=== PATIENT | female | born 1940 | race American Indian/Alaskan Native ===

== ENCOUNTER 2016-11-08 09:30 | Outpatient (CLI) | payer MEDICARE ==
--- NOTE | 2016-11-10 14:31 | Vascular Lab Report ---
CAROTID DUPLEX STUDY: RIGHT PSVEDV CCA PROX:9312 CCA DIST:[id number] ICA PROX:[id number] ICA MID:[id number] ICA DIST:6714 ECA: [id number] VERT: 87 13 LEFT PSVEDV CCA PROX:7813 CCA DIST:9715 ICA PROX:13234 ICA MID:[id number] ICA DIST:[id number] ECA: [id number] VERT: 69 12 REASON FOR EXAM: Right eye visual disturbances. Possible transient monocular blindness. 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 Intimal thickening is noted in the right carotid bulb without significant plaque formation. The common carotid artery is patent. The external carotid artery is patent. The vertebral artery has antegrade flow. COMMENTS ON THE LEFT: Doppler frequency analysis is consistent with 50 to 79 percent diameter reduction by velocity criteria of the internal carotid artery. Minimal amount of calcified non-ulcerated plaque is noted. The common carotid artery is patent. The external carotid artery is patent. The vertebral artery has antegrade flow. 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 50 to 79 percent diameter reduction by velocity criteria only of the internal carotid artery noted on the left. Consider repeat carotid artery duplex in 12 months.
== END 2016-11-08 09:31 | disposition home or self-care (01) ==
LOC: VAS 09:30
PROVIDERS: ATTEND Psychiatry & Neurology Neurology
DX: H93.19 Tinnitus, unspecified ear (principal)
CPT/HCPCS: 93880

== ENCOUNTER 2016-11-11 10:01 | Emergency (ER) | payer MEDICARE ==
[2016-11-11] MEDS ORDERED: DUONEB 0.5 MG-3 MG/3 ML SOLN IH ONE ×3 (10:31→20:43)
[2016-11-11 19:20] LABS: Basophils % (Auto) 0.4 % (0.0-1.8); Eosinophils % (Auto) 0.2 % (0.0-4.3); Hematocrit 38.8 % (30.3-42.9); Hemoglobin 12.8 gm/dl (10.1-14.3); Mean Corpuscular HGB Conc 33 % (30-34); Mean Corpuscular Volume 79 fl (79-97); Platelet Count 151 K/mm3 (140-440); Red Blood Count 4.94 M/mm3 (3.65-5.03); Red Cell Distribution Width 16.8 % (13.2-15.2); White Blood Count 5.6 K/mm3 (4.5-11.0)
[2016-11-11 19:24] LABS: Mean Corpuscular Hemoglobin 26 pg (28-32)
[2016-11-11 19:46] LABS: Alanine Aminotransferase 14 units/L (7-56); Albumin/Globulin Ratio 1.3 %; Alkaline Phosphatase 53 units/L (35-129); Bilirubin,Total 0.4 mg/dL (0.1-1.2); Blood Urea Nitrogen 12 mg/dL (7-17); Calcium 10.2 mg/dL (8.4-10.2); Carbon Dioxide 28 mmol/L (22-30); Chloride 101.7 mmol/L (98-107); Creatine Kinase 57 units/L (30-135); Glucose 191 mg/dL (65-100); Potassium 4.6 mmol/L (3.6-5.0); Sodium 144 mmol/L (137-145)
[2016-11-11 19:54] LABS: Anion Gap 19 mmol/L
--- NOTE | 2016-11-11 20:04 | Emergency Department Report ---
ED Asthma HPI - General Chief Complaint: Adult Asthma Stated Complaint: ASTHMA/CRISTIANO/CHEST PAIN Time Seen by Provider: 11/11/16 18:35 Source: patient Mode of arrival: Wheelchair Limitations: No Limitations, Physical Limitation - History of Present Illness Initial Comments: Patient presents with cough and difficulty breathing x 3 weeks. She states she has been dx with asthma since 11yo. She has respiratory nebulizer and inhaler at home but states they were not helping with sob. She denies cold symptoms, CP , dizziness, n/v/d, fever, chills and has a hx of CHF, dvt, she denies to me hx of PE. She has a lengthy medical history. She is also c/o right shoulder pain 05/26, she denies injury, falling, swelling, brusing, redness. She denies hx of pain. She admits to worsening with movement and has not taken anything for the pain. MD Complaint: shortness of breath, wheezing -: Gradual, week(s) (3) Asthma History: childhood onset, history of prior ED visit Severity: moderate Context: none known Associated Symptoms: dry cough, chest pain Treatments Prior to Arrival: inhaled bronchodilator - Related Data Current Asthma Therapy: inhaled bronchodilator Home Medications Medication Instructions Recorded Confirmed Last Taken Prednisone [predniSONE] 2.5 mg PO QDAY 11/26/13 10/24/15 07/12/15 hydrALAZINE [Apresoline TAB] 25 mg PO Q8HR 01/30/15 10/24/15 07/12/15 Previous Rx's Medication Instructions Recorded Last Taken Type Insulin NPH Hum/Reg Insulin Hm 15 unit SQ BID #10 ml 01/26/15 07/19/15 Rx [HumuLIN 70-30 Vial] traZODone [Desyrel] 50 mg PO QHS tablet 01/26/15 07/19/15 Rx ALPRAZolam [Xanax TAB] 0.25 mg PO Q12HR #60 tablet 07/23/15 Unknown Rx Carvedilol [Coreg] 12.5 mg PO BID #30 tablet 07/23/15 Unknown Rx HYDROcodone/APAP 5-325 [Sedona 1 each PO Q8H PRN #30 tablet 07/23/15 Unknown Rx 5-325 mg TAB] Meclizine [Antivert] 25 mg PO Q12HR #30 tablet 07/23/15 Unknown Rx hydrALAZINE [Apresoline TAB] 100 mg PO Q8HR #90 tablet 07/23/15 Unknown Rx methylPREDNISolone [Medrol Dose 4 mg PO QAM #1 pack 07/23/15 Unknown Rx Edouard] Albuterol *Only Ed* [Proventil 2.5 mg IH Q6HRT PRN #1 nebu 02/22/16 1 Day Ago Rx 0.5% NEBS] 2.5 Alendronate Sodium [Fosamax] 70 mg PO QWEEK #4 tablet 02/22/16 1 Day Ago Rx 70 Aspirin EC [Aspirin Enteric Coated 81 mg PO QDAY #30 tablet 02/22/16 1 Day Ago Rx TAB] 81 Bisacodyl [Dulcolax suppos] 10 mg RI QDAY PRN #20 supp.rect 02/22/16 1 Day Ago Rx 10 Budesoni/Formotero 160-4.5(Nf) 10.2 gm IH PRN PRN #1 inha 02/22/16 1 Day Ago Rx [Symbicort 160-4.5 (Nf)] 10.2 Butalb/Acetamin/Caff 50-325-40 1 tab PO Q4H PRN #20 tablet 02/22/16 1 Day Ago Rx [Fioricet] 1 Clopidogrel [Plavix] 75 mg PO QDAY #30 tablet 02/22/16 1 Day Ago Rx 75 FLUoxetine [PROzac] 20 mg PO QDAY #30 capsule 02/22/16 1 Day Ago Rx 20 Famotidine [Pepcid] 20 mg PO BID #60 tablet 02/22/16 1 Day Ago Rx 20 Insulin NPH Hum/Reg Insulin Hm 15 unit SQ QAMDIAB #1 vial 02/22/16 1 Day Ago Rx [HumuLIN 70-30 Vial] 15 Losartan/Hydrochlorothiazide 1 each PO QDAY #30 tablet 02/22/16 1 Day Ago Rx [Hyzaar 100-25 TAB] 1 Lovastatin Tab [Mevacor] 20 mg PO QPM #60 tablet 02/22/16 1 Day Ago Rx 20 Magnesium Hydroxide [Milk of 30 ml PO Q4H PRN #20 oral.liqd 02/22/16 1 Day Ago Rx Magnesia] 30 Meclizine [Antivert] 25 mg PO Q12HR PRN #20 tablet 02/22/16 1 Day Ago Rx 25 Montelukast [Singulair] 10 mg PO QPM #30 tablet 02/22/16 1 Day Ago Rx 10 amLODIPine [Norvasc] 10 mg PO DAILY #30 tab 02/22/16 1 Day Ago Rx 10 cloNIDine [Catapres] 0.1 mg PO Q8HR #90 tablet 02/22/16 1 Day Ago Rx 0.1 hydrALAZINE [Apresoline TAB] 100 mg PO TID #90 tab 02/22/16 1 Day Ago Rx 100 Insulin NPH Hum/Reg Insulin Hm 15 unit SQ QDIPM #1 vial 04/07/16 1 Day Ago Rx [HumuLIN 70-30 Vial] 10 ALPRAZolam [Xanax TAB] 0.25 mg PO HS #14 tablet 06/26/16 Unknown Rx Benzonatate [Tessalon Perles] 100 mg PO Q8HR #21 capsule 06/26/16 Unknown Rx Fluticasone [Flonase] 200 mcg NS QDAY #1 bottle 06/26/16 Unknown Rx Levofloxacin [Levaquin TAB] 500 mg PO QDAY #5 tablet 06/26/16 Unknown Rx Lisinopril [Zestril TAB] 10 mg PO QDAY #30 tablet 06/26/16 Unknown Rx Loratadine [Claritin] 10 mg PO QDAY #30 tablet 06/26/16 Unknown Rx Magnesium Oxide [Mag-Ox] 400 mg PO QDAY #14 tablet 06/26/16 Unknown Rx predniSONE [Deltasone] 40 mg PO QDAY #5 tablet 06/26/16 Unknown Rx traMADol [Ultram 50 MG tab] 50 mg PO Q12H PRN #20 tablet 06/26/16 Unknown Rx Amoxicillin/K Clav Tab [Augmentin 1 tab PO Q12HR #10 tab 11/11/16 Unknown Rx 875 mg] HYDROcodone/APAP 5-325 [Sedona 1 each PO Q12HR PRN #6 tablet 11/11/16 Unknown Rx 5/325] Allergies Allergy/AdvReac Type Severity Reaction Status Date / Time No Known Allergies Allergy Verified 10/24/15 10:25 ED Review of Systems ROS: Stated complaint: ASTHMA/CRISTIANO/CHEST PAIN Other details as noted in HPI Constitutional: denies: chills, fever Eyes: denies: eye pain, eye discharge, vision change ENT: denies: ear pain, throat pain Respiratory: cough, shortness of breath. denies: wheezing Cardiovascular: chest pain (patient states due to cough). denies: palpitations Endocrine: no symptoms reported Gastrointestinal: denies: abdominal pain, nausea, diarrhea Genitourinary: denies: urgency, dysuria, discharge Musculoskeletal: as per HPI. denies: back pain, joint swelling, arthralgia Skin: denies: rash, lesions Neurological: denies: headache, weakness, paresthesias ED Past Medical Hx - Past Medical History Previous Medical History?: Yes Hx Hypertension: Yes Hx Heart Attack/AMI: No Hx Congestive Heart Failure: Yes Hx Diabetes: Yes Hx Deep Vein Thrombosis: Yes Hx Pulmonary Embolism: Yes Hx Arthritis: Yes Hx Kidney Stones: Yes Hx Asthma: Yes Hx COPD: No Hx Tuberculosis: No Hx HIV: No Additional medical history: Blood clots to bilateral legs, Legally blind - Surgical History Past Surgical History?: Yes Hx Coronary Stent: No Hx Pacemaker: No Hx Internal Defibrillator: No Additional Surgical History: fatty tumor from left shoulder removed. hysterectomy - Social History Smoking Status: Former Smoker Substance Use Type: Prescribed, Other - Medications Home Medications: Home Medications Medication Instructions Recorded Confirmed Last Taken Type Prednisone [predniSONE] 2.5 mg PO QDAY 11/26/13 10/24/15 07/12/15 History Insulin NPH Hum/Reg Insulin Hm 15 unit SQ BID #10 ml 01/26/15 10/24/15 07/19/15 Rx [HumuLIN 70-30 Vial] traZODone [Desyrel] 50 mg PO QHS tablet 01/26/15 10/24/15 07/19/15 Rx hydrALAZINE [Apresoline TAB] 25 mg PO Q8HR 01/30/15 10/24/15 07/12/15 History ALPRAZolam [Xanax TAB] 0.25 mg PO Q12HR #60 tablet 07/23/15 10/24/15 Unknown Rx Carvedilol [Coreg] 12.5 mg PO BID #30 tablet 07/23/15 10/24/15 Unknown Rx HYDROcodone/APAP 5-325 [Sedona 1 each PO Q8H PRN #30 tablet 07/23/15 10/24/15 Unknown Rx 5-325 mg TAB] Meclizine [Antivert] 25 mg PO Q12HR #30 tablet 07/23/15 10/24/15 Unknown Rx hydrALAZINE [Apresoline TAB] 100 mg PO Q8HR #90 tablet 07/23/15 10/24/15 Unknown Rx methylPREDNISolone [Medrol Dose 4 mg PO QAM #1 pack 07/23/15 10/24/15 Unknown Rx Edouard] Albuterol *Only Ed* [Proventil 2.5 mg IH Q6HRT PRN #1 nebu 02/22/16 06/23/16 1 Day Ago Rx 0.5% NEBS] 2.5 Alendronate Sodium [Fosamax] 70 mg PO QWEEK #4 tablet 02/22/16 06/23/16 1 Day Ago Rx 70 Aspirin EC [Aspirin Enteric Coated 81 mg PO QDAY #30 tablet 02/22/16 06/23/16 1 Day Ago Rx TAB] 81 Bisacodyl [Dulcolax suppos] 10 mg RI QDAY PRN #20 supp.rect 02/22/16 06/23/16 1 Day Ago Rx 10 Budesoni/Formotero 160-4.5(Nf) 10.2 gm IH PRN PRN #1 inha 02/22/16 06/23/16 1 Day Ago Rx [Symbicort 160-4.5 (Nf)] 10.2 Butalb/Acetamin/Caff 50-325-40 1 tab PO Q4H PRN #20 tablet 02/22/16 06/23/16 1 Day Ago Rx [Fioricet] 1 Clopidogrel [Plavix] 75 mg PO QDAY #30 tablet 02/22/16 06/23/16 1 Day Ago Rx 75 FLUoxetine [PROzac] 20 mg PO QDAY #30 capsule 02/22/16 06/23/16 1 Day Ago Rx 20 Famotidine [Pepcid] 20 mg PO BID #60 tablet 02/22/16 06/23/16 1 Day Ago Rx 20 Insulin NPH Hum/Reg Insulin Hm 15 unit SQ QAMDIAB #1 vial 02/22/16 06/23/16 1 Day Ago Rx [HumuLIN 70-30 Vial] 15 Losartan/Hydrochlorothiazide 1 each PO QDAY #30 tablet 02/22/16 06/23/16 1 Day Ago Rx [Hyzaar 100-25 TAB] 1 Lovastatin Tab [Mevacor] 20 mg PO QPM #60 tablet 02/22/16 06/23/16 1 Day Ago Rx 20 Magnesium Hydroxide [Milk of 30 ml PO Q4H PRN #20 oral.liqd 02/22/16 06/23/16 1 Day Ago Rx Magnesia] 30 Meclizine [Antivert] 25 mg PO Q12HR PRN #20 tablet 02/22/16 06/23/16 1 Day Ago Rx 25 Montelukast [Singulair] 10 mg PO QPM #30 tablet 02/22/16 06/23/16 1 Day Ago Rx 10 amLODIPine [Norvasc] 10 mg PO DAILY #30 tab 02/22/16 06/23/16 1 Day Ago Rx 10 cloNIDine [Catapres] 0.1 mg PO Q8HR #90 tablet 02/22/16 06/23/16 1 Day Ago Rx 0.1 hydrALAZINE [Apresoline TAB] 100 mg PO TID #90 tab 02/22/16 06/23/16 1 Day Ago Rx 100 Insulin NPH Hum/Reg Insulin Hm 15 unit SQ QDIPM #1 vial 04/07/16 06/23/16 1 Day Ago Rx [HumuLIN 70-30 Vial] 10 ALPRAZolam [Xanax TAB] 0.25 mg PO HS #14 tablet 06/26/16 Unknown Rx Benzonatate [Tessalon Perles] 100 mg PO Q8HR #21 capsule 06/26/16 Unknown Rx Fluticasone [Flonase] 200 mcg NS QDAY #1 bottle 06/26/16 Unknown Rx Levofloxacin [Levaquin TAB] 500 mg PO QDAY #5 tablet 06/26/16 Unknown Rx Lisinopril [Zestril TAB] 10 mg PO QDAY #30 tablet 06/26/16 Unknown Rx Loratadine [Claritin] 10 mg PO QDAY #30 tablet 06/26/16 Unknown Rx Magnesium Oxide [Mag-Ox] 400 mg PO QDAY #14 tablet 06/26/16 Unknown Rx predniSONE [Deltasone] 40 mg PO QDAY #5 tablet 06/26/16 Unknown Rx traMADol [Ultram 50 MG tab] 50 mg PO Q12H PRN #20 tablet 06/26/16 Unknown Rx Amoxicillin/K Clav Tab [Augmentin 1 tab PO Q12HR #10 tab 11/11/16 Unknown Rx 875 mg] HYDROcodone/APAP 5-325 [Sedona 1 each PO Q12HR PRN #6 tablet 11/11/16 Unknown Rx 5/325] ED Physical Exam - General Limitations: No Limitations General appearance: alert, in no apparent distress - Head Head exam: Present: atraumatic, normocephalic - Eye Eye exam: Present: other (patient is legally blind in both eyes) - ENT ENT exam: Present: mucous membranes moist - Neck Neck exam: Present: normal inspection, full ROM. Absent: tenderness - Respiratory Respiratory exam: Present: normal lung sounds bilaterally, wheezes (throughout) , rhonchi (throughout). Absent: respiratory distress - Cardiovascular Cardiovascular Exam: Present: regular rate, normal rhythm. Absent: systolic murmur, diastolic murmur, rubs, gallop - GI/Abdominal GI/Abdominal exam: Present: soft, normal bowel sounds. Absent: tenderness - Extremities Exam Extremities exam: Present: normal inspection, tenderness - Expanded Upper Extremity Exam Right Shoulder Exam: Present: normal inspection, full ROM (but with pain, unable to lift right arm above shoulder ), tenderness (anterior right shoulder and axilla) . Absent: swelling, abrasion, laceration Upper Arm exam: Present: normal inspection, tenderness (anteriorly). Absent: swelling, abrasion, laceration, ecchymosis, erythema Elbow exam: Present: normal inspection, full ROM. Absent: tenderness, swelling , abrasion, laceration, ecchymosis, deformity Forearm Wrist exam: Present: normal inspection, full ROM. Absent: tenderness, swelling, abrasion, laceration, ecchymosis Hand Wrist exam: Present: normal inspection, full ROM. Absent: tenderness, swelling, abrasion Neuro motor exam: Present: wrist extension intact, thumb opposition intact, thumb IP flexion intact, thumb adduction intact, fingers 2-5 abduction intact Neurosensory exam: Present: radial nerve intact, ulnar nerve intact Vascular: Present: normal capillary refill. Absent: vascular compromise - Back Exam Back exam: Present: normal inspection. Absent: tenderness - Neurological Exam Neurological exam: Present: alert, oriented X3 - Psychiatric Psychiatric exam: Present: normal affect, normal mood - Skin Skin exam: Present: warm, dry, intact, normal color. Absent: rash ED Course Vital Signs 11/11/16 11/11/16 11/11/16 10:24 19:40 21:54 Temperature 98.7 F 98.4 F Pulse Rate 65 59 L 59 L Respiratory 22 16 Rate Blood Pressure 143/94 185/65 Blood Pressure 205/74 [Left] O2 Sat by Pulse 100 99 Oximetry - Reevaluation(s) Reevaluation #1: 11/11/16 22:09 Patient has been given her home dose of insulin and sliding scale for administration of solumedrol. I have advised her to take her BG more frequently due to this. We have given her coreg and losartan (these are her daily medication she takes at night) for elevated bp. Patient admits to feeling much better, decreased sob, and decreased right shoulder pain. ED Medical Decision Making - Lab Data Result diagrams: 11/11/16 19:07 11/11/16 19:07 - Radiology Data PROCEDURE: XR CHEST ROUTINE 2V TECHNIQUE: Two view PA lateral chest HISTORY: sob, cough COMPARISON: No prior studies are available for comparison. FINDINGS: Mildly enlarged heart shadow. Mild central congestion. COPD. Bronchovascular sheath thickening evident. Moderate thoracic spine kyphosis. IMPRESSION: COPD. Central bronchitis. Mild cardiomegaly. PROCEDURE: XR SHOULDER 2 RT TECHNIQUE: Three views right shoulder HISTORY: shoulder pain COMPARISON: No prior studies are available for comparison. FINDINGS: Suspect mild swelling right shoulder. Moderate degenerative changes of the shoulder joint AC joint. No dislocation IMPRESSION: No acute fracture or dislocation seen - Medical Decision Making Patient presents with shortness of breath 3 weeks despite using nebulizer and inhalers at home. She also complains of right shoulder pain but denies injury. She already has tramadol at home but states this has only mildly helped the pain. I will give her Sedona 5 prescription for her shoulder pain. Her shoulder xray is unremarkable showing mild swelling. I have given her tramadol 50 mg, IV Medrol 80 mg here with mild improvement of pain and sob. After receiving respiratory nebulizer she states she is feeling better and breathing better. I will advise her to continue her daily prednisone and nebulizer/ inhalers at home. Lung sounds have improved after nebulizer treatment. Her CMP , CBC, BNP are all unremarkable. Her chest xray shows bronchitis, copd. I will treat her with Augmentin for the bronchitis. - Differential Diagnosis bronchitis, pneumonia, asthma, shoulder dislocation, shoulder fracture Critical Care Time: No Critical care attestation.: If time is entered above; I have spent that time in minutes in the direct care of this critically ill patient, excluding procedure time. ED Disposition Clinical Impression: Type 2 diabetes mellitus with insulin therapy, Steroid-dependent asthma, Bronchitis, Swelling of joint, shoulder, right, Hypertension, Acute asthma exacerbation Disposition: DISCHARGED TO HOME OR SELFCARE Is pt being admited?: No Does the pt Need Aspirin: No Condition: Stable Instructions: Diabetes Mellitus Type 2 in Adults (ED), Asthma (ED), Reactive Airways Disease (ED), Chronic Bronchitis (ED), Hypertension (ED) Additional Instructions: I will give you norco 5mg for your shoulder pain. Also advise to continue taking prednisone daily. Continue taking your nebulizer treatment and inhaler as prescribed. F/u with pulmonary doctor as discussed. Prescriptions: Amoxicillin/K Clav Tab [Augmentin 875 mg] 1 tab PO Q12HR #10 tab HYDROcodone/APAP 5-325 [Sedona 5/325] 1 each PO Q12HR PRN #6 tablet PRN Reason: Pain Referrals: GEMA BARROSO MD [Primary Care Provider] - 3-5 Days DINA ROACH MD [Staff Physician] - 3-5 Days Time of Disposition: 22:12
[2016-11-11] MEDS ORDERED: ULTRAM PO ONE (20:14)
--- NOTE | 2016-11-11 20:39 | XRay Report ---
FINAL REPORT PROCEDURE: XR SHOULDER 2 RT TECHNIQUE: Three views right shoulder HISTORY: shoulder pain COMPARISON: No prior studies are available for comparison. FINDINGS: Suspect mild swelling right shoulder. Moderate degenerative changes of the shoulder joint AC joint. No dislocation IMPRESSION: No acute fracture or dislocation seen
--- NOTE | 2016-11-11 20:40 | XRay Report ---
FINAL REPORT PROCEDURE: XR CHEST ROUTINE 2V TECHNIQUE: Two view PA lateral chest HISTORY: sob, cough COMPARISON: No prior studies are available for comparison. FINDINGS: Mildly enlarged heart shadow. Mild central congestion. COPD. Bronchovascular sheath thickening evident. Moderate thoracic spine kyphosis. IMPRESSION: COPD. Central bronchitis. Mild cardiomegaly.
[2016-11-11] MEDS ORDERED: COZAAR PO ONE (21:12)
[2016-11-11] MEDS ORDERED: COREG PO ONE (21:12)
[2016-11-11 22:48] VITALS: BP 176/67
== END 2016-11-11 22:51 | disposition home or self-care (01) ==
LOC: ED 10:01
DX: J45.901 Unspecified asthma with (acute) exacerbation (principal); E11.9 Type 2 diabetes mellitus without complications; M25.411 Effusion, right shoulder; I10 Essential (primary) hypertension; I82.409 Acute embolism and thrombosis of unspecified deep veins of unspecified lower extremity; M19.90 Unspecified osteoarthritis, unspecified site; Z79.4 Long term (current) use of insulin; Z98.890 Other specified postprocedural states; Z79.82 Long term (current) use of aspirin
CPT/HCPCS: 36415; 71020; 73030; 80053; 82550; 83880; 85025; 93005; 93010; 94640; 96372; 96374; 96375; 99284; J2920; J1815

== ENCOUNTER 2017-01-10 11:15 | Day surgery (SDC) | payer MEDICARE ==
[~2017-01-10 11:15] MED LIST: AK-Dilate OD ONE; IOPIDINE OD ONE; MYDRIACYL OD ONE
[2017-01-10] MEDS ORDERED: AK-Dilate OD ONE (11:45)
[2017-01-10] MEDS ORDERED: IOPIDINE OD ONE ×2 (11:45→12:37)
[2017-01-10] MEDS ORDERED: MYDRIACYL OD ONE (11:45)
[2017-01-10 12:50] VITALS: BP 142/60
== END 2017-01-10 12:38 | disposition home or self-care (01) ==
LOC: OR 11:15
PROVIDERS: ATTEND Ophthalmology
DX: E11.36 Type 2 diabetes mellitus with diabetic cataract (principal); H26.491 Other secondary cataract, right eye; I10 Essential (primary) hypertension; E78.00 Pure hypercholesterolemia, unspecified; J45.909 Unspecified asthma, uncomplicated; J44.9 Chronic obstructive pulmonary disease, unspecified; K21.9 Gastro-esophageal reflux disease without esophagitis; E66.9 Obesity, unspecified; Z68.41 Body mass index [BMI] 40.0-44.9, adult; Z87.891 Personal history of nicotine dependence; Z86.711 Personal history of pulmonary embolism; Z87.01 Personal history of pneumonia (recurrent)
CPT/HCPCS: 82962

== ENCOUNTER 2017-05-11 15:54 | Emergency (ER) | payer MEDICARE ==
[2017-05-11 16:11] VITALS: BP 141/96
[2017-05-11] MEDS: TYLENOL #3 PO ONE (18:03)
[2017-05-11] MEDS: ZOFRAN ODT PO ONE (18:03)
--- NOTE | 2017-05-11 19:40 | XRay Report ---
FINAL REPORT EXAM: XR HIPS BILAT 2V W/PELVIS HISTORY: fall/pain/rt hip TECHNIQUE: AP view of pelvis and frog-leg lateral view of right hip. PRIORS: None. FINDINGS: Mildly acute, cortical angulation along tensile side of right femoral head-neck junction may be positional. No other apparent fracture or dislocation. Degenerative changes in the bilateral hip joints and also lower lumbar spine. Diffuse soft tissue vascular calcifications in the bilateral proximal thighs. Remainder of soft tissues grossly unremarkable. IMPRESSION: 1. Mildly acute cortical angulation in the right femoral head-neck junction may be positional or artifactual, although subtle fracture not completely excluded. If symptoms persist or clinical suspicion remains high, correlation with CT may help in further evaluation, as clinically indicated. 2. Degenerative changes.
--- NOTE | 2017-05-11 21:32 | Cat Scan Report ---
FINAL REPORT EXAM: CT PELVIS WO CON HISTORY: r/opossible femur Head/neck fx TECHNIQUE: Spiral CT scanning of the pelvis. No oral or IV contrast administered. Multiplanar reformations. PRIORS: Bilateral hip radiographs of same date. FINDINGS: Diffuse osteopenia and degenerative change in the bilateral hip joints and lumbosacral spine. Small, geographic foci of decreased density in the bilateral superior femoral heads, right greater than left, with thin sclerotic margins may represent mild AVN. No significant femoral head flattening or other deformation. No acute fracture or dislocation. Soft tissues grossly unremarkable. Visualized bowel grossly unremarkable. No significant free peritoneal fluid. Diffuse aortoiliac calcification without aneurysmal dilatation. IMPRESSION: 1. No acute osseous abnormality. 2. Degenerative changes and possible small foci of AVN in the bilateral femoral heads, right greater than left.
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
== END 2017-05-11 22:35 | disposition home or self-care (01) ==
LOC: ED 15:54
DX: M25.551 Pain in right hip (principal); R11.0 Nausea; I11.0 Hypertensive heart disease with heart failure; I50.9 Heart failure, unspecified; E11.9 Type 2 diabetes mellitus without complications; M19.90 Unspecified osteoarthritis, unspecified site; K21.9 Gastro-esophageal reflux disease without esophagitis; J44.9 Chronic obstructive pulmonary disease, unspecified; Z91.018 Allergy to other foods; Z86.718 Personal history of other venous thrombosis and embolism; Z87.891 Personal history of nicotine dependence; Z79.4 Long term (current) use of insulin
CPT/HCPCS: 72192; 73521; 82962; 99284; Q0162

== ENCOUNTER 2017-07-22 12:02 | Outpatient (CLI) | payer MEDICARE ==
--- NOTE | 2017-07-23 10:14 | Vascular Lab Report ---
LOWER EXTREMITY VENOUS DUPLEX: REASON FOR EXAM: Swelling of the lower extremities. COMMENTS ON THE RIGHT: All veins visualized are freely compressible without evidence of internal echogenicity. Flow is spontaneous and phasic throughout. COMMENTS ON THE LEFT: All veins visualized are freely compressible without evidence of internal echogenicity. Flow is spontaneous and phasic throughout. IMPRESSION: No evidence of acute or chronic deep venous thrombosis in either lower extremity.
== END 2017-07-22 12:03 | disposition home or self-care (01) ==
LOC: VAS 12:02
PROVIDERS: ATTEND Podiatrist Foot & Ankle Surgery
DX: M79.89 Other specified soft tissue disorders (principal); M79.662 Pain in left lower leg
CPT/HCPCS: 93970

== ENCOUNTER 2017-10-20 16:37 | Inpatient (IN) | payer MEDICARE ==
[2017-10-20] MEDS ORDERED: PROVENTIL IH ONE (16:58)
[2017-10-20] MEDS ORDERED: ATROVENT IH ONE (16:58)
[2017-10-20 18:06] LABS: Basophils # (Auto) 0.1 K/mm3 (0.0-0.1); Basophils % (Auto) 1.2 % (0.0-1.8); Eosinophils # (Auto) 0.4 K/mm3 (0.0-0.4); Eosinophils % (Auto) 8.6 % (0.0-4.3); Hematocrit 34.9 % (30.3-42.9); Hemoglobin 11.6 gm/dl (10.1-14.3); Lymphocytes # (Auto) 1.4 K/mm3 (1.2-5.4); Lymphocytes % (Auto) 29.1 % (13.4-35.0); Mean Corpuscular HGB Conc 33 % (30-34); Mean Corpuscular Volume 78 fl (79-97); Monocytes # (Auto) 0.8 K/mm3 (0.0-0.8); Monocytes % (Auto) 15.7 % (0.0-7.3); Platelet Count 166 K/mm3 (140-440); Red Blood Count 4.45 M/mm3 (3.65-5.03); Red Cell Distribution Width 16.7 % (13.2-15.2)
[2017-10-20 18:08] LABS: Mean Corpuscular Hemoglobin 26 pg (28-32)
[2017-10-20 18:19] LABS: BUN/Creatinine Ratio 40; Blood Urea Nitrogen 24 mg/dL (7-17); Calcium 9.8 mg/dL (8.4-10.2); Hemolysis Index 6
--- NOTE | 2017-10-20 20:08 | XRay Report ---
FINAL REPORT EXAM: XR CHEST ROUTINE 2V HISTORY: Shortness of breath TECHNIQUE: Two views of the chest Comparison: 06/10/2017, 11/01/2016 FINDINGS: Heart size is mildly enlarged. There are ill-defined primarily basilar infiltrates. There has been previous vertebroplasty. There is underlying emphysema with peribronchial chronic thickening. The aorta is atherosclerotic. IMPRESSION: Cardiomegaly. Peribronchial thickening with mild ill-defined bilateral basal infiltrates without focal consolidation. These findings may be chronic. There are no pleural effusions. Previous kyphoplasty/vertebroplasty.
[2017-10-21] MEDS ORDERED: LOPRESSOR IV ONE ×2 (02:58→05:13)
[2017-10-21] MEDS ORDERED: DUONEB *Not for PRN Use IH ONE ×2 (03:00→11:40)
[2017-10-21 03:42] LABS: INR 1.06 (0.87-1.13)
--- NOTE | 2017-10-21 04:20 | Emergency Department Report ---
HPI - General Chief Complaint: Dyspnea/Respdistress Time Seen by Provider: 10/21/17 02:38 - HPI HPI: This is a 77-year-old after [place] female presents to the emergency department from home, brought in by a friend, with complaint of a one-week history of shortness breath, wheezing and "rattling in my chest." She also says that she has some chest tightness and/or discomfort. She has been using her albuterol inhaler and nebulizer treatments without much relief. She has a past medical history significant for asthma, CHF, COPD, diabetes, GERD, hypertension and previous PE and DVTs. No recent travel or sick contacts at home. Her PCP is Dr. Navarro but she has not seen them regarding her symptoms. ED Past Medical Hx - Past Medical History Hx Hypertension: Yes Hx Heart Attack/AMI: No Hx Congestive Heart Failure: Yes (IN THE PAST , RESOLVED) Hx Diabetes: Yes Hx Deep Vein Thrombosis: Yes Hx Pulmonary Embolism: Yes Hx GERD: Yes Hx Arthritis: Yes Hx Kidney Stones: Yes Hx Asthma: Yes Hx COPD: Yes Hx Tuberculosis: No Hx HIV: No Additional medical history: Blood clots to bilateral legs, Legally blind - Surgical History Hx Coronary Stent: No Hx Pacemaker: No Hx Internal Defibrillator: No Additional Surgical History: fatty tumor from left shoulder removed. hysterectomy - Social History Smoking Status: Never Smoker Substance Use Type: None - Medications Home Medications: Home Medications Medication Instructions Recorded Confirmed Last Taken Type Alendronate Sodium [Fosamax] 70 mg PO QWEEK #4 tablet 02/22/16 10/21/17 1 Day Ago Rx ~04/05/16 70 Clopidogrel [Plavix] 75 mg PO QDAY #30 tablet 02/22/16 10/21/17 10/20/17 Rx Montelukast [Singulair] 10 mg PO QPM #30 tablet 02/22/16 10/21/17 10/20/17 Rx Bumetanide [Bumex 1 mg tab] 0.5 mg PO QDAY 06/10/17 10/21/17 10/20/17 History Fluticasone/Vilanterol [Breo 1 puff PO QDAY 06/10/17 10/21/17 Unknown History Ellipta 100-25 Mcg INH] Insulin NPH/Regular [NovoLIN 70/30] 10 units SC QPM 06/10/17 10/21/17 10/20/17 History Insulin NPH/Regular [NovoLIN 70/30] 15 units SC QAM 06/10/17 10/21/17 10/20/17 History Lovastatin Tab [Mevacor] 20 mg PO QHS 06/10/17 10/21/17 10/20/17 History Ranitidine HCl [Zantac 150 MG TAB] 150 mg PO BID 06/10/17 10/21/17 10/20/17 History amLODIPine [Norvasc] 5 mg PO QDAY 06/10/17 10/21/17 10/20/17 History glipiZIDE [Glucotrol] 5 mg PO QDAY 06/10/17 10/21/17 10/20/17 History prednisoLONE 1% SOD PHOSP(NF) 1 drop OS BID 06/10/17 10/24/17 10/20/17 History [Prednisol (Nf)] traZODone [Desyrel] 50 mg PO QHS 06/10/17 10/21/17 10/19/17 History ALBUTEROL Inhaler [ProAir HFA 2 puff IH QID PRN 10/21/17 10/21/17 Unknown History Inhaler] Albuterol Sulfate [Albuterol 0.63% 0.083 mg IH Q4HR PRN 10/21/17 10/21/17 Unknown History NEBS] Docusate Sodium [Colace CAP] 100 mg PO BID PRN 10/21/17 10/21/17 Unknown History Ferrous Sulfate [Feosol 325 MG tab] 325 mg PO BID 10/21/17 10/21/17 10/20/17 History Fluticasone/Vilanterol [Breo 1 each IH Q4HR PRN 10/21/17 10/21/17 Unknown History Ellipta 200-25 Mcg INH] Losartan Potassium 100 mg PO DAILY 10/21/17 10/21/17 10/20/17 History Potassium Chloride [K-Dur] 10 meq PO QDAY 10/21/17 10/21/17 10/20/17 History cloNIDine [Catapres] 0.1 mg PO BID PRN 10/21/17 10/21/17 Unknown History hydrALAZINE [Apresoline TAB] 100 mg PO BID 10/21/17 10/21/17 10/20/17 History Azithromycin [Zithromax] 250 mg PO DAILY #5 tablet 10/24/17 Unknown Rx predniSONE [Deltasone] 50 mg PO QDAY #5 tab 10/24/17 Unknown Rx ED Review of Systems ROS: Stated complaint: SOB Other details as noted in HPI Comment: All other systems reviewed and negative Constitutional: denies: chills, fever Eyes: denies: eye pain, eye discharge, vision change ENT: denies: ear pain, throat pain Respiratory: cough, shortness of breath, wheezing Cardiovascular: chest pain. denies: palpitations Gastrointestinal: denies: abdominal pain, nausea, diarrhea Genitourinary: denies: urgency, dysuria, discharge Musculoskeletal: denies: back pain, joint swelling, arthralgia Skin: denies: rash, lesions Neurological: denies: headache, weakness, paresthesias Physical Exam - Physical Exam Vital Signs: Vital Signs 10/20/17 10/21/17 10/21/17 16:52 00:13 02:35 Temperature 98.3 F 98.1 F Pulse Rate 82 76 Pulse Rate [ Bilateral Throughout] Respiratory 26 H 16 Rate Respiratory Rate [Bilateral Throughout] Blood Pressure 182/66 186/66 Blood Pressure 182/66 [Left] O2 Sat by Pulse 99 98 96 Oximetry 10/21/17 10/21/17 10/21/17 02:45 03:01 03:24 Temperature Pulse Rate 75 73 Pulse Rate [ 82 Bilateral Throughout] Respiratory 18 17 Rate Respiratory 18 Rate [Bilateral Throughout] Blood Pressure 174/65 195/106 Blood Pressure [Left] O2 Sat by Pulse 97 97 Oximetry Physical Exam: GEN: patient well-nourished and well-developed. No acute distress HENT: Atraumatic. Normocephalic. Oropharynx clear. No nystagmus EYES: PERRLA. EOMI. NECK: No midline tenderness to palpation or deformity. No meningismus signs. Full ROM. CARDIO: regular rhythm. Mild tachycardia. Normal heart sounds S1 and S2. No murmurs rubs or gallops. LUNGS:Wheezing throughout the chest. A productive cough heard during examination. Tachypnea but no accessory muscle use. No respiratory distress. ABDOMEN: abdomen is soft, nontender. Normal bowel sounds heard. No guarding a rebound tenderness. MUSCULOSKELETAL: normal range of motion of all four extremities. Nontender to palpation and no deformity.Muscle strength is five out of five for upper and lower extremities bilaterally. Refill less than two seconds. Radial pulses +2 or four bilaterally. SKIN: warm, dry, and intact. NEURO: AAO x 3. Cranial nerves II - XI grossly intact. Patient is following all commands. No slurred speech or gait problems. ED Course Vital Signs 10/20/17 10/21/17 10/21/17 16:52 00:13 02:35 Temperature 98.3 F 98.1 F Pulse Rate 82 76 Pulse Rate [ Bilateral Throughout] Respiratory 26 H 16 Rate Respiratory Rate [Bilateral Throughout] Blood Pressure 182/66 186/66 Blood Pressure 182/66 [Left] O2 Sat by Pulse 99 98 96 Oximetry 10/21/17 10/21/17 10/21/17 02:45 03:01 03:24 Temperature Pulse Rate 75 73 Pulse Rate [ 82 Bilateral Throughout] Respiratory 18 17 Rate Respiratory 18 Rate [Bilateral Throughout] Blood Pressure 174/65 195/106 Blood Pressure [Left] O2 Sat by Pulse 97 97 Oximetry ED Medical Decision Making - Lab Data Result diagrams: 10/23/17 09:31 10/23/17 09:31 - EKG Data -: EKG Interpreted by Me EKG shows normal: sinus rhythm, axis, intervals, QRS complexes, ST-T waves Rate: normal - EKG Data When compared to previous EKG there are: no significant change Interpretation: normal EKG, unchanged when compared t (06/10/17) - Radiology Data Radiology results: report reviewed, image reviewed interpreted by me: Chest x-ray does not show any pleural effusions, obvious pneumonia and no pneumothorax. EXAM: CT ANGIO CHEST HISTORY: SOB, elevated dimer TECHNIQUE: A CT angiogram was performed following the intravenous injection of 100 cc of Omnipaque 350. Rotational, sagittal and coronal reconstructions were reviewed. Comparison is made to the study of 02/16/2016. FINDINGS: There is no evidence of pulmonary embolus. There is calcified plaque in the thoracic aorta. There is no evidence of aneurysm. The heart size is normal. Pericardial fluid is not seen. There is no evidence of adenopathy. The lungs do not show any acute infiltrates. There is mild interstitial prominence in both lungs. There is minimal dependent atelectasis in the bases. Pleural fluid is not seen. In the upper abdomen there is a small hiatal hernia. The adrenal glands appear normal. The skeletal structures reveal multilevel disc degeneration in the thoracic spine. There is a chronic compression fracture of L1 with kyphoplasty changes. At the thoracic inlet the thyroid gland appears normal. IMPRESSION: No evidence of pulmonary embolus or aortic dissection. Mild interstitial prominence in both lungs with minimal dependent atelectasis in the bases. No localized infiltrates or congestion. Small hiatal hernia. Transcribed By: RB Dictated By: ABRAM TURNER MD Electronically Authenticated By: ABRAM TURNER MD Signed Date/Time: 1770 - Medical Decision Making This patient presents with a few days of shortness of breath, wheezing and some chest tightness and/or discomfort. She has a history of asthma and COPD. She had an equivocal D dimer so CT angiography was done that did not show any signs of dissection or pulmonary embolism. She was given breathing treatments, steroids. She will be admitted to hospital for further evaluation and treatment has been accepted for admission with hospitalist. - Differential Diagnosis COPD, asthma, pneumonia, PE, AR Critical Care Time: No Critical care attestation.: If time is entered above; I have spent that time in minutes in the direct care of this critically ill patient, excluding procedure time. ED Disposition Clinical Impression: COPD exacerbation Acute asthma exacerbation Qualifiers: Asthma severity: unspecified severity Asthma persistence: unspecified Qualified Code(s): J45.901 - Unspecified asthma with (acute) exacerbation Chest pain Qualifiers: Chest pain type: unspecified Qualified Code(s): R07.9 - Chest pain, unspecified Disposition: DC-01 TO HOME OR SELFCARE Is pt being admited?: Yes Condition: Stable
--- NOTE | 2017-10-21 06:39 | Cat Scan Report ---
FINAL REPORT EXAM: CT ANGIO CHEST HISTORY: SOB, elevated dimer TECHNIQUE: A CT angiogram was performed following the intravenous injection of 100 cc of Omnipaque 350. Rotational, sagittal and coronal reconstructions were reviewed. Comparison is made to the study of 02/16/2016. FINDINGS: There is no evidence of pulmonary embolus. There is calcified plaque in the thoracic aorta. There is no evidence of aneurysm. The heart size is normal. Pericardial fluid is not seen. There is no evidence of adenopathy. The lungs do not show any acute infiltrates. There is mild interstitial prominence in both lungs. There is minimal dependent atelectasis in the bases. Pleural fluid is not seen. In the upper abdomen there is a small hiatal hernia. The adrenal glands appear normal. The skeletal structures reveal multilevel disc degeneration in the thoracic spine. There is a chronic compression fracture of L1 with kyphoplasty changes. At the thoracic inlet the thyroid gland appears normal. IMPRESSION: No evidence of pulmonary embolus or aortic dissection. Mild interstitial prominence in both lungs with minimal dependent atelectasis in the bases. No localized infiltrates or congestion. Small hiatal hernia.
--- NOTE | 2017-10-21 09:54 | History and Physical Report ---
History of Present Illness Date of examination: 10/21/17 Date of admission: 10/21/2017 Chief complaint: chief complaint: Increasing wheezing and shortness of breath. 1 week. History of present illness: - HPI HPI: This is a 77-year-old female presents to the emergency department from home, brought in by a friend, with complaint of a one-week history of shortness breath , and wheezing .She also says that she has some chest tightness and/or discomfort. She has been using her albuterol inhaler and nebulizer treatments without much relief. She has a past medical history significant for asthma, CHF , COPD, diabetes, GERD, hypertension and previous PE and DVTs. No recent travel or sick contacts at home. Her PCP is Dr. Navarro but she has not seen them regarding her symptoms. Past Medical History Hx Hypertension: Yes Hx Congestive Heart Failure: Yes (IN THE PAST , RESOLVED) Hx Diabetes: Yes Hx Deep Vein Thrombosis: Yes Hx Pulmonary Embolism: Yes Hx GERD: Yes Hx Arthritis: Yes Hx Kidney Stones: Yes Hx Asthma: Yes Hx COPD: Yes Additional medical history: Blood clots to bilateral legs, Legally blind Surgical History Fatty tumor from left shoulder removed. hysterectomy - Social History Smoking Status: Never Smoker Substance Use Type: None - Medications Home Medications: Home Medications Medication Instructions Recorded Confirmed Last Taken Type Alendronate Sodium [Fosamax] 70 mg PO QWEEK #4 tablet 02/22/16 06/10/17 1 Day Ago Rx ~04/05/16 70 Clopidogrel [Plavix] 75 mg PO QDAY #30 tablet 02/22/16 06/10/17 1 Day Ago Rx ~04/05/16 75 Montelukast [Singulair] 10 mg PO QPM #30 tablet 02/22/16 06/10/17 1 Day Ago Rx ~04/05/16 10 Bumetanide [Bumex 1 mg tab] 0.5 mg PO QDAY 06/10/17 06/10/17 Unknown History Cholecalciferol Vit D3 [Vitamin D3] 1 tab PO QDAY 06/10/17 06/10/17 Unknown History Fluticasone [Flonase] 200 mcg NS BID 06/10/17 06/10/17 Unknown History Fluticasone/Vilanterol [Breo 1 puff PO QDAY 06/10/17 06/10/17 Unknown History Ellipta 100-25 Mcg INH] Gabapentin [Neurontin] 300 mg PO QHS 06/10/17 06/10/17 Unknown History Insulin NPH/Regular [NovoLIN 70/30] 10 units SC QPM 06/10/17 06/10/17 Unknown History Insulin NPH/Regular [NovoLIN 70/30] 15 units SC QAM 06/10/17 06/10/17 Unknown History Lovastatin Tab [Mevacor] 20 mg PO QHS 06/10/17 06/10/17 Unknown History Meclizine [Antivert] 25 mg PO QDAY PRN 06/10/17 06/10/17 Unknown History Mv,Jhonathan,Min/Iron/Folic Acid/Lut 1 tab PO QDAY 06/10/17 06/10/17 Unknown History [Complete Multi Tablet] Ranitidine HCl [Zantac 150 MG TAB] 150 mg PO BID 06/10/17 06/10/17 Unknown History amLODIPine [Norvasc] 5 mg PO QDAY 06/10/17 06/10/17 Unknown History glipiZIDE [Glucotrol] 5 mg PO QDAY 06/10/17 06/10/17 Unknown History prednisoLONE 1% SOD PHOSP(NF) 1 drop OS QDAY 06/10/17 06/10/17 Unknown History [Prednisol (Nf)] traZODone [Desyrel] 50 mg PO QHS 06/10/17 06/10/17 Unknown History Levofloxacin [Levaquin TAB] 500 mg PO QDAY #7 tablet 06/12/17 Unknown Rx cloNIDine [Catapres] 0.2 mg PO BID #60 tablet 06/12/17 Unknown Rx Carvedilol [Coreg] 3.125 mg PO BID #60 tablet 06/13/17 Unknown Rx ROS: Stated complaint: SOB Other details as noted in HPI Comment: All other systems reviewed and negative Constitutional: denies: chills, fever Eyes: denies: eye pain, eye discharge, vision change ENT: denies: ear pain, throat pain Respiratory: cough, shortness of breath, wheezing Cardiovascular: chest pain. denies: palpitations Gastrointestinal: denies: abdominal pain, nausea, diarrhea Genitourinary: denies: urgency, dysuria, discharge Musculoskeletal: denies: back pain, joint swelling, arthralgia Skin: denies: rash, lesions Neurological: denies: headache, weakness, paresthesias Medications and Allergies Allergies Allergy/AdvReac Type Severity Reaction Status Date / Time avocado Allergy Unknown Verified 05/11/17 16:05 peanut Allergy Itching Verified 05/11/17 16:05 soybean Allergy Unknown Verified 05/11/17 16:05 KETCHUP Allergy Itching Uncoded 05/11/17 16:05 Home Medications Medication Instructions Recorded Confirmed Last Taken Type Alendronate Sodium [Fosamax] 70 mg PO QWEEK #4 tablet 02/22/16 10/21/17 1 Day Ago Rx ~04/05/16 70 Clopidogrel [Plavix] 75 mg PO QDAY #30 tablet 02/22/16 10/21/17 10/20/17 Rx Montelukast [Singulair] 10 mg PO QPM #30 tablet 02/22/16 10/21/17 10/20/17 Rx Bumetanide [Bumex 1 mg tab] 0.5 mg PO QDAY 06/10/17 10/21/17 10/20/17 History Fluticasone/Vilanterol [Breo 1 puff PO QDAY 06/10/17 10/21/17 Unknown History Ellipta 100-25 Mcg INH] Insulin NPH/Regular [NovoLIN 70/30] 10 units SC QPM 06/10/17 10/21/17 10/20/17 History Insulin NPH/Regular [NovoLIN 70/30] 15 units SC QAM 06/10/17 10/21/17 10/20/17 History Lovastatin Tab [Mevacor] 20 mg PO QHS 06/10/17 10/21/17 10/20/17 History Ranitidine HCl [Zantac 150 MG TAB] 150 mg PO BID 06/10/17 10/21/17 10/20/17 History amLODIPine [Norvasc] 5 mg PO QDAY 06/10/17 10/21/17 10/20/17 History glipiZIDE [Glucotrol] 5 mg PO QDAY 06/10/17 10/21/17 10/20/17 History prednisoLONE 1% SOD PHOSP(NF) 1 drop OS QDAY 06/10/17 10/21/17 10/20/17 History [Prednisol (Nf)] traZODone [Desyrel] 50 mg PO QHS 06/10/17 10/21/17 10/19/17 History ALBUTEROL Inhaler [Proair] 2 puff IH QID PRN 10/21/17 10/21/17 Unknown History Albuterol Sulfate [Albuterol 0.63% 0.083 mg IH Q4HR PRN 10/21/17 10/21/17 Unknown History NEBS] Docusate Sodium [Colace] 100 mg PO BID PRN 10/21/17 10/21/17 Unknown History Ferrous Sulfate [Feosol] 325 mg PO BID 10/21/17 10/21/17 10/20/17 History Fluticasone/Vilanterol [Breo 1 each IH Q4HR PRN 10/21/17 10/21/17 Unknown History Ellipta 200-25 Mcg INH] Losartan Potassium 100 mg PO DAILY 10/21/17 10/21/17 10/20/17 History Potassium Chloride [K-Dur] 10 meq PO QDAY 10/21/17 10/21/17 10/20/17 History cloNIDine [Catapres] 0.1 mg PO BID PRN 10/21/17 10/21/17 Unknown History hydrALAZINE [Apresoline TAB] 100 mg PO BID 10/21/17 10/21/17 10/20/17 History Exam - Constitutional Vitals: Temp Pulse Resp BP Pulse Ox 98.1 F 77 18 165/72 97 10/21/17 00:13 10/21/17 06:58 10/21/17 06:58 10/21/17 06:58 10/21/17 06:58 General appearance: Present: mild distress, well-nourished - EENT Eyes: Present: PERRL ENT: hearing intact, clear oral mucosa - Neck Neck: Present: supple, normal ROM - Respiratory Respiratory effort: normal Respiratory: bilateral: diminished, rhonchi - Cardiovascular Heart rate: 70 Rhythm: regular (70) Heart Sounds: Present: S1 & S2. Absent: rub, click - Extremities Extremities: no ischemia, pulses intact, pulses symmetrical, No edema Peripheral Pulses: within normal limits - Abdominal General gastrointestinal: Present: soft, non-tender, non-distended, normal bowel sounds Female genitourinary: Present: normal - Integumentary Integumentary: Present: clear, warm, dry - Musculoskeletal Musculoskeletal: gait normal, strength equal bilaterally - Psychiatric Psychiatric: appropriate mood/affect, intact judgment & insight - Neurologic Neurologic: CNII-XII intact, moves all extremities - Allied Health Allied health notes reviewed: nursing Results - Labs CBC & Chem 7: 10/20/17 17:54 10/20/17 17:54 Labs: Laboratory Last Values WBC 4.8 K/mm3 (4.5-11.0) 10/20/17 17:54 RBC 4.45 M/mm3 (3.65-5.03) 10/20/17 17:54 Hgb 11.6 gm/dl (10.1-14.3) 10/20/17 17:54 Hct 34.9 % (30.3-42.9) 10/20/17 17:54 MCV 78 fl (79-97) L 10/20/17 17:54 MCH 26 pg (28-32) L 10/20/17 17:54 MCHC 33 % (30-34) 10/20/17 17:54 RDW 16.7 % (13.2-15.2) H 10/20/17 17:54 Plt Count 166 K/mm3 (140-440) 10/20/17 17:54 Lymph % (Auto) 29.1 % (13.4-35.0) 10/20/17 17:54 [place] % (Auto) 15.7 % (0.0-7.3) H 10/20/17 17:54 Eos % (Auto) 8.6 % (0.0-4.3) H 10/20/17 17:54 Baso % (Auto) 1.2 % (0.0-1.8) 10/20/17 17:54 Lymph # 1.4 K/mm3 (1.2-5.4) 10/20/17 17:54 [place] # 0.8 K/mm3 (0.0-0.8) 10/20/17 17:54 Eos # 0.4 K/mm3 (0.0-0.4) 10/20/17 17:54 Baso # 0.1 K/mm3 (0.0-0.1) 10/20/17 17:54 Seg Neutrophils % 45.4 % (40.0-70.0) 10/20/17 17:54 Seg Neutrophils # 2.2 K/mm3 (1.8-7.7) 10/20/17 17:54 PT 14.4 Sec. (12.2-14.9) 10/21/17 03:14 INR 1.06 (0.87-1.13) 10/21/17 03:14 APTT 32.0 Sec. (24.2-36.6) 10/21/17 03:14 D-Dimer 326.44 ng/mlDDU (0-234) H 10/21/17 03:14 Sodium 140 mmol/L (137-145) 10/20/17 17:54 Potassium 4.4 mmol/L (3.6-5.0) 10/20/17 17:54 Chloride 100.1 mmol/L (98-107) 10/20/17 17:54 Carbon Dioxide 27 mmol/L (22-30) 10/20/17 17:54 Anion Gap 17 mmol/L 10/20/17 17:54 BUN 24 mg/dL (7-17) H 10/20/17 17:54 Creatinine 0.6 mg/dL (0.7-1.2) L 10/20/17 17:54 Estimated GFR > 60 ml/min 10/20/17 17:54 BUN/Creatinine Ratio 40 % 10/20/17 17:54 Glucose 83 mg/dL (65-100) 10/20/17 17:54 POC Glucose 130 (70-105) H 10/21/17 09:15 Calcium 9.8 mg/dL (8.4-10.2) 10/20/17 17:54 Troponin T < 0.010 ng/mL (0.00-0.029) 10/21/17 03:14 NT-Pro-B Natriuret Pep 207.5 pg/mL (0-900) 10/21/17 03:14 - Imaging and Cardiology EKG: report reviewed Chest x-ray: report reviewed (peribronchial thickening with mild i bilateral basal infiltrates without focal consolidation or pleural effusions previous kyphoplasty) CT scan - chest: report reviewed (CTA no evidence of pulmonary embolism or aortic dissection. Mild interstitial prominence.) Assessment and Plan Advance Directives: Yes (full code) VTE prophylaxis?: Chemical Plan of care discussed with patient/family: Yes - Patient Problems (1) COPD exacerbation Current Visit: No Status: Acute Plan to address problem: patient initiated on IV Solu-Medrol duonebs and IV antibiotics (2) Bilateral pneumonia Current Visit: Yes Status: Acute Qualifiers: Lung location: unspecified part of lung Plan to address problem: patient on antibiotics (3) Insulin dependent diabetes mellitus Current Visit: Yes Status: Chronic Plan to address problem: A1c under good control. Continue insulin.andcoverage (4) Hypertension Current Visit: Yes Status: Chronic Qualifiers: Hypertension type: essential hypertension Qualified Code(s): I10 - Essential (primary) hypertension Plan to address problem: continue antihypertensives (5) Coronary artery disease Current Visit: Yes Status: Chronic Qualifiers: Coronary Disease-Associated Artery/Lesion type: [place] artery [place] vs. transplanted heart: [place] heart Plan to address problem: continue Plavix (6) Hx of gastroesophageal reflux (GERD) Current Visit: Yes Status: Chronic Plan to address problem: continue ranitidine (7) DVT prophylaxis Current Visit: No Status: Acute Plan to address problem: on Lovenox
[2017-10-21] MEDS ORDERED: DULCOLAX PR PRN (09:55)
[2017-10-21] MEDS ORDERED: ZOFRAN IV PRN (09:55)
[2017-10-21] MEDS ORDERED: PERCOCET 5/325 PO PRN (09:55)
[2017-10-21] MEDS ORDERED: MORPHINE IV PRN (09:55)
[2017-10-21] MEDS ORDERED: MILK OF MAGNESIA PO PRN (09:55)
[2017-10-21] MEDS ORDERED: TYLENOL PO PRN (09:55)
[2017-10-21] MEDS ORDERED: DUONEB *Not for PRN Use IH (09:59)
[2017-10-21] MEDS ORDERED: NACL 0.45% 1000 ML 1,000 ML IV SCH (10:00)
[2017-10-21] MEDS ORDERED: LOVENOX SUB-Q ONE (11:37)
[2017-10-21] MEDS ORDERED: LEVAQUIN 750MG/150ML 750 MG/150 ML BAG IV ONE (11:38)
[2017-10-21] MEDS: DUONEB *Not for PRN Use IH SCH ×3 (11:42→21:20)
[2017-10-21] MEDS ORDERED: PROVENTIL IH PRN (11:46)
[2017-10-21] MEDS: LEVAQUIN 750MG/150ML 750 MG/150 ML BAG IV SCH (11:48)
[2017-10-21] MEDS: LOVENOX SUB-Q SCH (11:48)
--- NOTE | 2017-10-21 13:14 | Event Note ---
Date: 10/21/17 Patient was seen and examined. On history taking and evaluation, patient is known to Dr. Manuel"s pulmonary practice. Kaleb notified, will follow up on the patient
[2017-10-21] MEDS ORDERED: LASIX IV ONE (14:13)
--- NOTE | 2017-10-21 14:18 | Consultation ---
History of Present Illness Consult date: 10/21/17 Requesting physician: DOMINGA MIXON Reason for consult: dyspnea History of present illness: 77 y/o, obese female with known asthma, followed by Dr. Coyne admitted with worsening shortness of breath. This appears to be chronic in nature and Dr. Coyne is in the process of working this up. He had ordered a V/Q scan but a CTA was done here which was negative for PE. She does have some GGO's throughout. She does not have a cough. No fever. No recent long trips. To her knowledge, she has not been screened for sleep apnea as well. Past History Past Medical History: hypertension, other (obesity) Past Surgical History: No surgical history Social history: smoking (former smoker, quit in the ) Medications and Allergies Allergies Allergy/AdvReac Type Severity Reaction Status Date / Time avocado Allergy Unknown Verified 05/11/17 16:05 peanut Allergy Itching Verified 05/11/17 16:05 soybean Allergy Unknown Verified 05/11/17 16:05 KETCHUP Allergy Itching Uncoded 05/11/17 16:05 Home Medications Medication Instructions Recorded Confirmed Last Taken Type Alendronate Sodium [Fosamax] 70 mg PO QWEEK #4 tablet 02/22/16 10/21/17 1 Day Ago Rx ~04/05/16 70 Clopidogrel [Plavix] 75 mg PO QDAY #30 tablet 02/22/16 10/21/17 10/20/17 Rx Montelukast [Singulair] 10 mg PO QPM #30 tablet 02/22/16 10/21/17 10/20/17 Rx Bumetanide [Bumex 1 mg tab] 0.5 mg PO QDAY 06/10/17 10/21/17 10/20/17 History Fluticasone/Vilanterol [Breo 1 puff PO QDAY 06/10/17 10/21/17 Unknown History Ellipta 100-25 Mcg INH] Insulin NPH/Regular [NovoLIN 70/30] 10 units SC QPM 06/10/17 10/21/17 10/20/17 History Insulin NPH/Regular [NovoLIN 70/30] 15 units SC QAM 06/10/17 10/21/17 10/20/17 History Lovastatin Tab [Mevacor] 20 mg PO QHS 06/10/17 10/21/17 10/20/17 History Ranitidine HCl [Zantac 150 MG TAB] 150 mg PO BID 06/10/17 10/21/17 10/20/17 History amLODIPine [Norvasc] 5 mg PO QDAY 06/10/17 10/21/17 10/20/17 History glipiZIDE [Glucotrol] 5 mg PO QDAY 06/10/17 10/21/17 10/20/17 History prednisoLONE 1% SOD PHOSP(NF) 1 drop OS QDAY 06/10/17 10/21/17 10/20/17 History [Prednisol (Nf)] traZODone [Desyrel] 50 mg PO QHS 06/10/17 10/21/17 10/19/17 History ALBUTEROL Inhaler [Proair] 2 puff IH QID PRN 10/21/17 10/21/17 Unknown History Albuterol Sulfate [Albuterol 0.63% 0.083 mg IH Q4HR PRN 10/21/17 10/21/17 Unknown History NEBS] Docusate Sodium [Colace] 100 mg PO BID PRN 10/21/17 10/21/17 Unknown History Ferrous Sulfate [Feosol] 325 mg PO BID 10/21/17 10/21/17 10/20/17 History Fluticasone/Vilanterol [Breo 1 each IH Q4HR PRN 10/21/17 10/21/17 Unknown History Ellipta 200-25 Mcg INH] Losartan Potassium 100 mg PO DAILY 10/21/17 10/21/17 10/20/17 History Potassium Chloride [K-Dur] 10 meq PO QDAY 10/21/17 10/21/17 10/20/17 History cloNIDine [Catapres] 0.1 mg PO BID PRN 10/21/17 10/21/17 Unknown History hydrALAZINE [Apresoline TAB] 100 mg PO BID 10/21/17 10/21/17 10/20/17 History Active Meds: Active Medications Acetaminophen (Tylenol) 650 mg PO Q4H PRN PRN Reason: Pain MILD(1-3)/Fever >100.5/[place] Albuterol (Proventil) 2.5 mg IH Q4HRT PRN PRN Reason: Shortness Of Breath Albuterol/Ipratropium (Duoneb *Not For Prn Use*) 1 ampul IH Q6HRT [facility] Last Admin: 10/21/17 13:48 Dose: 1 ampul Bisacodyl (Dulcolax) 10 mg HI QDAY PRN PRN Reason: Constipation unrelieved by MOM Enoxaparin Sodium (Lovenox) 40 mg SUB-Q QDAY [facility] Last Admin: 10/21/17 11:48 Dose: 40 mg Furosemide (Lasix) 40 mg IV ONCE ONE Stop: 10/21/17 14:14 Levofloxacin/Dextrose (Levaquin 750mg/150ml) 750 mg in 150 mls @ 100 mls/hr IV Q24HR [facility] PRN Reason: Protocol Last Admin: 10/21/17 11:48 Dose: 100 mls/hr Magnesium Hydroxide (Milk Of Magnesia) 30 ml PO Q4H PRN PRN Reason: Constipation Methylprednisolone Sodium Succinate (Solu-Medrol) 60 mg IV Q8HR [facility] Last Admin: 10/21/17 11:48 Dose: 60 mg Morphine Sulfate (Morphine) 2 mg IV Q4H PRN PRN Reason: Pain, Moderate (4-6) Ondansetron HCl (Zofran) 4 mg IV Q8H PRN PRN Reason: N/V unrelieved by Reglan Oxycodone/Acetaminophen (Percocet 5/325) 1 tab PO Q6H PRN PRN Reason: Pain, Moderate (4-6) Review of Systems All systems: negative Physical Examination Vital signs: Vital Signs Temp Pulse Resp BP Pulse Ox 98.3 F 82 26 H 182/66 99 10/20/17 16:52 10/20/17 16:52 10/20/17 16:52 10/20/17 16:52 10/20/17 16:52 General appearance: no acute distress, alert Eyes: non-icteric ENT: oropharynx moist Neck: supple, no lymphadenopathy Effort: normal Ascultation: Bilateral: diminished breath sounds Percussion: Bilateral: not dull Tactile fremitus: Bilateral: normal Cardiovascular: regular rate and rhythm Gastrointestinal: normoactive bowel sounds, soft, other (obese) Extremities: edema (but nonpitting) Musculoskeletal: no deformities normal mental status, non-focal exam Results - Laboratory Findings CBC and BMP: 10/20/17 17:54 10/20/17 17:54 PT/INR, D-dimer PT 14.4 Sec. (12.2-14.9) 10/21/17 03:14 INR 1.06 (0.87-1.13) 10/21/17 03:14 D-Dimer 326.44 ng/mlDDU (0-234) H 10/21/17 03:14 Abnormal lab findings: Abnormal Labs 10/20/17 10/20/17 10/21/17 17:54 17:54 03:14 MCV 78 L MCH 26 L RDW 16.7 H [place] % (Auto) 15.7 H Eos % (Auto) 8.6 H D-Dimer 326.44 H BUN 24 H Creatinine 0.6 L POC Glucose 10/21/17 10/21/17 09:15 13:18 MCV MCH RDW [place] % (Auto) Eos % (Auto) D-Dimer BUN Creatinine POC Glucose 130 H 203 H - Diagnostic Findings CT scan - chest: image reviewed Assessment and Plan 77 y/o female with known asthma and worsening dyspnea on exertion. 1. Please check 2D echo to screen for pulmonary hypertension 2. Will give a one time dose of lasix today despite normal BNP 3. Needs better BP control, could have an element of diastolic dysfunction 4. Will add pulmicort and brovana 5. Stop IVF's
[2017-10-21] MEDS: NOVOLOG SUB-Q SCH ×2 (18:38→21:49)
[2017-10-22] MEDS: DUONEB *Not for PRN Use IH SCH ×4 (02:11→21:46)
[2017-10-22] MEDS ORDERED: APRESOLINE IV PRN (04:44)
[2017-10-22] MEDS ORDERED: CATAPRES PO PRN (05:39)
[2017-10-22] MEDS ORDERED: COLACE PO PRN (05:39)
[2017-10-22] MEDS ORDERED: PROAIR IH PRN (05:39)
[2017-10-22] MEDS ORDERED: NON-FORMULARY (Fluticasone/Vilanterol [Breo Ellipta 200-25 Mcg Inh] 1 EACH) IH PRN (05:39)
[2017-10-22] MEDS: PULMICORT IH SCH ×2 (07:39→21:45)
[2017-10-22] MEDS: BROVANA NEBU IH SCH ×2 (07:39→21:51)
[2017-10-22 08:03] LABS: Basophils % (Auto) 0.1 % (0.0-1.8); Hematocrit 35.3 % (30.3-42.9); Lymphocytes # (Auto) 0.5 K/mm3 (1.2-5.4); Lymphocytes % (Auto) 9.5 % (13.4-35.0); Mean Corpuscular HGB Conc 34 % (30-34); Mean Corpuscular Hemoglobin 27 pg (28-32); Mean Corpuscular Volume 78 fl (79-97); Monocytes # (Auto) 0.1 K/mm3 (0.0-0.8); Monocytes % (Auto) 1.9 % (0.0-7.3); Platelet Count 148 K/mm3 (140-440); Red Cell Distribution Width 17.1 % (13.2-15.2)
[2017-10-22 08:23] LABS: Alanine Aminotransferase 19 units/L (7-56); Albumin 3.7 g/dL (3.9-5); BUN/Creatinine Ratio 30; Blood Urea Nitrogen 15 mg/dL (7-17); Calcium 9.6 mg/dL (8.4-10.2); Hemolysis Index 5
[2017-10-22] MEDS: NOVOLOG SUB-Q SCH ×4 (08:47→23:42)
[2017-10-22] MEDS: GLUCOTROL PO SCH (08:51)
[2017-10-22] MEDS ORDERED: FLUTICASONE PO SCH (10:00)
[2017-10-22] MEDS ORDERED: VILANTEROL PO SCH (10:00)
[2017-10-22] MEDS ORDERED: [UNRECOGNIZED DRUG - OTHER] OS SCH (10:00)
[2017-10-22] MEDS ORDERED: NON-FORMULARY (Ranitidine Hcl [Zantac 150 Mg Tab] 150 MG) PO SCH (10:00)
[2017-10-22] MEDS ORDERED: APRESOLINE PO SCH (10:00)
[2017-10-22] MEDS ORDERED: NON-FORMULARY (Losartan Potassium [Losartan Potassium] 100 MG) PO SCH (10:00)
[2017-10-22] MEDS ORDERED: PREDNISOLONE 1% OS SCH (10:00)
--- NOTE | 2017-10-22 10:07 | Progress Note ---
Assessment and Plan 77 y/o female with known asthma and worsening dyspnea on exertion. 1. Please check 2D echo to screen for pulmonary hypertension 2. No lasix today. 3. Needs better BP control, could have an element of diastolic dysfunction 4. Continue pulmicort and brovana Subjective Date of service: 10/22/17 Interval history: Echo not done. Received lasix. No I/O documented Objective Vital Signs - 12hr 10/21/17 10/22/17 10/22/17 23:58 04:55 06:18 Temperature 98.9 F Pulse Rate 86 99 H Pulse Rate [ Bilateral Throughout] Respiratory 19 Rate Respiratory Rate [Bilateral Throughout] Blood Pressure 210/73 214/98 200/77 O2 Sat by Pulse 98 Oximetry 10/22/17 10/22/17 07:39 07:55 Temperature Pulse Rate Pulse Rate [ 75 78 Bilateral Throughout] Respiratory Rate Respiratory 16 16 Rate [Bilateral Throughout] Blood Pressure O2 Sat by Pulse Oximetry Constitutional: no acute distress, alert Eyes: non-icteric ENT: oropharynx moist Neck: supple, no lymphadenopathy Effort: normal Ascultation: Bilateral: diminished breath sounds Percussion: Bilateral: not dull Tactile fremitus: Bilateral: normal Cardiovascular: regular rate and rhythm Gastrointestinal: normoactive bowel sounds, soft, other (obese) Extremities: edema (but nonpitting) Neurologic: normal mental status, non-focal exam CBC and BMP: 10/22/17 07:12 10/22/17 07:12 ABG, PT/INR, D-dimer: PT/INR, D-dimer PT 14.4 Sec. (12.2-14.9) 10/21/17 03:14 INR 1.06 (0.87-1.13) 10/21/17 03:14 D-Dimer 326.44 ng/mlDDU (0-234) H 10/21/17 03:14 Abnormal lab findings: Abnormal Labs 10/20/17 10/20/17 10/21/17 17:54 17:54 03:14 MCV 78 L MCH 26 L RDW 16.7 H Lymph % (Auto) [place] % (Auto) 15.7 H Eos % (Auto) 8.6 H Lymph # Seg Neutrophils % D-Dimer 326.44 H BUN 24 H Creatinine 0.6 L Glucose POC Glucose Albumin 10/21/17 10/21/17 10/21/17 09:15 13:18 17:44 MCV MCH RDW Lymph % (Auto) [place] % (Auto) Eos % (Auto) Lymph # Seg Neutrophils % D-Dimer BUN Creatinine Glucose POC Glucose 130 H 203 H 379 H Albumin 10/21/17 10/22/17 10/22/17 21:27 07:12 07:12 MCV 78 L MCH 27 L RDW 17.1 H Lymph % (Auto) 9.5 L [place] % (Auto) Eos % (Auto) Lymph # 0.5 L Seg Neutrophils % 88.5 H D-Dimer BUN Creatinine 0.5 L Glucose 230 H POC Glucose 155 H Albumin 3.7 L 10/22/17 07:35 MCV MCH RDW Lymph % (Auto) [place] % (Auto) Eos % (Auto) Lymph # Seg Neutrophils % D-Dimer BUN Creatinine Glucose POC Glucose 249 H Albumin
[2017-10-22] MEDS: COZAAR PO SCH (10:50)
[2017-10-22] MEDS: PLAVIX PO SCH (10:50)
[2017-10-22] MEDS: NORVASC PO SCH (10:50)
[2017-10-22] MEDS: K-DUR PO SCH (10:50)
[2017-10-22] MEDS: BUMEX PO SCH (10:51)
[2017-10-22] MEDS: LOVENOX SUB-Q SCH (10:51)
[2017-10-22] MEDS: LEVAQUIN 750MG/150ML 750 MG/150 ML BAG IV SCH (10:51)
[2017-10-22] MEDS: PEPCID PO SCH ×2 (10:54→22:33)
--- NOTE | 2017-10-22 15:43 | Progress Note ---
Assessment and Plan Acute asthma exacerbation: Pulmonary consult note reviewed and appreciated Continue nebulizer treatments with DuoNeb, long-acting beta-adrenergic's and inhalation steroids Await echo result Hypertension: Moderately high, increase hydralazine to 3 times daily. Continue all other medications Type 2 diabetes: Continue sliding-scale coverage and glipizide Coronary artery disease: Continue Plavix Subjective Date of service: 10/22/17 Interval history: Patient is awake and alert Not in any acute distress Feels short of breath Denies chest pain Denies any fever or chills Has dry cough Objective - Constitutional Vitals: Vital Signs - 12hr 10/22/17 10/22/17 10/22/17 04:39 04:55 04:57 Temperature Pulse Rate 88 99 H Pulse Rate [ Bilateral Throughout] Respiratory Rate Respiratory Rate [Bilateral Throughout] Blood Pressure 214/98 214/98 201/94 O2 Sat by Pulse 92 Oximetry 10/22/17 10/22/17 10/22/17 05:29 06:14 06:18 Temperature Pulse Rate Pulse Rate [ Bilateral Throughout] Respiratory Rate Respiratory Rate [Bilateral Throughout] Blood Pressure 202/83 200/77 200/77 O2 Sat by Pulse Oximetry 10/22/17 10/22/17 10/22/17 07:39 07:55 09:09 Temperature 98.6 F Pulse Rate 87 Pulse Rate [ 75 78 Bilateral Throughout] Respiratory 20 Rate Respiratory 16 16 Rate [Bilateral Throughout] Blood Pressure 149/57 O2 Sat by Pulse 91 Oximetry 10/22/17 10:50 Temperature Pulse Rate Pulse Rate [ Bilateral Throughout] Respiratory Rate Respiratory Rate [Bilateral Throughout] Blood Pressure 163/65 O2 Sat by Pulse Oximetry General appearance: Present: no acute distress - EENT Eyes: PERRL, EOM intact ENT: hearing intact, clear oral mucosa - Neck Neck: supple, normal ROM, no masses or JVD - Respiratory Respiratory effort: normal Respiratory: bilateral: diminished, rhonchi (scattered bilateral rhonchi) - Cardiovascular Rhythm: regular Heart Sounds: Present: S1 & S2 Extremities: No edema - Gastrointestinal General gastrointestinal: Present: soft, non-tender. Absent: hepatomegaly, splenomegaly - Integumentary Integumentary: clear - Neurologic Neurologic: no focal deficits - Psychiatric Psychiatric: appropriate mood/affect - Labs CBC & Chem 7: 10/22/17 07:12 10/22/17 07:12 Labs: Abnormal lab results 10/21/17 10/21/17 10/22/17 Range/Units 17:44 21:27 07:12 MCV 78 L (79-97) fl MCH 27 L (28-32) pg RDW 17.1 H (13.2-15.2) % Lymph % (Auto) 9.5 L (13.4-35.0) % Lymph # 0.5 L (1.2-5.4) K/mm3 Seg Neutrophils % 88.5 H (40.0-70.0) % Creatinine (0.7-1.2) mg/dL Glucose (65-100) mg/dL POC Glucose 379 H 155 H (70-105) Albumin (3.9-5) g/dL 10/22/17 10/22/17 10/22/17 Range/Units 07:12 07:35 12:32 MCV (79-97) fl MCH (28-32) pg RDW (13.2-15.2) % Lymph % (Auto) (13.4-35.0) % Lymph # (1.2-5.4) K/mm3 Seg Neutrophils % (40.0-70.0) % Creatinine 0.5 L (0.7-1.2) mg/dL Glucose 230 H (65-100) mg/dL POC Glucose 249 H 214 H (70-105) Albumin 3.7 L (3.9-5) g/dL
[2017-10-22] MEDS: SINGULAIR PO SCH (17:21)
[2017-10-22] MEDS: DESYREL PO SCH (22:33)
[2017-10-22] MEDS: APRESOLINE PO SCH (22:34)
[2017-10-23] MEDS: DUONEB *Not for PRN Use IH SCH ×4 (02:42→21:02)
[2017-10-23] MEDS: NOVOLOG SUB-Q SCH ×4 (07:52→23:02)
[2017-10-23] MEDS: BROVANA NEBU IH SCH ×2 (08:16→20:39)
[2017-10-23] MEDS: PULMICORT IH SCH ×2 (08:16→20:39)
[2017-10-23] MEDS: APRESOLINE PO SCH ×3 (08:29→21:08)
[2017-10-23] MEDS: GLUCOTROL PO SCH (08:30)
[2017-10-23] MEDS: LEVAQUIN 750MG/150ML 750 MG/150 ML BAG IV SCH ×2 (09:56→13:32)
[2017-10-23] MEDS: K-DUR PO SCH (09:57)
[2017-10-23] MEDS: COZAAR PO SCH (09:57)
[2017-10-23] MEDS: BUMEX PO SCH (09:57)
[2017-10-23] MEDS: LOVENOX SUB-Q SCH (09:58)
[2017-10-23] MEDS: NORVASC PO SCH (09:58)
[2017-10-23] MEDS: PLAVIX PO SCH (09:58)
[2017-10-23] MEDS: PEPCID PO SCH ×2 (09:58→21:10)
[2017-10-23] MEDS ORDERED: PRED FORTE 1% OS SCH (10:00)
[2017-10-23 10:04] LABS: Hematocrit 38.6 % (30.3-42.9); Hemoglobin 12.7 gm/dl (10.1-14.3); Mean Corpuscular HGB Conc 33 % (30-34); Mean Corpuscular Hemoglobin 26 pg (28-32); Mean Corpuscular Volume 80 fl (79-97); Platelet Count 161 K/mm3 (140-440); Red Blood Count 4.82 M/mm3 (3.65-5.03); Red Cell Distribution Width 17.3 % (13.2-15.2)
[2017-10-23 10:26] LABS: BUN/Creatinine Ratio 42; Blood Urea Nitrogen 21 mg/dL (7-17); Calcium 9.8 mg/dL (8.4-10.2); Hemolysis Index 18
--- NOTE | 2017-10-23 12:17 | Progress Note ---
Assessment and Plan Acute asthma exacerbation: Pulmonary consult note reviewed and appreciated Continue nebulizer treatments with DuoNeb, long-acting beta-adrenergic's and inhalation steroids Await echo result Hypertension: Moderately high, add clonidine 0.1 every 12 hours Continue all other medications Type 2 diabetes: Continue sliding-scale coverage and glipizide Coronary artery disease: Continue Plavix Subjective Date of service: 10/23/17 Interval history: Patient is alert and oriented Not in any acute distress Pulmonary consult reviewed and appreciated Complains of shortness of breath at rest as well as with minimal exertion Denies cough or chest pain She is requesting to see case reviewer Objective - Constitutional Vitals: Vital Signs - 12hr 10/23/17 10/23/17 10/23/17 07:32 08:16 08:47 Temperature 97.6 F Pulse Rate 79 Pulse Rate [ 80 85 Bilateral Throughout] Respiratory 20 Rate Respiratory 19 18 Rate [Bilateral Throughout] Blood Pressure 188/78 O2 Sat by Pulse 99 Oximetry 10/23/17 10/23/17 09:57 09:58 Temperature Pulse Rate 85 85 Pulse Rate [ Bilateral Throughout] Respiratory Rate Respiratory Rate [Bilateral Throughout] Blood Pressure 188/78 188/78 O2 Sat by Pulse Oximetry General appearance: Present: no acute distress - EENT Eyes: PERRL, EOM intact ENT: hearing intact, clear oral mucosa - Neck Neck: supple, normal ROM - Respiratory Respiratory effort: normal Respiratory: bilateral: CTA, diminished - Cardiovascular Rhythm: regular Heart Sounds: Present: S1 & S2 Extremities: No edema - Gastrointestinal General gastrointestinal: Present: soft, non-tender - Integumentary Integumentary: clear - Musculoskeletal Musculoskeletal: strength equal bilaterally - Neurologic Neurologic: no focal deficits - Labs CBC & Chem 7: 10/23/17 09:31 10/23/17 09:31 Labs: Abnormal lab results 10/22/17 10/22/17 10/22/17 Range/Units 10:50 12:32 17:18 MCH (28-32) pg RDW (13.2-15.2) % BUN (7-17) mg/dL Creatinine (0.7-1.2) mg/dL Glucose (65-100) mg/dL POC Glucose 276 H 214 H 165 H (70-105) 10/22/17 10/23/17 10/23/17 Range/Units 22:58 05:31 09:31 MCH 26 L (28-32) pg RDW 17.3 H (13.2-15.2) % BUN (7-17) mg/dL Creatinine (0.7-1.2) mg/dL Glucose (65-100) mg/dL POC Glucose 192 H 133 H (70-105) 18 10/23/17 Range/Units 09:31 11:22 MCH (28-32) pg RDW (13.2-15.2) % BUN 21 H (7-17) mg/dL Creatinine 0.5 L (0.7-1.2) mg/dL Glucose 216 H (65-100) mg/dL POC Glucose 234 H (70-105)
[2017-10-23] MEDS: LEVAQUIN PO SCH (13:29)
[2017-10-23] MEDS: CATAPRES PO SCH ×2 (14:15→21:08)
--- NOTE | 2017-10-23 14:33 | Progress Note ---
Assessment and Plan 77 y/o female with known asthma and worsening dyspnea on exertion. 1. Echo shows mild pulmonary hypertension. Would continue low dose diuretic therapy 2. Per patient, none of the inhalers work, she has well care. Would ask CM to see what they cover and what she has not been on and try this. 3. Continue abx. Would treat for a total of 5 days 4. OOB to chair and ambulation 5. Hopeful discharge in the next 24-48 hours. Subjective Date of service: 10/23/17 Interval history: No acute events. Still says she feels short of breath but appears very comfortable on room air. Objective Vital Signs - 12hr 10/23/17 10/23/17 10/23/17 07:32 08:16 08:47 Temperature 97.6 F Pulse Rate 79 Pulse Rate [ 80 85 Bilateral Throughout] Respiratory 20 Rate Respiratory 19 18 Rate [Bilateral Throughout] Blood Pressure 188/78 O2 Sat by Pulse 99 Oximetry 10/23/17 10/23/17 10/23/17 09:57 09:58 10:00 Temperature Pulse Rate 85 85 Pulse Rate [ Bilateral Throughout] Respiratory Rate Respiratory Rate [Bilateral Throughout] Blood Pressure 188/78 188/78 O2 Sat by Pulse 97 Oximetry Constitutional: no acute distress, alert Eyes: non-icteric ENT: oropharynx moist Neck: supple, no lymphadenopathy Effort: normal Ascultation: Bilateral: diminished breath sounds Percussion: Bilateral: not dull Tactile fremitus: Bilateral: normal Cardiovascular: regular rate and rhythm Gastrointestinal: normoactive bowel sounds, soft, other (obese) Extremities: edema (but nonpitting) Neurologic: normal mental status, non-focal exam CBC and BMP: 10/23/17 09:31 10/23/17 09:31 ABG, PT/INR, D-dimer: PT/INR, D-dimer PT 14.4 Sec. (12.2-14.9) 10/21/17 03:14 INR 1.06 (0.87-1.13) 10/21/17 03:14 D-Dimer 326.44 ng/mlDDU (0-234) H 10/21/17 03:14 Abnormal lab findings: Abnormal Labs 10/20/17 10/20/17 10/21/17 17:54 17:54 03:14 MCV 78 L MCH 26 L RDW 16.7 H Lymph % (Auto) Sharp % (Auto) 15.7 H Eos % (Auto) 8.6 H Lymph # Seg Neutrophils % D-Dimer 326.44 H BUN 24 H Creatinine 0.6 L Glucose POC Glucose Albumin 10/21/17 10/21/17 10/21/17 09:15 13:18 17:44 MCV MCH RDW Lymph % (Auto) Sharp % (Auto) Eos % (Auto) Lymph # Seg Neutrophils % D-Dimer BUN Creatinine Glucose POC Glucose 130 H 203 H 379 H Albumin 10/21/17 10/22/17 10/22/17 21:27 07:12 07:12 MCV 78 L MCH 27 L RDW 17.1 H Lymph % (Auto) 9.5 L Sharp % (Auto) Eos % (Auto) Lymph # 0.5 L Seg Neutrophils % 88.5 H D-Dimer BUN Creatinine 0.5 L Glucose 230 H POC Glucose 155 H Albumin 3.7 L 10/22/17 10/22/17 10/22/17 07:35 10:50 12:32 MCV MCH RDW Lymph % (Auto) Sharp % (Auto) Eos % (Auto) Lymph # Seg Neutrophils % D-Dimer BUN Creatinine Glucose POC Glucose 249 H 276 H 214 H Albumin 10/22/17 10/22/17 10/23/17 17:18 22:58 05:31 MCV MCH RDW Lymph % (Auto) Sharp % (Auto) Eos % (Auto) Lymph # Seg Neutrophils % D-Dimer BUN Creatinine Glucose POC Glucose 165 H 192 H 133 H Albumin 10/23/17 10/23/17 10/23/17 09:31 09:31 11:22 MCV MCH 26 L RDW 17.3 H Lymph % (Auto) Sharp % (Auto) Eos % (Auto) Lymph # Seg Neutrophils % D-Dimer BUN 21 H Creatinine 0.5 L Glucose 216 H POC Glucose 234 H Albumin
[2017-10-23] MEDS: SINGULAIR PO SCH (18:10)
[2017-10-23] MEDS: DESYREL PO SCH (21:07)
[2017-10-23] MEDS: FLONASE NS SCH (23:01)
[2017-10-24] MEDS: DUONEB *Not for PRN Use IH SCH ×2 (01:56→08:34)
[2017-10-24] MEDS ORDERED: PRED FORTE 1% OS SCH (06:00)
[2017-10-24] MEDS: PULMICORT IH SCH (08:34)
[2017-10-24] MEDS: BROVANA NEBU IH SCH (08:34)
[2017-10-24] MEDS: APRESOLINE PO SCH ×2 (08:42→13:25)
[2017-10-24] MEDS: NOVOLOG SUB-Q SCH ×2 (08:43→13:24)
[2017-10-24] MEDS: GLUCOTROL PO SCH (08:43)
[2017-10-24] MEDS: CATAPRES PO SCH (09:56)
[2017-10-24] MEDS: K-DUR PO SCH (09:57)
[2017-10-24] MEDS: NORVASC PO SCH (09:57)
[2017-10-24] MEDS: BUMEX PO SCH (09:57)
[2017-10-24] MEDS: LEVAQUIN PO SCH (09:57)
[2017-10-24] MEDS: PEPCID PO SCH (09:57)
[2017-10-24] MEDS: LOVENOX SUB-Q SCH (09:58)
[2017-10-24] MEDS: PLAVIX PO SCH (09:58)
[2017-10-24] MEDS: COZAAR PO SCH (09:58)
[2017-10-24] MEDS: FLONASE NS SCH (10:04)
--- NOTE | 2017-10-24 12:47 | Discharge Summary ---
Providers - Providers Date of Admission: 10/21/17 09:55 Date of discharge: 10/24/17 Attending physician: KITTY BURK 10/21/17 13:12 Consult to Physician [CONS] Routine Consulting Provider: HOWARD MANUEL Reason For Exam: excerbation COPD Place consult to:: Dr. Manuel Notified:: yes Phone number called:: [phone] Was contact made?: Yes If yes, spoke with:: Dr. Keller spoke with dr. Manuel Time called:: 13:00 Comment:: Pt. is Known to Dr. Manuel 10/23/17 12:17 Consult to Case Management [CONS] Routine Services Needed at Discharge: [employer] Supervisor Notified:: LEFT COPY FOR CM 10/23/17 19:15 Consult to Case Management [CONS] Routine Services Needed at Discharge: Home Health Services [employer] Supervisor Notified:: copy Primary care physician: GEMA BARROSO Hospitalization Condition: Stable Hospital course: Discharge diagnosis and management: Acute asthma exacerbation: Pulmonary consult note reviewed and appreciated Continue nebulizer treatments with DuoNeb, long-acting beta-adrenergic's and inhalation steroids Await echo result Hypertension: Moderately high, add clonidine 0.1 every 12 hours Continue all other medications Type 2 diabetes: Continue sliding-scale coverage and glipizide Coronary artery disease: Continue Plavix Disposition: DC- TO HOME OR SELFCARE Time spent for discharge: 32 minutes Core Measure Documentation - Palliative Care Palliative Care/ Comfort Measures: Not Applicable - Core Measures Any of the following diagnoses?: none Exam - Physical Exam Narrative exam: General appearance: Present: no acute distress - EENT Eyes: PERRL, EOM intact ENT: hearing intact, clear oral mucosa - Neck Neck: supple, normal ROM - Respiratory Respiratory effort: normal Respiratory: bilateral: CTA, diminished - Cardiovascular Rhythm: regular Heart Sounds: Present: S1 & S2 Extremities: No edema - Gastrointestinal General gastrointestinal: Present: soft, non-tender - Integumentary Integumentary: clear - Musculoskeletal Musculoskeletal: strength equal bilaterally - Neurologic Neurologic: no focal deficits - Constitutional Vitals: Temp Pulse Resp BP Pulse Ox 98.0 F 85 18 173/65 97 10/24/17 07:48 10/24/17 08:56 10/24/17 08:56 10/24/17 07:48 10/24/17 07:48 Plan Activity: advance as tolerated Weight Bearing Status: Weight Bear as Tolerated Diet: low fat, low salt Follow up with: GEMA BARROSO MD [Primary Care Provider] - 3-5 Days Prescriptions: Azithromycin [Zithromax] 250 mg PO DAILY #5 tablet predniSONE [Deltasone] 50 mg PO QDAY #5 tab
[2017-10-24 13:28] VITALS: BP 126/55
== END 2017-10-24 14:12 | disposition home health service (06) | DRG 190 ==
LOC: ED 16:37 → 3A 10-21 09:55
PROVIDERS: ADMIT Internal Medicine; ATTEND Internal Medicine
DX: J44.0 Chronic obstructive pulmonary disease with (acute) lower respiratory infection (principal); J18.9 Pneumonia, unspecified organism; J45.901 Unspecified asthma with (acute) exacerbation; J44.1 Chronic obstructive pulmonary disease with (acute) exacerbation; E11.8 Type 2 diabetes mellitus with unspecified complications; I25.10 Atherosclerotic heart disease of native coronary artery without angina pectoris; M19.90 Unspecified osteoarthritis, unspecified site; I50.9 Heart failure, unspecified; I11.0 Hypertensive heart disease with heart failure; K21.9 Gastro-esophageal reflux disease without esophagitis; Z86.711 Personal history of pulmonary embolism; Z86.718 Personal history of other venous thrombosis and embolism; Z87.442 Personal history of urinary calculi; Z90.710 Acquired absence of both cervix and uterus; Z79.899 Other long term (current) drug therapy; Z79.4 Long term (current) use of insulin; Z91.010 Allergy to peanuts
CPT/HCPCS: 36415; 71046; 71275; 80048; 80053; 82962; 83036; 83880; 84484; 85025; 85027; 85379; 85610; 85730; 93005; 93010; 93306; 94640; 96374; J0360; J1650; J1815; J1940; J1956; J2930; Q9967

== ENCOUNTER 2017-11-07 16:53 | Emergency (ER) | payer MEDICARE ==
--- NOTE | 2017-11-08 07:46 | Emergency Department Report ---
ED General Adult HPI - General Chief complaint: Eye Problems Stated complaint: EYE AND LEG PAIN Source: patient Mode of arrival: Ambulatory Limitations: No Limitations - History of Present Illness Initial comments: Mrs. Garcia is a 77-year-old female who presents with several chronic concerns. She is concerned about right eye pain which she has been present for more than one year. 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 She has had multiple interventions on both eyes. She has no vision in left eye. She has minimal vision in the right eye. Her most recent intervention was laser surgery December 2016. She is followed by research and development director Dr. Guerrero. Previously she has also seen a retina specialist. 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 She states that she has had eye pain in 1 year. She states when the lipoma changes sizes, the vision improves. She has mild lower leg swelling which is unchanged from normal. She does take a diuretic. She states that she has "oil" in her right eye as a result of the surgery. - Related Data Home Medications Medication Instructions Recorded Confirmed Last Taken Bumetanide [Bumex 1 mg tab] 0.5 mg PO QDAY 06/10/17 10/21/17 10/20/17 Fluticasone/Vilanterol [Breo 1 puff PO QDAY 06/10/17 10/21/17 Unknown Ellipta 100-25 Mcg INH] Insulin NPH/Regular [NovoLIN 70/30] 10 units SC QPM 06/10/17 10/21/17 10/20/17 Insulin NPH/Regular [NovoLIN 70/30] 15 units SC QAM 06/10/17 10/21/17 10/20/17 Lovastatin Tab [Mevacor] 20 mg PO QHS 06/10/17 10/21/17 10/20/17 Ranitidine HCl [Zantac 150 MG TAB] 150 mg PO BID 06/10/17 10/21/17 10/20/17 amLODIPine [Norvasc] 5 mg PO QDAY 06/10/17 10/21/17 10/20/17 glipiZIDE [Glucotrol] 5 mg PO QDAY 06/10/17 10/21/17 10/20/17 prednisoLONE 1% SOD PHOSP(NF) 1 drop OS BID 06/10/17 10/24/17 10/20/17 [Prednisol (Nf)] traZODone [Desyrel] 50 mg PO QHS 06/10/17 10/21/17 10/19/17 ALBUTEROL Inhaler [ProAir HFA 2 puff IH QID PRN 10/21/17 10/21/17 Unknown Inhaler] Albuterol Sulfate [Albuterol 0.63% 0.083 mg IH Q4HR PRN 10/21/17 10/21/17 Unknown NEBS] Docusate Sodium [Colace CAP] 100 mg PO BID PRN 10/21/17 10/21/17 Unknown Ferrous Sulfate [Feosol 325 MG tab] 325 mg PO BID 10/21/17 10/21/17 10/20/17 Fluticasone/Vilanterol [Breo 1 each IH Q4HR PRN 10/21/17 10/21/17 Unknown Ellipta 200-25 Mcg INH] Losartan Potassium 100 mg PO DAILY 10/21/17 10/21/17 10/20/17 Potassium Chloride [K-Dur] 10 meq PO QDAY 10/21/17 10/21/17 10/20/17 cloNIDine [Catapres] 0.1 mg PO BID PRN 10/21/17 10/21/17 Unknown hydrALAZINE [Apresoline TAB] 100 mg PO BID 10/21/17 10/21/17 10/20/17 Previous Rx's Medication Instructions Recorded Last Taken Type Alendronate Sodium [Fosamax] 70 mg PO QWEEK #4 tablet 02/22/16 1 Day Ago Rx ~04/05/16 70 Clopidogrel [Plavix] 75 mg PO QDAY #30 tablet 02/22/16 10/20/17 Rx Montelukast [Singulair] 10 mg PO QPM #30 tablet 02/22/16 10/20/17 Rx Azithromycin [Zithromax] 250 mg PO DAILY #5 tablet 10/24/17 Unknown Rx predniSONE [Deltasone] 50 mg PO QDAY #5 tab 10/24/17 Unknown Rx Allergies Allergy/AdvReac Type Severity Reaction Status Date / Time avocado Allergy Unknown Verified 11/07/17 16:55 peanut Allergy Itching Verified 11/07/17 16:55 soybean Allergy Unknown Verified 11/07/17 16:55 KETCHUP Allergy Itching Uncoded 05/11/17 16:05 ED Review of Systems ROS: Stated complaint: EYE AND LEG PAIN Other details as noted in HPI Comment: All other systems reviewed and negative Constitutional: denies: chills, fever, malaise Eyes: eye pain, vision change Respiratory: no symptoms reported Cardiovascular: denies: chest pain Psychiatric: denies: depression ED Past Medical Hx - Past Medical History Hx Hypertension: Yes Hx Heart Attack/AMI: No Hx Congestive Heart Failure: Yes (IN THE PAST , RESOLVED) Hx Diabetes: Yes Hx Deep Vein Thrombosis: Yes Hx Pulmonary Embolism: Yes Hx GERD: Yes Hx Arthritis: Yes Hx Kidney Stones: Yes Hx Asthma: Yes Hx COPD: Yes Hx Tuberculosis: No Hx HIV: No Additional medical history: Blood clots to bilateral legs, Legally blind - Surgical History Hx Coronary Stent: No Hx Pacemaker: No Hx Internal Defibrillator: No Additional Surgical History: fatty tumor from left shoulder removed. hysterectomy - Social History Smoking Status: Never Smoker Substance Use Type: None - Medications Home Medications: Home Medications Medication Instructions Recorded Confirmed Last Taken Type Alendronate Sodium [Fosamax] 70 mg PO QWEEK #4 tablet 02/22/16 10/21/17 1 Day Ago Rx ~04/05/16 70 Clopidogrel [Plavix] 75 mg PO QDAY #30 tablet 02/22/16 10/21/17 10/20/17 Rx Montelukast [Singulair] 10 mg PO QPM #30 tablet 02/22/16 10/21/17 10/20/17 Rx Bumetanide [Bumex 1 mg tab] 0.5 mg PO QDAY 06/10/17 10/21/17 10/20/17 History Fluticasone/Vilanterol [Breo 1 puff PO QDAY 06/10/17 10/21/17 Unknown History Ellipta 100-25 Mcg INH] Insulin NPH/Regular [NovoLIN 70/30] 10 units SC QPM 06/10/17 10/21/17 10/20/17 History Insulin NPH/Regular [NovoLIN 70/30] 15 units SC QAM 06/10/17 10/21/17 10/20/17 History Lovastatin Tab [Mevacor] 20 mg PO QHS 0810/21/17 10/20/17 History Ranitidine HCl [Zantac 150 MG TAB] 150 mg PO BID 06/10/17 10/21/17 10/20/17 History amLODIPine [Norvasc] 5 mg PO QDAY 06/10/17 10/21/17 10/20/17 History glipiZIDE [Glucotrol] 5 mg PO QDAY 06/10/17 10/21/17 10/20/17 History prednisoLONE 1% SOD PHOSP(NF) 1 drop OS BID 06/10/17 10/24/17 10/20/17 History [Prednisol (Nf)] traZODone [Desyrel] 50 mg PO QHS 06/10/17 10/21/17 10/19/17 History ALBUTEROL Inhaler [ProAir HFA 2 puff IH QID PRN 10/21/17 10/21/17 Unknown History Inhaler] Albuterol Sulfate [Albuterol 0.63% 0.083 mg IH Q4HR PRN 10/21/17 10/21/17 Unknown History NEBS] Docusate Sodium [Colace CAP] 100 mg PO BID PRN 10/21/17 10/21/17 Unknown History Ferrous Sulfate [Feosol 325 MG tab] 325 mg PO BID 10/21/17 10/21/17 10/20/17 History Fluticasone/Vilanterol [Breo 1 each IH Q4HR PRN 10/21/17 10/21/17 Unknown History Ellipta 200-25 Mcg INH] Losartan Potassium 100 mg PO DAILY 10/21/17 10/21/17 10/20/17 History Potassium Chloride [K-Dur] 10 meq PO QDAY 10/21/17 10/21/17 10/20/17 History cloNIDine [Catapres] 0.1 mg PO BID PRN 10/21/17 10/21/17 Unknown History hydrALAZINE [Apresoline TAB] 100 mg PO BID 10/21/17 10/21/17 10/20/17 History Azithromycin [Zithromax] 250 mg PO DAILY #5 tablet 10/24/17 Unknown Rx predniSONE [Deltasone] 50 mg PO QDAY #5 tab 10/24/17 Unknown Rx ED Physical Exam - General Limitations: No Limitations General appearance: alert, in no apparent distress - Head Head exam: Present: atraumatic, normocephalic - Eye Eye exam: Present: normal appearance Pupils: Present: unequal - Expanded Eye Exam Expanded Eyelids: Normal Inspection: Right (n) Pupils: Regular, Round: Right (round sluggish) Sclera/Conjunctival: Injection: Bilateral (slight injection both eyes) - ENT ENT exam: Present: mucous membranes moist - Neck Neck exam: Present: normal inspection (left posterior neck just distal to hair line mobile soft 3 cm x 5 cm mass, soft without tenderness) - Respiratory Respiratory exam: Present: normal lung sounds bilaterally. Absent: respiratory distress - Cardiovascular Cardiovascular Exam: Present: regular rate, normal rhythm. Absent: systolic murmur, diastolic murmur, rubs, gallop - GI/Abdominal GI/Abdominal exam: Present: soft, normal bowel sounds - Extremities Exam Extremities exam: Present: normal capillary refill, pedal edema. Absent: normal inspection, tenderness, calf tenderness - Back Exam Back exam: Present: normal inspection - Neurological Exam Neurological exam: Present: alert, oriented X3 - Psychiatric Psychiatric exam: Present: normal affect, normal mood. Absent: depressed, agitated, anxious, flat affect - Skin Skin exam: Present: warm, dry, intact, normal color. Absent: rash ED Course Vital Signs 11/07/17 11/08/17 16:55 03:24 Temperature 97.8 F 98.7 F Pulse Rate 81 75 Respiratory 20 20 Rate Blood Pressure 188/60 213/77 O2 Sat by Pulse 98 98 Oximetry ED Medical Decision Making - Medical Decision Making Mrs. Garcia presents with several chronic concerns. According to her report , her vision has not changed from baseline. She just wants a definitive answer regarding the fluctuating symptoms over the past year. She exclaims, "Can you do a scan or something? No one believes me." She is convinced that the lipoma is associated with her right eye vision. I have given her reassurance. I suggested follow up with her PCP Dr. Navarro and research and development director Dr. Guerrero. No evidence of acute issues at this present time. I do not suspect neurological process or acute eye emergency presently. She denies depression. I do not detect signs of acute psychosis. Critical care attestation.: If time is entered above; I have spent that time in minutes in the direct care of this critically ill patient, excluding procedure time. ED Disposition Clinical Impression: Eye problems, Lipoma Disposition: DC-01 TO HOME OR SELFCARE Is pt being admited?: No Does the pt Need Aspirin: No Condition: Good Time of Disposition: 07:53
--- NOTE | 2017-11-08 08:06 | Emergency Department Report ---
ED Eye Problem HPI - General Chief complaint: Eye Problems Stated complaint: EYE AND LEG PAIN Source: patient Mode of arrival: Ambulatory Limitations: No Limitations - Related Data Home Medications Medication Instructions Recorded Confirmed Last Taken Bumetanide [Bumex 1 mg tab] 0.5 mg PO QDAY 06/10/17 10/21/17 10/20/17 Fluticasone/Vilanterol [Breo 1 puff PO QDAY 06/10/17 10/21/17 Unknown Ellipta 100-25 Mcg INH] Insulin NPH/Regular [NovoLIN 70/30] 10 units SC QPM 06/10/17 10/21/17 10/20/17 Insulin NPH/Regular [NovoLIN 70/30] 15 units SC QAM 06/10/17 10/21/17 10/20/17 Lovastatin Tab [Mevacor] 20 mg PO QHS 06/10/17 10/21/17 10/20/17 Ranitidine HCl [Zantac 150 MG TAB] 150 mg PO BID 06/10/17 10/21/17 10/20/17 amLODIPine [Norvasc] 5 mg PO QDAY 06/10/17 10/21/17 10/20/17 glipiZIDE [Glucotrol] 5 mg PO QDAY 06/10/17 10/21/17 10/20/17 prednisoLONE 1% SOD PHOSP(NF) 1 drop OS BID 06/10/17 10/24/17 10/20/17 [Prednisol (Nf)] traZODone [Desyrel] 50 mg PO QHS 06/10/17 10/21/17 10/19/17 ALBUTEROL Inhaler [ProAir HFA 2 puff IH QID PRN 10/21/17 10/21/17 Unknown Inhaler] Albuterol Sulfate [Albuterol 0.63% 0.083 mg IH Q4HR PRN 10/21/17 10/21/17 Unknown NEBS] Docusate Sodium [Colace CAP] 100 mg PO BID PRN 10/21/17 10/21/17 Unknown Ferrous Sulfate [Feosol 325 MG tab] 325 mg PO BID 10/21/17 10/21/17 10/20/17 Fluticasone/Vilanterol [Breo 1 each IH Q4HR PRN 10/21/17 10/21/17 Unknown Ellipta 200-25 Mcg INH] Losartan Potassium 100 mg PO DAILY 10/21/17 10/21/17 10/20/17 Potassium Chloride [K-Dur] 10 meq PO QDAY 10/21/17 10/21/17 10/20/17 cloNIDine [Catapres] 0.1 mg PO BID PRN 10/21/17 10/21/17 Unknown hydrALAZINE [Apresoline TAB] 100 mg PO BID 10/21/17 10/21/17 10/20/17 Previous Rx's Medication Instructions Recorded Last Taken Type Alendronate Sodium [Fosamax] 70 mg PO QWEEK #4 tablet 02/22/16 1 Day Ago Rx ~04/05/16 70 Clopidogrel [Plavix] 75 mg PO QDAY #30 tablet 02/22/16 10/20/17 Rx Montelukast [Singulair] 10 mg PO QPM #30 tablet 02/22/16 10/20/17 Rx Azithromycin [Zithromax] 250 mg PO DAILY #5 tablet 10/24/17 Unknown Rx predniSONE [Deltasone] 50 mg PO QDAY #5 tab 10/24/17 Unknown Rx Allergies Allergy/AdvReac Type Severity Reaction Status Date / Time avocado Allergy Unknown Verified 11/07/17 16:55 peanut Allergy Itching Verified 11/07/17 16:55 soybean Allergy Unknown Verified 11/07/17 16:55 KETCHUP Allergy Itching Uncoded 05/11/17 16:05 ED Review of Systems ROS: Stated complaint: EYE AND LEG PAIN Other details as noted in HPI Constitutional: denies: chills, fever, malaise Eyes: eye pain, vision change Respiratory: no symptoms reported Cardiovascular: denies: chest pain Psychiatric: denies: depression ED Past Medical Hx - Past Medical History Hx Hypertension: Yes Hx Heart Attack/AMI: No Hx Congestive Heart Failure: Yes (IN THE PAST , RESOLVED) Hx Diabetes: Yes Hx Deep Vein Thrombosis: Yes Hx Pulmonary Embolism: Yes Hx GERD: Yes Hx Arthritis: Yes Hx Kidney Stones: Yes Hx Asthma: Yes Hx COPD: Yes Hx Tuberculosis: No Hx HIV: No Additional medical history: Blood clots to bilateral legs, Legally blind - Surgical History Hx Coronary Stent: No Hx Pacemaker: No Hx Internal Defibrillator: No Additional Surgical History: fatty tumor from left shoulder removed. hysterectomy - Social History Smoking Status: Never Smoker Substance Use Type: None - Medications Home Medications: Home Medications Medication Instructions Recorded Confirmed Last Taken Type Alendronate Sodium [Fosamax] 70 mg PO QWEEK #4 tablet 02/22/16 10/21/17 1 Day Ago Rx ~04/05/16 70 Clopidogrel [Plavix] 75 mg PO QDAY #30 tablet 02/22/16 10/21/17 10/20/17 Rx Montelukast [Singulair] 10 mg PO QPM #30 tablet 02/22/16 10/21/17 10/20/17 Rx Bumetanide [Bumex 1 mg tab] 0.5 mg PO QDAY 06/10/17 10/21/17 10/20/17 History Fluticasone/Vilanterol [Breo 1 puff PO QDAY 06/10/17 10/21/17 Unknown History Ellipta 100-25 Mcg INH] Insulin NPH/Regular [NovoLIN 70/30] 10 units SC QPM 06/10/17 10/21/17 10/20/17 History Insulin NPH/Regular [NovoLIN 70/30] 15 units SC QAM 06/10/17 10/21/17 10/20/17 History Lovastatin Tab [Mevacor] 20 mg PO QHS 06/10/17 10/21/17 10/20/17 History Ranitidine HCl [Zantac 150 MG TAB] 150 mg PO BID 06/10/17 10/21/17 10/20/17 History amLODIPine [Norvasc] 5 mg PO QDAY 06/10/17 10/21/17 10/20/17 History glipiZIDE [Glucotrol] 5 mg PO QDAY 06/10/17 10/21/17 10/20/17 History prednisoLONE 1% SOD PHOSP(NF) 1 drop OS BID 06/10/17 10/24/17 10/20/17 History [Prednisol (Nf)] traZODone [Desyrel] 50 mg PO QHS 06/10/17 10/21/17 10/19/17 History ALBUTEROL Inhaler [ProAir HFA 2 puff IH QID PRN 10/21/17 10/21/17 Unknown History Inhaler] Albuterol Sulfate [Albuterol 0.63% 0.083 mg IH Q4HR PRN 10/21/17 10/21/17 Unknown History NEBS] Docusate Sodium [Colace CAP] 100 mg PO BID PRN 10/21/17 10/21/17 Unknown History Ferrous Sulfate [Feosol 325 MG tab] 325 mg PO BID 10/21/17 10/21/17 10/20/17 History Fluticasone/Vilanterol [Breo 1 each IH Q4HR PRN 10/21/17 10/21/17 Unknown History Ellipta 200-25 Mcg INH] Losartan Potassium 100 mg PO DAILY 10/21/17 10/21/17 10/20/17 History Potassium Chloride [K-Dur] 10 meq PO QDAY 10/21/17 10/21/17 10/20/17 History cloNIDine [Catapres] 0.1 mg PO BID PRN 10/21/17 10/21/17 Unknown History hydrALAZINE [Apresoline TAB] 100 mg PO BID 10/21/17 10/21/17 10/20/17 History Azithromycin [Zithromax] 250 mg PO DAILY #5 tablet 10/24/17 Unknown Rx predniSONE [Deltasone] 50 mg PO QDAY #5 tab 10/24/17 Unknown Rx ED Physical Exam - General Limitations: No Limitations General appearance: alert, in no apparent distress ED Course Vital Signs 11/07/17 11/08/17 16:55 03:24 Temperature 97.8 F 98.7 F Pulse Rate 81 75 Respiratory 20 20 Rate Blood Pressure 188/60 213/77 O2 Sat by Pulse 98 98 Oximetry Critical care attestation.: If time is entered above; I have spent that time in minutes in the direct care of this critically ill patient, excluding procedure time. ED Disposition Disposition: DC-01 TO HOME OR SELFCARE Condition: Good Instructions: Diabetic Retinopathy (ED), Lipoma (ED) Referrals: GEMA BARROSO MD [Primary Care Provider] - 3-5 Days
[2017-11-08 08:47] VITALS: BP 180/76
== END 2017-11-08 09:15 | disposition home or self-care (01) ==
LOC: ED 16:53
DX: H57.11 Ocular pain, right eye (principal); D17.9 Benign lipomatous neoplasm, unspecified; Z91.010 Allergy to peanuts; I11.0 Hypertensive heart disease with heart failure; E11.9 Type 2 diabetes mellitus without complications; Z86.718 Personal history of other venous thrombosis and embolism; Z86.711 Personal history of pulmonary embolism; K21.9 Gastro-esophageal reflux disease without esophagitis; J44.9 Chronic obstructive pulmonary disease, unspecified; M19.90 Unspecified osteoarthritis, unspecified site; Z79.4 Long term (current) use of insulin; Z90.710 Acquired absence of both cervix and uterus
CPT/HCPCS: 99283

== ENCOUNTER 2018-10-26 19:53 | Emergency (ER) | payer MEDICARE ==
[2018-10-26 21:36] LABS: Basophils % (Auto) 0.6 % (0.0-1.8); Eosinophils # (Auto) 0.4 K/mm3 (0.0-0.4); Lymphocytes # (Auto) 1.1 K/mm3 (1.2-5.4); Lymphocytes % (Auto) 24.7 % (13.4-35.0); Mean Corpuscular HGB Conc 34 % (30-34); Mean Corpuscular Volume 80 fl (79-97); Monocytes # (Auto) 0.7 K/mm3 (0.0-0.8); Platelet Count 154 K/mm3 (140-440); Red Blood Count 4.36 M/mm3 (3.65-5.03); Red Cell Distribution Width 16.2 % (13.2-15.2)
[2018-10-26 21:46] LABS: INR 0.94 (0.87-1.13)
[2018-10-26 21:47] LABS: Partial Thromboplastin Time 25.4 Sec. (24.2-36.6)
[2018-10-26 21:52] LABS: Alanine Aminotransferase 12 units/L (7-56); Albumin 3.9 g/dL (3.9-5); BUN/Creatinine Ratio 23; Blood Urea Nitrogen 16 mg/dL (7-17); Hemolysis Index 62
[2018-10-26 22:38] LABS: Bacteria,Urine 1+ /HPF (Negative); Bilirubin,Urine NEG (Negative); Blood,Urine NEG (Negative); Color,Urine Yellow (Yellow); Mucus,Urine FEW /HPF; Protein,Urine <15 mg/dL mg/dL (Negative); Urobilinogen,Urine < 2.0 mg/dL (<2.0)
[2018-10-26] MEDS ORDERED: MORPHINE IV ONE (22:43)
[2018-10-26] MEDS ORDERED: ZOFRAN ODT PO ONE (22:44)
[2018-10-26] MEDS ORDERED: FIORICET PO ONE (22:44)
--- NOTE | 2018-10-26 23:30 | Cat Scan Report ---
FINAL REPORT EXAM: CT ANGIO ABD/FEMORAL ABD AORTA HISTORY: abd pain, h/o aneurysm TECHNIQUE: CT angiogram with intravenous contrast abdomen through lower extremities bilaterally Study performed multiplanar and maximum intensity 3D reconstructions PRIORS: None. FINDINGS: The abdominal aorta is normal in caliber. There is atherosclerotic plaque present without significant stenosis. The common iliac arteries are patent. There is moderate plaque formation. Internal iliacs are patent bilaterally without significant stenosis There is a left common femoral/popliteal bypass graft which is occluded. Left common femoral through superficial femoral artery is occluded. There is some flow to the left posterior tibial artery as well as the anterior tibial and peroneal. The right common femoral artery is patent there is some plaque with significant stenosis likely great er than 60 percent at the bifurcation. The right superficial femoral artery appears occluded proximal ly with multiple areas of significant stenosis. There is some flow noted to popliteal and arteries of the calf There is plaque formation at the origin of the celiac axis and SMA there is flow distally. There also plaque at the origin of both renal arteries which appear patent the kidneys demonstrate symmetric co ntrast enhancement Otherwise no acute abnormality seen IMPRESSION: Extensive atherosclerotic disease as described above Left femoral/popliteal bypass graft appears occluded and there is lack of flow through left common th rough superficial femoral arteries Multiple areas of stenosis noted within the right common and superficial femoral arteries a portions of which appear occluded.
[2018-10-26] MEDS ORDERED: HEPARIN/ 0.45% NACL-25,000 UNIT/500 ML 25,000 UNIT/500 ML BAG IV SCH (23:45)
[2018-10-26] MEDS ORDERED: HEPARIN 10,000 UNITS/10 ML IV ONE (23:52)
--- NOTE | 2018-10-27 00:04 | Emergency Department Report ---
HPI - General Chief Complaint: Extremity Problem,Nontraumatic Time Seen by Provider: 10/26/18 21:37 - HPI HPI: The patient is a 78-year-old -[place] female who presents to the ED complaining of left lower leg pain that began 5 days ago while at rest. Symptoms have been constant since onset and she rates them as severe in severity. Patient reports the symptoms are located from ankle to mid left leg and describes the quality as dull ache. Per patient, she has had associated difficulty sleeping, Darkening of the left the extremity but denies any fever, chills or night sweats. Symptoms are improved with nothing and exacerbated by movement. Patient reports history of similar symptoms. ED Past Medical Hx - Past Medical History Previous Medical History?: Yes Hx Hypertension: Yes Hx Heart Attack/AMI: No Hx Congestive Heart Failure: Yes (IN THE PAST , RESOLVED) Hx Diabetes: Yes Hx Deep Vein Thrombosis: Yes Hx Pulmonary Embolism: Yes Hx GERD: Yes Hx Arthritis: Yes Hx Kidney Stones: Yes Hx Asthma: Yes Hx COPD: Yes Hx Tuberculosis: No Hx HIV: No Additional medical history: Blood clots to bilateral legs, Legally blind - Surgical History Past Surgical History?: Yes Hx Coronary Stent: No Hx Pacemaker: No Hx Internal Defibrillator: No Additional Surgical History: fatty tumor from left shoulder removed. hysterectomy - Social History Smoking Status: Never Smoker Substance Use Type: None - Medications Home Medications: Home Medications Medication Instructions Recorded Confirmed Last Taken Type Alendronate Sodium [Fosamax] 70 mg PO QWEEK #4 tablet 02/22/16 10/21/17 1 Day Ago Rx ~04/05/16 70 Clopidogrel [Plavix] 75 mg PO QDAY #30 tablet 02/22/16 10/21/17 10/20/17 Rx Montelukast [Singulair] 10 mg PO QPM #30 tablet 02/22/16 10/21/17 10/20/17 Rx Bumetanide [Bumex 1 mg tab] 0.5 mg PO QDAY 06/10/17 10/21/17 10/20/17 History Fluticasone/Vilanterol [Breo 1 puff PO QDAY 06/10/17 10/21/17 Unknown History Ellipta 100-25 Mcg INH] Insulin NPH/Regular [NovoLIN 70/30] 10 units SC QPM 06/10/17 10/21/1718 History Insulin NPH/Regular [NovoLIN 70/30] 15 units SC QAM 06/10/17 10/21/17 10/20/17 History Lovastatin Tab [Mevacor] 20 mg PO QHS 06/10/17 10/21/17 10/20/17 History Ranitidine HCl [Zantac 150 MG TAB] 150 mg PO BID 06/10/17 10/21/17 10/20/17 History amLODIPine [Norvasc] 5 mg PO QDAY 06/10/17 10/21/17 10/20/17 History glipiZIDE [Glucotrol] 5 mg PO QDAY 06/10/17 10/21/17 10/20/17 History prednisoLONE 1% SOD PHOSP(NF) 1 drop OS BID 06/10/17 10/24/17 10/20/17 History [Prednisol (Nf)] traZODone [Desyrel] 50 mg PO QHS 06/10/17 10/21/17 10/19/17 History ALBUTEROL Inhaler (OR & NICU) 2 puff IH QID PRN 10/21/17 10/21/17 Unknown History [ProAir HFA Inhaler] Albuterol Sulfate [Albuterol 0.63% 0.083 mg IH Q4HR PRN 10/21/17 10/21/17 Unknown History NEBS] Docusate Sodium [Colace CAP] 100 mg PO BID PRN 10/21/17 10/21/17 Unknown History Ferrous Sulfate [Feosol 325 MG tab] 325 mg PO BID 10/21/17 10/21/17 10/20/17 History Fluticasone/Vilanterol [Breo 1 each IH Q4HR PRN 10/21/17 10/21/17 Unknown History Ellipta 200-25 Mcg INH] Losartan Potassium 100 mg PO DAILY 10/21/17 10/21/17 10/20/17 History Potassium Chloride [K-Dur] 10 meq PO QDAY 10/21/17 10/21/17 10/20/17 History cloNIDine [Catapres] 0.1 mg PO BID PRN 10/21/17 10/21/17 Unknown History hydrALAZINE [Apresoline TAB] 100 mg PO BID 10/21/17 10/21/17 10/20/17 History Azithromycin [Zithromax] 250 mg PO DAILY #5 tablet 10/24/17 Unknown Rx predniSONE [Deltasone] 50 mg PO QDAY #5 tab 10/24/17 Unknown Rx ED Review of Systems ROS: Stated complaint: LEG PAIN Other details as noted in HPI Physical Exam - Physical Exam Vital Signs: Vital Signs 10/26/18 10/26/18 10/26/18 20:56 23:08 23:12 Temperature 98.4 F Pulse Rate 70 Respiratory 18 16 16 Rate Blood Pressure 149/65 O2 Sat by Pulse 98 98 Oximetry Physical Exam: - General Limitations: No Limitations General appearance: alert, in no apparent distress - Head Head exam: Present: atraumatic, normocephalic - Eye Eye exam: Present: normal appearance - ENT ENT exam: Present: mucous membranes moist - Neck Neck exam: Present: normal inspection - Respiratory Respiratory exam: Present: normal lung sounds bilaterally. Absent: respiratory distress - Cardiovascular Cardiovascular Exam: Present: regular rate, normal rhythm. Absent: systolic murmur, diastolic murmur, rubs, gallop - GI/Abdominal GI/Abdominal exam: Present: soft, normal bowel sounds - Extremities Exam Extremities exam: Present: Darkening of the left lower extremity with severely decreased dorsalis pedis pulse, no posterior tibial pulse on the left leg. - Back Exam Back exam: Present: normal inspection - Neurological Exam Neurological exam: Present: alert, oriented X3 - Psychiatric Psychiatric exam: Present: normal affect, normal mood - Skin Skin exam: Present: warm, dry, intact, normal color. Absent: rash ED Course Vital Signs 10/26/18 10/26/18 10/26/18 20:56 23:08 23:12 Temperature 98.4 F Pulse Rate 70 Respiratory 18 16 16 Rate Blood Pressure 149/65 O2 Sat by Pulse 98 98 Oximetry - Reevaluation(s) Reevaluation #1: 10/27/18 00:05 Call [place] to request transfer as patient requests that she would like to see Dr. Giancarlo Hernandez who did the surgery in July. ED Medical Decision Making - Lab Data Result diagrams: 10/27/18 00:18 10/26/18 21:11 Critical care attestation.: If time is entered above; I have spent that time in minutes in the direct care of this critically ill patient, excluding procedure time. ED Disposition Clinical Impression: PAD (peripheral artery disease) Femoral-popliteal bypass graft occlusion, left Qualifiers: Encounter type: initial encounter Qualified Code(s): T82.898A - Other specified complication of vascular prosthetic devices, implants and grafts, initial encounter Disposition: DC/TX-70 ANOTHER TYPE HLTHCARE Is pt being admited?: No Does the pt Need Aspirin: No Condition: Stable Referrals: PRIMARY CARE, [Referring] - 3-5 Days
[2018-10-27 00:33] LABS: Hemoglobin 10.8 gm/dl (10.1-14.3)
[2018-10-27 00:44] LABS: INR 1.05 (0.87-1.13)
[2018-10-27 00:45] LABS: Partial Thromboplastin Time 26.5 Sec. (24.2-36.6)
[2018-10-27 01:23] VITALS: BP 162/55
== END 2018-10-27 02:00 | disposition other institution (70) ==
LOC: ED 19:53
DX: T82.898A Other specified complication of vascular prosthetic devices, implants and grafts, initial encounter (principal); I73.9 Peripheral vascular disease, unspecified; I11.0 Hypertensive heart disease with heart failure; I50.9 Heart failure, unspecified; E11.9 Type 2 diabetes mellitus without complications; K21.9 Gastro-esophageal reflux disease without esophagitis; M19.90 Unspecified osteoarthritis, unspecified site; J44.9 Chronic obstructive pulmonary disease, unspecified; Z86.718 Personal history of other venous thrombosis and embolism; Z90.710 Acquired absence of both cervix and uterus; Z79.4 Long term (current) use of insulin; Z91.010 Allergy to peanuts; Z91.018 Allergy to other foods
CPT/HCPCS: 36415; 75635; 80053; 81001; 85014; 85018; 85025; 85049; 85610; 85730; 96365; 96375; 96376; 99285; J1644; J2270; Q9967; Q0162

== ENCOUNTER 2018-12-16 14:50 | Inpatient (IN) | payer MEDICARE ==
[2018-12-16] MEDS ORDERED: VERSED IV ONE ×2 (15:00→21:02)
--- NOTE | 2018-12-16 15:00 | Emergency Department Report ---
ED Neuro Deficit HPI - General Chief Complaint: Neuro Symptoms/Deficit Stated Complaint: STROKE Time Seen by Provider: 12/16/18 14:57 Source: patient, EMS (verbal report received from EMS.ems notes not available at time of chart dictation), RN notes reviewed Mode of arrival: Stretcher Limitations: Altered Mental Status, Physical Limitation - History of Present Illness Initial Comments: This is a 78-year-old female. Past medical history includes asthma, obesity, reportedly being blind, congestive heart failure, diabetes, GERD, hypertension, previous pulmonary embolus, previous DVT, reportedly not on systemic anticoagulation. Patient is brought to the hospital by emergency medical services as a possible code stroke. The patient's last known well time was reportedly 2:00 in the afternoon. She was reportedly last seen by family or friends at 2:00. Sometime thereafter, she may have fallen, we are not certain, and reportedly had slurred speech and left arm weakness. Upon arrival to the emergency room, the patient is noted to be having myoclonic jerking. This is constant. The patient is speaking slowly, but clearly. She denies pain. She can't really tell you when her last known well time is. Accu-Chek was reportedly within normal limits in the field. Accu-Chek was within normal limits here in the emergency room. 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 Patient received Versed 1 mg, then 2 mg additionally. These terminated her convulsions. She was also loaded with Keppra. She had an 18-gauge IV placed by myself in the right external jugular vein. A noncontrast CT scan of the brain was limited by motion artifact, and a small bleed could not be excluded by the interpreting radiologist. In addition, the patient reportedly had recent outpatient vascular surgery within the past 3 weeks on her lower extremities. Case discussed with consulting stroke neurologist, Dr. Maulik Smith, who agreed that given her convulsions, nondiagnostic head CT, exact last known well time, and recent surgical procedure, she is not a TPA candidate. The patient is somewhat confused and is not really able to provide additional information. Currently, no analysis available in the emergency room to provide a collateral information. -: unknown Location: speech, left arm Associated Symptoms: confusion - Related Data Home Medications: Home Medications Medication Instructions Recorded Confirmed Last Taken Bumetanide [Bumex 1 mg tab] 0.5 mg PO QDAY 06/10/17 10/21/17 10/20/17 Fluticasone/Vilanterol [Breo 1 puff PO QDAY 06/10/17 10/21/17 Unknown Ellipta 100-25 Mcg INH] Insulin NPH/Regular [NovoLIN 70/30] 10 units SC QPM 06/10/17 10/21/17 10/20/17 Insulin NPH/Regular [NovoLIN 70/30] 15 units SC QAM 06/10/17 10/21/17 10/20/17 Lovastatin Tab [Mevacor] 20 mg PO QHS 06/10/17 10/21/17 10/20/17 Ranitidine HCl [Zantac 150 MG TAB] 150 mg PO BID 06/10/17 10/21/17 10/20/17 amLODIPine [Norvasc] 5 mg PO QDAY 06/10/17 10/21/17 10/20/17 glipiZIDE [Glucotrol] 5 mg PO QDAY 06/10/17 10/21/17 10/20/17 prednisoLONE 1% SOD PHOSP(NF) 1 drop OS BID 06/10/17 10/24/17 10/20/17 [Prednisol (Nf)] traZODone [Desyrel] 50 mg PO QHS 06/10/17 10/21/17 10/19/17 ALBUTEROL Inhaler (OR & NICU) 2 puff IH QID PRN 10/21/17 10/21/17 Unknown [ProAir HFA Inhaler] Albuterol Sulfate [Albuterol 0.63% 0.083 mg IH Q4HR PRN 10/21/17 10/21/17 Unknown NEBS] Docusate Sodium [Colace CAP] 100 mg PO BID PRN 10/21/17 10/21/17 Unknown Ferrous Sulfate [Feosol 325 MG tab] 325 mg PO BID 10/21/17 10/21/17 10/20/17 Fluticasone/Vilanterol [Breo 1 each IH Q4HR PRN 10/21/17 10/21/17 Unknown Ellipta 200-25 Mcg INH] Losartan Potassium 100 mg PO DAILY 10/21/17 10/21/17 10/20/17 Potassium Chloride [K-Dur] 10 meq PO QDAY 10/21/17 10/21/17 10/20/17 cloNIDine [Catapres] 0.1 mg PO BID PRN 10/21/17 10/21/17 Unknown hydrALAZINE [Apresoline TAB] 100 mg PO BID 10/21/17 10/21/17 10/20/17 Previous Rx's Medication Instructions Recorded Last Taken Type Alendronate Sodium [Fosamax] 70 mg PO QWEEK #4 tablet 02/22/16 1 Day Ago Rx ~04/05/16 70 Clopidogrel [Plavix] 75 mg PO QDAY #30 tablet 02/22/16 10/20/17 Rx Montelukast [Singulair] 10 mg PO QPM #30 tablet 02/22/16 10/20/17 Rx Azithromycin [Zithromax] 250 mg PO DAILY #5 tablet 10/24/17 Unknown Rx predniSONE [Deltasone] 50 mg PO QDAY #5 tab 10/24/17 Unknown Rx Allergies/Adverse Reactions: Allergies Allergy/AdvReac Type Severity Reaction Status Date / Time avocado Allergy Unknown Verified 11/07/17 16:55 peanut Allergy Itching Verified 11/07/17 16:55 soybean Allergy Unknown Verified 11/07/17 16:55 KETCHUP Allergy Itching Uncoded 05/11/17 16:05 ED Review of Systems ROS: Stated complaint: STROKE Other details as noted in HPI Comment: Unobtainable due to pts medical conditions Constitutional: malaise Neurological: weakness, confusion ED Past Medical Hx - Past Medical History Hx Hypertension: Yes Hx Heart Attack/AMI: No Hx Congestive Heart Failure: Yes (IN THE PAST , RESOLVED) Hx Diabetes: Yes Hx Deep Vein Thrombosis: Yes Hx Pulmonary Embolism: Yes Hx GERD: Yes Hx Arthritis: Yes Hx Kidney Stones: Yes Hx Asthma: Yes Hx COPD: Yes Hx Tuberculosis: No Hx HIV: No Additional medical history: Blood clots to bilateral legs, Legally blind - Surgical History Hx Coronary Stent: No Hx Pacemaker: No Hx Internal Defibrillator: No Additional Surgical History: fatty tumor from left shoulder removed. hysterectomy - Social History Smoking Status: Never Smoker Substance Use Type: None - Medications Home Medications: Home Medications Medication Instructions Recorded Confirmed Last Taken Type Alendronate Sodium [Fosamax] 70 mg PO QWEEK #4 tablet 02/22/16 10/21/17 1 Day Ago Rx ~04/05/16 70 Clopidogrel [Plavix] 75 mg PO QDAY #30 tablet 02/22/16 10/21/17 10/20/17 Rx Montelukast [Singulair] 10 mg PO QPM #30 tablet 02/22/16 10/21/17 10/20/17 Rx Bumetanide [Bumex 1 mg tab] 0.5 mg PO QDAY 06/10/17 10/21/17 10/20/17 History Fluticasone/Vilanterol [Breo 1 puff PO QDAY 06/10/17 10/21/17 Unknown History Ellipta 100-25 Mcg INH] Insulin NPH/Regular [NovoLIN 70/30] 10 units SC QPM 06/10/17 10/21/17 10/20/17 History Insulin NPH/Regular [NovoLIN 70/30] 15 units SC QAM 06/10/17 10/21/17 10/20/17 History Lovastatin Tab [Mevacor] 20 mg PO QHS 06/10/17 10/21/17 10/20/17 History Ranitidine HCl [Zantac 150 MG TAB] 150 mg PO BID 06/10/17 10/21/17 10/20/17 History amLODIPine [Norvasc] 5 mg PO QDAY 06/10/17 10/21/17 10/20/17 History glipiZIDE [Glucotrol] 5 mg PO QDAY 06/10/17 10/21/17 10/20/17 History prednisoLONE 1% SOD PHOSP(NF) 1 drop OS BID 06/10/17 10/24/17 10/20/17 History [Prednisol (Nf)] traZODone [Desyrel] 50 mg PO QHS 06/10/17 10/21/17 10/19/17 History ALBUTEROL Inhaler (OR & NICU) 2 puff IH QID PRN 10/21/17 10/21/17 Unknown History [ProAir HFA Inhaler] Albuterol Sulfate [Albuterol 0.63% 0.083 mg IH Q4HR PRN 10/21/17 10/21/17 Unknown History NEBS] Docusate Sodium [Colace CAP] 100 mg PO BID PRN 10/21/17 10/21/17 Unknown History Ferrous Sulfate [Feosol 325 MG tab] 325 mg PO BID 10/21/17 10/21/17 10/20/17 History Fluticasone/Vilanterol [Breo 1 each IH Q4HR PRN 10/21/17 10/21/17 Unknown History Ellipta 200-25 Mcg INH] Losartan Potassium 100 mg PO DAILY 10/21/17 10/21/17 10/20/17 History Potassium Chloride [K-Dur] 10 meq PO QDAY 10/21/17 10/21/17 10/20/17 History cloNIDine [Catapres] 0.1 mg PO BID PRN 10/21/17 10/21/17 Unknown History hydrALAZINE [Apresoline TAB] 100 mg PO BID 10/21/17 10/21/17 10/20/17 History Azithromycin [Zithromax] 250 mg PO DAILY #5 tablet 10/24/17 Unknown Rx predniSONE [Deltasone] 50 mg PO QDAY #5 tab 10/24/17 Unknown Rx ED Neuro Physical Exam - General Limitations: Altered Mental Status, Physical Limitation General appearance: alert, anxious, in distress, obese Suspected Stroke: No - Head Head exam: Present: atraumatic, normocephalic - Eye Eye exam: Present: normal appearance, EOMI - ENT ENT exam: Present: mucous membranes dry, normal external ear exam - Neck Neck exam: Present: normal inspection, full ROM. Absent: tenderness, meningismus - Respiratory Respiratory exam: Present: decreased breath sounds. Absent: respiratory distress, rhonchi - Cardiovascular Cardiovascular Exam: Present: regular rate, normal rhythm, normal heart sounds. Absent: bradycardia, tachycardia, irregular rhythm, systolic murmur, diastolic murmur, rubs, gallop - GI/Abdominal GI/Abdominal exam: Present: soft. Absent: distended, tenderness, guarding, rebound, rigid, pulsatile mass - Rectal Rectal exam: Present: normal inspection - External exam: Present: normal external exam - Extremities Exam Extremities exam: Present: full ROM, pedal edema, other (patient moving 4 extremities spontaneously. Evidence of surgical grafts noted on lower extremities. There is no redness, pus or streaking. Chronic venous stasis, discoloration noted). Absent: normal inspection, calf tenderness - Back Exam Back exam: Present: normal inspection. Absent: tenderness, CVA tenderness (R), paraspinal tenderness, vertebral tenderness - Neurological Exam Neurological exam: Present: alert, other (patient moving 4 extremities spontaneously. There is no obvious facial droop. Sensation intact to light touch in 4 extremities. Patient somewhat confused, not able to complete a detailed neurologic examination) - NIHSS Assessment Interval: Baseline 1a. Level of Consciousness: alert/keenly responsive 1b. LOC Questions: answers 1 question correctly 1c. LOC Commands: performs 1 task correctly 2. Best Gaze: normal (unable to assess) 3. Visual: no visual loss (unable to assess) 4. Facial Palsy: normal symmetrical movement 5b. Motor Arm Right: drift 5a. Motor Arm Left: drift 6a. Motor Leg Left: drift 6b. Motor Leg Right: drift 7. Limb Ataxia: amputation (unable to assess) 8. Sensory: normal 9. Best Language: no aphasia 10. Dysarthria: normal 11. Extinction/Inattention: visual/tactile inattention Total Score: 7 Stroke Severity: Moderate Stroke - Psychiatric Psychiatric exam: Present: anxious - Skin Skin exam: Present: warm, dry, intact, normal color. Absent: rash ED Course Vital Signs 12/16/18 12/16/18 12/16/18 14:59 15:10 15:12 Temperature 99.8 F H Pulse Rate 97 H 82 Respiratory 23 22 Rate Blood Pressure Blood Pressure 177/76 [Right] O2 Sat by Pulse 92 Oximetry 12/16/18 12/16/18 12/16/18 15:15 15:30 15:35 Temperature 99.8 F H Pulse Rate 96 H 75 72 Respiratory 18 19 13 Rate Blood Pressure 177/76 Blood Pressure [Right] O2 Sat by Pulse 100 Oximetry 12/16/18 12/16/18 12/16/18 15:45 16:01 16:15 Temperature Pulse Rate 72 76 78 Respiratory 12 17 23 Rate Blood Pressure 177/76 209/84 Blood Pressure [Right] O2 Sat by Pulse 97 97 Oximetry 12/16/18 12/16/18 12/16/18 16:31 16:45 17:01 Temperature Pulse Rate 86 Respiratory 18 Rate Blood Pressure Blood Pressure [Right] O2 Sat by Pulse 95 99 95 Oximetry 12/16/18 12/16/18 12/16/18 17:15 17:31 17:33 Temperature Pulse Rate 73 Respiratory Rate Blood Pressure 200/123 Blood Pressure [Right] O2 Sat by Pulse 100 100 100 Oximetry 12/16/18 12/16/1819 17:45 18:01 18:34 Temperature Pulse Rate Respiratory Rate Blood Pressure Blood Pressure [Right] O2 Sat by Pulse 100 100 90 Oximetry 12/16/18 12/16/18 12/16/18 18:45 19:01 19:15 Temperature Pulse Rate Respiratory Rate Blood Pressure Blood Pressure [Right] O2 Sat by Pulse 100 100 99 Oximetry 12/16/18 19:31 Temperature Pulse Rate Respiratory Rate Blood Pressure 224/94 Blood Pressure [Right] O2 Sat by Pulse 100 Oximetry - Reevaluation(s) Reevaluation #1: 12/16/18 18:59 Differential diagnosis, including but not limited to: Transient ischemic attack, intracranial bleeding, large vessel occlusion, stroke, pneumonia, urinary tract infection, partial seizure Assessment and plan: 78-year-old female with resolved myoclonic jerking. Patient does not repeat TPA criteria for reasons that have been elucidated already. While in the emergency room, after her initial Versed wore off, patient became somewhat agitated and was pulling at her lines and pulling at her monitor. The patient did not respond to verbal de-escalation techniques. She appears to not currently have decision-making capacity. Patient was not given Haldol or Geodon out of concern for precipitating seizure. She was given additional Ativan, with out significant success. Patient was given 100 mg of ketamine in an attempt to sedate the patient to allow for acquisition of diagnostics to exclude life-threatening bleed, and disability or life-threatening large vessel occlusion. After receiving the ketamine, the patient transiently desaturated to 67%, and spontaneously improved her saturation to the high 90s. However, she became agitated, and her work of breathing appeared to increase. She was therefore intubated for airway protection. The patient was intubated by myself with 1 attempt with no obvious difficulty. Currently, a CT angiogram of the head and neck have been obtained, and interpretation is pending. We have discussed with Dr. Manuel of the critical care unit, to arrange for placement to the intensive care unit, assuming she does not require transfer for large vessel occlusion. Reevaluation #2: 12/16/18 20:09 CT angiogram of the head negative for acute disease. Elevated blood pressure reviewed and appreciated, likely secondary to ketamine induction. care transferred to Dr Jamal Dyer to follow up on cta neck and admit to medical service once back, assuming no findings that would require transfer, such as large vessel occlusion - EJ/Peripheral Line Neck L Time Out Performed: Yes Indications: nurses unable to establis Skin Cleansed in Sterile Fashion: Yes Size: 18 Dressing Placed: Tegaderm Patient Tolerated Procedure: well Neck R Time Out Performed: Yes Indications: nurses unable to establis Skin Cleansed in Sterile Fashion: Yes Size: 20 Dressing Placed: Tegaderm Patient Tolerated Procedure: well - Intubation Time Out Performed: Yes Sedative: Ketamine Mg Given: 100 Paralytic: Rocuronium Mg Given: 100 Laryngoscope: Cole Size: 3 ET Tube Size: 7.5 Tube Secured Depth (cm): 23 Tube Secured Location: teeth Tube Placement Confirmation: visualized tube passing t, equal breath sounds bilat, no breath sounds over epi, confirmation by capnometr Patient Tolerated Procedure: well Intubation Complications: none Additional Comments: Prior to intubation, patient placed on a nasal cannula at 15 L/m. Patient receives [id number] ventilation. Towel rolls place underneath the shoulder, and ears are aligned to the sternal notch. Direct laryngoscopy performed, chords are easily visualized with excellent quality view, and a 7.5 endotracheal tube was inserted under direct visualization, without any difficulty or complication. The patient tolerated this procedure without difficulty. - Lab Data Result diagrams: 12/16/18 15:19 12/16/18 15:19 Lab Results 12/16/18 12/16/18 12/16/18 Range/Units 15:19 15:19 15:19 WBC 6.3 (4.5-11.0) K/mm3 RBC 4.87 (3.65-5.03) M/mm3 Hgb 13.8 (10.1-14.3) gm/dl Hct 40.3 (30.3-42.9) % MCV 83 (79-97) fl MCH 28 (28-32) pg MCHC 34 (30-34) % RDW 16.7 H (13.2-15.2) % Plt Count 149 (140-440) K/mm3 Lymph % (Auto) 16.8 (13.4-35.0) % [place] % (Auto) 9.8 H (0.0-7.3) % Eos % (Auto) 1.7 (0.0-4.3) % Baso % (Auto) 0.5 (0.0-1.8) % Lymph # 1.1 L (1.2-5.4) K/mm3 [place] # 0.6 (0.0-0.8) K/mm3 Eos # 0.1 (0.0-0.4) K/mm3 Baso # 0.0 (0.0-0.1) K/mm3 Seg Neutrophils % 71.2 H (40.0-70.0) % Seg Neutrophils # 4.5 (1.8-7.7) K/mm3 PT 14.8 (12.2-14.9) Sec. INR 1.09 (0.87-1.13) APTT 24.3 (24.2-36.6) Sec. Thrombin Time 15.2 (15.1-19.6) Sec. POC ABG pH (7.35-7.45) POC ABG pCO2 (35-45) POC ABG pO2 (80-105) POC ABG HCO3 POC ABG Total CO2 POC ABG O2 Sat POC ABG Base Excess FiO2 % Sodium 136 L (137-145) mmol/L Potassium 4.4 (3.6-5.0) mmol/L Chloride 99.6 (98-107) mmol/L Carbon Dioxide 21 L (22-30) mmol/L Anion Gap 20 mmol/L BUN 8 (7-17) mg/dL Creatinine 0.5 L (0.7-1.2) mg/dL Estimated GFR > 60 ml/min BUN/Creatinine Ratio 16 % Glucose 109 H (65-100) mg/dL POC Glucose (70-105) Lactic Acid (0.7-2.0) mmol/L Calcium 10.1 (8.4-10.2) mg/dL Total Bilirubin (0.1-1.2) mg/dL Direct Bilirubin (0-0.2) mg/dL Indirect Bilirubin mg/dL AST (5-40) units/L ALT (7-56) units/L Alkaline Phosphatase (35-129) units/L Total Creatine Kinase 138 H (30-135) units/L CK-MB (CK-2) 2.4 (0.0-4.0) ng/mL CK-MB (CK-2) Rel Index 1.7 (0-4) Troponin T < 0.010 (0.00-0.029) ng/mL NT-Pro-B Natriuret Pep (0-900) pg/mL Total Protein (6.3-8.2) g/dL Albumin (3.9-5) g/dL Albumin/Globulin Ratio % Urine Color (Yellow) Urine Turbidity (Clear) Urine pH (5.0-7.0) Ur Specific [place] (1.003-1.030) Urine Protein (Negative) mg/dL Urine Glucose (UA) (Negative) mg/dL Urine Ketones (Negative) mg/dL Urine Blood (Negative) Urine Nitrite (Negative) Urine Bilirubin (Negative) Urine Urobilinogen (<2.0) mg/dL Ur Leukocyte Esterase (Negative) Urine WBC (Auto) (0.0-6.0) /HPF Urine RBC (Auto) (0.0-6.0) /HPF U Epithel Cells (Auto) (0-13.0) /HPF Urine Bacteria (Auto) (Negative) /HPF 12/16/18 12/16/18 12/16/18 Range/Units 15:19 15:26 16:42 WBC (4.5-11.0) K/mm3 RBC (3.65-5.03) M/mm3 Hgb (10.1-14.3) gm/dl Hct (30.3-42.9) % MCV (79-97) fl MCH (28-32) pg MCHC (30-34) % RDW (13.2-15.2) % Plt Count (140-440) K/mm3 Lymph % (Auto) (13.4-35.0) % [place] % (Auto) (0.0-7.3) % Eos % (Auto) (0.0-4.3) % Baso % (Auto) (0.0-1.8) % Lymph # (1.2-5.4) K/mm3 [place] # (0.0-0.8) K/mm3 Eos # (0.0-0.4) K/mm3 Baso # (0.0-0.1) K/mm3 Seg Neutrophils % (40.0-70.0) % Seg Neutrophils # (1.8-7.7) K/mm3 PT (12.2-14.9) Sec. INR (0.87-1.13) APTT (24.2-36.6) Sec. Thrombin Time (15.1-19.6) Sec. POC ABG pH (7.35-7.45) POC ABG pCO2 (35-45) POC ABG pO2 (80-105) POC ABG HCO3 POC ABG Total CO2 POC ABG O2 Sat POC ABG Base Excess FiO2 % Sodium (137-145) mmol/L Potassium (3.6-5.0) mmol/L Chloride (98-107) mmol/L Carbon Dioxide (22-30) mmol/L Anion Gap mmol/L BUN (7-17) mg/dL Creatinine (0.7-1.2) mg/dL Estimated GFR ml/min BUN/Creatinine Ratio % Glucose (65-100) mg/dL POC Glucose 95 (70-105) Lactic Acid 1.10 (0.7-2.0) mmol/L Calcium (8.4-10.2) mg/dL Total Bilirubin 0.70 (0.1-1.2) mg/dL Direct Bilirubin < 0.2 (0-0.2) mg/dL Indirect Bilirubin 0.5 mg/dL AST 28 (5-40) units/L ALT 14 (7-56) units/L Alkaline Phosphatase 85 (35-129) units/L Total Creatine Kinase (30-135) units/L CK-MB (CK-2) (0.0-4.0) ng/mL CK-MB (CK-2) Rel Index (0-4) Troponin T (0.00-0.029) ng/mL NT-Pro-B Natriuret Pep 1574 H (0-900) pg/mL Total Protein 7.8 (6.3-8.2) g/dL Albumin 4.4 (3.9-5) g/dL Albumin/Globulin Ratio 1.3 % Urine Color (Yellow) Urine Turbidity (Clear) Urine pH (5.0-7.0) Ur Specific [place] (1.003-1.030) Urine Protein (Negative) mg/dL Urine Glucose (UA) (Negative) mg/dL Urine Ketones (Negative) mg/dL Urine Blood (Negative) Urine Nitrite (Negative) Urine Bilirubin (Negative) Urine Urobilinogen (<2.0) mg/dL Ur Leukocyte Esterase (Negative) Urine WBC (Auto) (0.0-6.0) /HPF Urine RBC (Auto) (0.0-6.0) /HPF U Epithel Cells (Auto) (0-13.0) /HPF Urine Bacteria (Auto) (Negative) /HPF 12/16/18 12/16/18 Range/Units 17:53 Unknown WBC (4.5-11.0) K/mm3 RBC (3.65-5.03) M/mm3 Hgb (10.1-14.3) gm/dl Hct (30.3-42.9) % MCV (79-97) fl MCH (28-32) pg MCHC (30-34) % RDW (13.2-15.2) % Plt Count (140-440) K/mm3 Lymph % (Auto) (13.4-35.0) % [place] % (Auto) (0.0-7.3) % Eos % (Auto) (0.0-4.3) % Baso % (Auto) (0.0-1.8) % Lymph # (1.2-5.4) K/mm3 [place] # (0.0-0.8) K/mm3 Eos # (0.0-0.4) K/mm3 Baso # (0.0-0.1) K/mm3 Seg Neutrophils % (40.0-70.0) % Seg Neutrophils # (1.8-7.7) K/mm3 PT (12.2-14.9) Sec. INR (0.87-1.13) APTT (24.2-36.6) Sec. Thrombin Time (15.1-19.6) Sec. POC ABG pH 7.409 (7.35-7.45) POC ABG pCO2 40.3 (35-45) POC ABG pO2 402 H (80-105) POC ABG HCO3 25.5 POC ABG Total CO2 27 POC ABG O2 Sat 100 POC ABG Base Excess 1 FiO2 80 % Sodium (137-145) mmol/L Potassium (3.6-5.0) mmol/L Chloride (98-107) mmol/L Carbon Dioxide (22-30) mmol/L Anion Gap mmol/L BUN (7-17) mg/dL Creatinine (0.7-1.2) mg/dL Estimated GFR ml/min BUN/Creatinine Ratio % Glucose (65-100) mg/dL POC Glucose (70-105) Lactic Acid (0.7-2.0) mmol/L Calcium (8.4-10.2) mg/dL Total Bilirubin (0.1-1.2) mg/dL Direct Bilirubin (0-0.2) mg/dL Indirect Bilirubin mg/dL AST (5-40) units/L ALT (7-56) units/L Alkaline Phosphatase (35-129) units/L Total Creatine Kinase (30-135) units/L CK-MB (CK-2) (0.0-4.0) ng/mL CK-MB (CK-2) Rel Index (0-4) Troponin T (0.00-0.029) ng/mL NT-Pro-B Natriuret Pep (0-900) pg/mL Total Protein (6.3-8.2) g/dL Albumin (3.9-5) g/dL Albumin/Globulin Ratio % Urine Color Straw (Yellow) Urine Turbidity Clear (Clear) Urine pH 7.0 (5.0-7.0) Ur Specific [place] 1.010 (1.003-1.030) Urine Protein >500 (Negative) mg/dL Urine Glucose (UA) Neg (Negative) mg/dL Urine Ketones Neg (Negative) mg/dL Urine Blood Neg (Negative) Urine Nitrite Neg (Negative) Urine Bilirubin Neg (Negative) Urine Urobilinogen < 2.0 (<2.0) mg/dL Ur Leukocyte Esterase Neg (Negative) Urine WBC (Auto) 1.0 (0.0-6.0) /HPF Urine RBC (Auto) 2.0 (0.0-6.0) /HPF U Epithel Cells (Auto) < 1.0 (0-13.0) /HPF Urine Bacteria (Auto) 1+ (Negative) /HPF - Radiology Data Radiology results: report reviewed, image reviewed Noncontrast CT scan of the brain negative for gross bleed, however limited by motion artifact, small or subtle bleed is not excluded. X-ray of the chest #1 shows pulmonary vascular congestion and interstitial edema. X-ray the chest #2 and demonstrates appropriate placement of endotracheal tube. - Core Measures Measure Exclusions: not indicated - Thrombolytic Inclusion/Exclusion Thrombolytic Exclusion Criteria: Onset of Symptoms Unknown Thrombolytic Contraindications: Seizure at Onset, GI or Other Bleeding (recent surgery) Critical Care Time: Yes Critical care time in (mins) excluding proc time.: 60 Critical care attestation.: If time is entered above; I have spent that time in minutes in the direct care of this critically ill patient, excluding procedure time. ED Disposition Clinical Impression: Partial seizure, Abnormal CT of brain Disposition: [id number] OP ADMIT IP TO THIS HOSP Is pt being admited?: Yes Condition: Critical Referrals: PRIMARY CARE, [Primary Care Provider] - 3-5 Days
[2018-12-16] MEDS ORDERED: KEPPRA 1,000 MG/NS 0.75% 100ML 1,000 MG/100 ML BAG IV ONE (15:22)
[2018-12-16 15:33] LABS: Basophils % (Auto) 0.5 % (0.0-1.8); Eosinophils # (Auto) 0.1 K/mm3 (0.0-0.4); Eosinophils % (Auto) 1.7 % (0.0-4.3); Hematocrit 40.3 % (30.3-42.9); Hemoglobin 13.8 gm/dl (10.1-14.3); Lymphocytes # (Auto) 1.1 K/mm3 (1.2-5.4); Lymphocytes % (Auto) 16.8 % (13.4-35.0); Mean Corpuscular HGB Conc 34 % (30-34); Mean Corpuscular Volume 83 fl (79-97); Monocytes # (Auto) 0.6 K/mm3 (0.0-0.8); Monocytes % (Auto) 9.8 % (0.0-7.3); Platelet Count 149 K/mm3 (140-440); Red Blood Count 4.87 M/mm3 (3.65-5.03); Red Cell Distribution Width 16.7 % (13.2-15.2)
[2018-12-16 15:49] LABS: Alanine Aminotransferase 14 units/L (7-56); Albumin 4.4 g/dL (3.9-5)
[2018-12-16 15:52] LABS: INR 1.09 (0.87-1.13)
[2018-12-16 15:53] LABS: Bilirubin,Direct < 0.2 mg/dL (0-0.2); Partial Thromboplastin Time 24.3 Sec. (24.2-36.6); Thrombin Time 15.2 Sec. (15.1-19.6)
[2018-12-16] MEDS ORDERED: VERSED IV NR (16:00)
[2018-12-16] MEDS ORDERED: ZOSYN/NS 4.5GM/100ML 4.5 GM/100 ML VIAL IV ONE (16:06)
[2018-12-16 16:08] LABS: Creatine Kinase MB 2.4 ng/mL (0.0-4.0)
[2018-12-16 16:10] LABS: BUN/Creatinine Ratio 16; Blood Urea Nitrogen 8 mg/dL (7-17); Calcium 10.1 mg/dL (8.4-10.2); Hemolysis Index 99
[2018-12-16 16:12] LABS: Bacteria,Urine 1+ /HPF (Negative); Bilirubin,Urine NEG (Negative); Blood,Urine NEG (Negative); Color,Urine Straw (Yellow); Urobilinogen,Urine < 2.0 mg/dL (<2.0)
[2018-12-16 16:14] LABS: Protein,Urine >500 mg/dL (Negative)
[2018-12-16] MEDS ORDERED: DOXYCYCLINE HYCLATE 100 MG in NACL 0.9% 250ML 250 ML IV ONE (16:30)
[2018-12-16] MEDS ORDERED: ATIVAN ONE (16:35)
[2018-12-16] MEDS: KETAMINE HCL IV ONE ×2 (17:00→17:08)
[2018-12-16] MEDS ORDERED: KETALAR IV ONE ×2 (17:02→17:55)
[2018-12-16] MEDS ORDERED: ATIVAN IV PRN (17:13)
[2018-12-16] MEDS ORDERED: ARTIFICIAL TEARS OPHTH OINT OU PRN (17:13)
[2018-12-16] MEDS ORDERED: SUBLIMAZE IV PRN (17:13)
[2018-12-16] MEDS ORDERED: VASELINE LIP THERAPY TP PRN (17:13)
[2018-12-16] MEDS ORDERED: ZEMURON IV ONE ×2 (17:59→21:02)
[2018-12-16] MEDS ORDERED: KETAMINE HCL IV ONE (18:00)
[2018-12-16] MEDS ORDERED: fentaNYL DRIP Premix 2,000 MCG/100 ML BAG IV SCH (18:00)
[2018-12-16] MEDS ORDERED: ATIVAN 100 MG in NACL 0.9% 50 ML, VIAFLEX EMPTY CONTAINER 0 ML IV SCH (18:00)
--- NOTE | 2018-12-16 19:52 | Cat Scan Report ---
PROCEDURE: CT HEAD/BRAIN WO CON TECHNIQUE: Computerized tomography of the head was performed without contrast material. HISTORY: Stroke symptoms COMPARISONS: 04/06/2016 . FINDINGS: There is significant motion artifact. No gross hemorrhage is seen. Study is not diagnostic to evaluat e for early infarction. No hydrocephalus. No displaced fractures are seen. The visualized paranasal s inuses and mastoids are grossly aerated. IMPRESSION: There is significant motion artifact. The study is nondiagnostic to evaluate for early infarction. No gross intracranial hemorrhage is seen, however small area of hemorrhage could be missed on this exam . Findings were discussed by telephone with Dr. Shirley at 2:22 PM central standard time on 12/16/2018 . This document is electronically signed by Sara Manuel MD., December 16 2018 03:24:30 PM ET
[2018-12-16] MEDS ORDERED: APRESOLINE IV ONE (20:09)
[2018-12-16] MEDS ORDERED: ASPIRIN PR ONE (20:41)
[2018-12-16] MEDS ORDERED: KETALAR ONE (21:02)
[2018-12-16] MEDS ORDERED: ROMAZICON IV ONE (21:08)
--- NOTE | 2018-12-16 21:36 | XRay Report ---
PROCEDURE: XR CHEST 1V AP TECHNIQUE: Chest radiograph single view. HISTORY: htn COMPARISONS: 10/20/2017 . FINDINGS: Heart: Stable cardiomegaly. Mediastinum/Vessels: Mild pulmonary vascular congestion. Lungs/Pleural space: Mild interstitial prominence. No focal consolidation. No pleural effusion or pn eumothorax. Bony thorax: No acute osseous abnormality. Life support devices: None. IMPRESSION: Mild pulmonary vascular congestion and interstitial edema. This document is electronically signed by Clare Raman MD., December 16 2018 04:38:29 PM ET
[2018-12-16] MEDS ORDERED: SODIUM CHLORIDE FLUSH SYRINGE 10 ML IV PRN (21:54)
[2018-12-16] MEDS ORDERED: TYLENOL PO PRN (21:54)
[2018-12-16] MEDS ORDERED: ZOFRAN IV PRN (21:54)
[2018-12-16] MEDS ORDERED: D50W (25GM) Syringe IV PRN (22:08)
--- NOTE | 2018-12-16 22:57 | History and Physical Report ---
History of Present Illness Date of examination: 12/16/18 Date of admission: 12/16/18 21:54 History of present illness: 78-year-old white male with a history of hypertension, asthma, diabetes, pe ripheral vascular disease, legally blind, GERD was brought to the emergency room [facility] because is of slurred speech and left arm weakness. She is noted to have a seizure in the emergency room, she was intubated, now sedated. Unable to reach family, review of systems unobtainable. Old chart reviewed PAST MEDICAL HISTORY: hypertension, asthma, diabetes, peripheral vascular disease, legally blind, GERD PAST SURGICAL HISTORY: Hysterectomy, back, cataract SOCIAL HISTORY: Denies alcohol, drugs, tobacco FAMILY HISTORY: Hypertension Medications and Allergies Allergies Allergy/AdvReac Type Severity Reaction Status Date / Time avocado Allergy Unknown Verified 11/07/17 16:55 peanut Allergy Itching Verified 11/07/17 16:55 soybean Allergy Unknown Verified 11/07/17 16:55 KETCHUP Allergy Itching Uncoded 05/11/17 16:05 Home Medications Medication Instructions Recorded Confirmed Last Taken Type Clopidogrel [Plavix] 75 mg PO QDAY #30 tablet 02/22/16 12/16/18 10/20/17 Rx Fluticasone/Vilanterol [Breo 1 puff PO QDAY 06/10/17 10/21/17 Unknown History Ellipta 100-25 Mcg INH] Insulin NPH/Regular [NovoLIN 70/30] 10 units SC QPM 06/10/17 10/21/17 10/20/17 History Insulin NPH/Regular [NovoLIN 70/30] 15 units SC QAM 06/10/17 10/21/17 10/20/17 History prednisoLONE 1% SOD PHOSP(NF) 1 drop OS BID 06/10/17 12/16/18 10/20/17 History [Prednisol (Nf)] traZODone [Desyrel] 50 mg PO QHS 06/10/17 12/16/18 10/19/17 History ALBUTEROL Inhaler (OR & NICU) 2 puff IH QID PRN 10/21/17 12/16/18 Unknown Histo ry [ProAir HFA Inhaler] Fluticasone/Vilanterol [Breo 1 each IH Q4HR PRN 10/21/17 10/21/17 Unknown History Ellipta 200-25 Mcg INH] Atorvastatin [Lipitor] 40 mg 12/17/18 Unknown History Brimonidine Tartrate 0.2% 1 drop TID 12/17/18 12/17/18 Unknown History Carvedilol [Coreg] 3.125 mg 12/17/18 Unknown History Clopidogrel [Plavix] 75 mg 12/17/18 Unknown History Dorzolamide 2% Eye Drop 1 drop TID 12/17/18 12/17/18 Unknown History Famotidine [Acid Controller] 20 mg 12/17/18 Unknown History Fosamax 70 mg 12/17/18 Unknown History Gabapentin [Neurontin] 300 mg 12/17/18 Unknown History Montelukast 10 mg 12/17/18 Unknown History Ondansetron HCl 4 mg 12/17/18 Unknown History Oxybutynin Chloride [Oxybutynin 5 mg 12/17/18 Unknown History Chloride ER] Tramadol HCl 50 mg PO Q12HR 12/17/18 12/17/18 Unknown History Valsartan [Diovan] 160 mg 12/17/18 Unknown History Active Meds: Active Medications Acetaminophen (Tylenol) 650 mg PO Q4H PRN PRN Reason: Pain, Mild (1-3) Aspirin (Aspirin) 325 mg PO QDAY RYANN Dextrose (D50w (25gm) Syringe) 50 ml IV PRN PRN PRN Reason: Hypoglycemia Enoxaparin Sodium (Lovenox) 40 mg SUB-Q QDAY@1000 RYANN Fentanyl (Sublimaze) 50 mcg IV Q10MIN PRN PRN Reason: ANALGESIA Last Admin: 12/16/18 17:58 Dose: 50 mcg Documented by: Hydrophilic Ointment (Vaseline Lip Therapy) 1 applic TP Q2HR PRN PRN Reason: Dry Lips Fentanyl Citrate (Fentanyl Drip Premix) 2,000 mcg in 100 mls @ 4.785 mls/hr IV TITR RYANN; Protocol Last Titration: 12/16/18 18:55 Dose: 3 mcg/kg/hr, 14.356 mls/hr Documented by: Lorazepam 100 mg/ Sodium Chloride/ Miscellaneous Information 100 mls @ 1 mls/hr IV TITR RYANN; Protocol Last Admin: 12/16/18 19:37 Dose: 1 mg/hr, 1 mls/hr Documented by: Sodium Chloride (Nacl 0.45% 1000 Ml) 1,000 mls @ 50 mls/hr IV DIRECT RYANN Insulin Human Lispro (Humalog) 0 unit SUB-Q Q6HR RYANN; Protocol Lorazepam (Ativan) 2 mg IV Q10MIN PRN PRN Reason: Agitation Last Admin: 12/16/18 17:00 Dose: 2 mg Documented by: Multi-Ingred Cream/Lotion/Oil/Oint (Artificial Tears Ophth Oint) 1 applic OU Q4HR PRN PRN Reason: Dry Eye(s) Ondansetron HCl (Zofran) 4 mg IV Q4H PRN PRN Reason: Nausea And Vomiting Sodium Chloride (Sodium Chloride Flush Syringe 10 Ml) 10 ml IV PRN PRN PRN Reason: LINE FLUSH Exam - Physical Exam Narrative exam: General Apperance: The patient lying in bed, breathing comfortable, intubated HEENT: Normocephalic, atraumatic. Pupils equally round and reactive to light, unable to do EOM, no sclericterus or JVD or thyromegaly or nodule. , no carotid bruit, mucous membranes moist, unable to examine oral cavity, ET tube in place Heart: S1-S2, regular is rhythm Lungs: Clear to auscultation bilaterally, breathing comfortable Abdomen: Positive bowel sounds, soft, nondistended, no organomegaly Extremities: No edema cyanosis clubbing Skin: no rash, nodule, warm and dry Neuro: Sedated - Constitutional Vitals: Temp Pulse Resp BP Pulse Ox 99.8 F H 66 15 134/58 100 12/16/18 15:35 12/16/18 22:30 12/16/18 22:30 12/16/18 22:30 12/16/18 22:30 Results - Labs CBC & Chem 7: 12/16/18 15:19 12/16/18 15:19 Labs: Abnormal lab results 12/16/18 12/16/18 12/16/18 Range/Units 15:19 15: 15: RDW 16.7 H (13.2-15.2) % Cedar % (Auto) 9.8 H (0.0-7.3) % Lymph # 1.1 L (1.2-5.4) K/mm3 Seg Neutrophils % 71.2 H (40.0-70.0) % POC ABG pO2 (80-105) Sodium 136 L (137-145) mmol/L Carbon Dioxide 21 L (22-30) mmol/L Creatinine 0.5 L (0.7-1.2) mg/dL Glucose 109 H (65-100) mg/dL Total Creatine Kinase 138 H (30-135) units/L NT-Pro-B Natriuret Pep 1574 H (0-900) pg/mL 12/16/18 Range/Units 17:53 RDW (13.2-15.2) % Cedar % (Auto) (0.0-7.3) % Lymph # (1.2-5.4) K/mm3 Seg Neutrophils % (40.0-70.0) % POC ABG pO2 402 H (80-105) Sodium (137-145) mmol/L Carbon Dioxide (22-30) mmol/L Creatinine (0.7-1.2) mg/dL Glucose (65-100) mg/dL Total Creatine Kinase (30-135) units/L NT-Pro-B Natriuret Pep (0-900) pg/mL - Imaging and Cardiology CT Scan - head: report reviewed Assessment and Plan Assessment Acute respiratory failure Acute CVA Seizure, new onset Hypertension Diabetes Peripheral vascular disease Legally blind Plan Continue sedation Obtain MRI of the head, echo Do neurochecks, consult critical care, neurology Check fingersticks DVT prophylaxis
[2018-12-16] MEDS ORDERED: NACL 0.45% 1000 ML 1,000 ML IV SCH (23:00)
--- NOTE | 2018-12-16 23:15 | XRay Report ---
PROCEDURE: XR CHEST 1V AP TECHNIQUE: Chest radiograph single view. HISTORY: ETT placement COMPARISONS: CXR 12/16/2018 at 3:20 PM, CT chest 10/21/2017. FINDINGS: Heart: Normal. Mediastinum/Vessels: Calcification of aorta is again noted. Prominence of the perihilar vasculature i s noted, unchanged from previous. Lungs/Pleural space: Normal. Bony thorax: No acute osseous abnormality. Life support devices: Endotracheal tube has been placed terminating 2.2 cm above the jessica.. IMPRESSION: ET tube has been placed terminating 2.2 cm above the jessica. There is prominence of perih ilar vasculature which is stable. This document is electronically signed by Tanna Upton MD., December 16 2018 05:50:29 PM ET
--- NOTE | 2018-12-16 23:20 | Cat Scan Report ---
PROCEDURE: CT ANGIO HEAD TECHNIQUE: Computerized tomographic angiography of the head was performed after the IV injection of iodinated nonionic contrast including image processing. The image data was postprocessed using 2-dim ensional multiplanar reformatted (MPR) and 3-dimensional (MIP and/or volume rendered) techniques. HISTORY: cva COMPARISONS: Noncontrast head CT also performed today . FINDINGS: There is no definite CT evidence of an acute intracranial process and no evidence of significant mass effect. There are retained secretions in the oral pharynx secondary to indwelling life support tube. There is atherosclerotic vascular calcification of the internal carotid arteries bilaterally at the s kull base. There is no evidence of occlusion, hemodynamically significant stenosis or aneurysm of the major intr acranial arteries. The predominant supply to the anterior cerebral arteries bilaterally is from the left internal caroti d artery. The right A1 is hypoplastic. (normal variant). There is normal enhancement of the major intracranial venous structures. IMPRESSION: 1. No evidence of occlusion, hemodynamically significant stenosis or aneurysm of the major intracrani al arteries. This document is electronically signed by Sophy Medina MD., December 16 2018 08:01:49 PM ET
--- NOTE | 2018-12-16 23:20 | Cat Scan Report ---
PROCEDURE: CT ANGIO NECK TECHNIQUE: Computerized tomographic angiography of the neck was performed after the IV injection of iodinated nonionic contrast including image processing. The image data was postprocessed using 2-dime nsional multiplanar reformatted (MPR) and 3-dimensional (MIP and/or volume rendered) techniques. HISTORY: cva Note: Assessment of carotid artery stenosis is based on measurement of the distal internal carotid a rtery diameter as the denominator for stenosis calculations and the [place] Symptomatic Caroti d Endarterectomy Trial (NASCET) stenosis criteria. FINDINGS: Contrast-enhanced CT angiography of the neck and head was performed following the intraveno us administration of iodinated contrast. Data was reformatted into the sagittal and coronal planes. CTA NECK: There is some right-sided dependent consolidation likely atelectasis. The pulmonary apices otherwise appear clear. There are small bilateral low-density thyroid nodules the largest of which is in the ri ght, 0.9 cm. On the right, there is mild plaque in the right common carotid artery without significant stenosis. T here is plaque in the right carotid bulb resulting in a short segment, estimated 20% stenosis. There is plaque in the proximal internal carotid artery resulting in a short segment estimated 30% stenosis . The external carotid artery is patent. The vertebral artery is patent throughout its course. On the left, there is calcific plaque in the superior aspect of the common carotid artery resulting i n a short segment estimated 30% stenosis. There is plaque in the left proximal internal carotid arter y resulting in a short segment estimated 30% stenosis. The internal carotid artery is tortuous but pa tent. The vertebral artery is patent throughout its course. There is fluid in the nasopharynx at time of imaging, without loculated collection identified. CTA HEAD: Both vertebral arteries are patent. The basilar artery is patent. The posterior cerebral arteries chiquita ear patent bilaterally. In the anterior circulation, both internal carotid arteries are mildly atherosclerotic but patent. Th e anterior cerebral and middle cerebral arteries appear patent bilaterally. No aneurysm is seen No suspect focal brain mass is identified. There is no acute infarct identified. The mastoid air cells and middle ears appear clear. There is no evidence of acute sinusitis. There are calcifications in the left globe. There is hyperdensity in the left globe which could repre sent consequence of prior retinal detachment or prior vitreous hemorrhage. This was also present on p rior CT of April 06, 2016. IMPRESSION: CTA neck: No stenosis of greater than 50% is seen in the cervical arterial vasculature CTA HEAD: The intracranial arterial vasculature appears patent. This document is electronically signed by Tyrone Clay MD., December 16 2018 07:49:56 PM ET
[2018-12-17] MEDS: HumaLOG SUB-Q SCH ×4 (00:34→20:00)
--- NOTE | 2018-12-17 02:56 | XRay Report ---
PROCEDURE: XR CHEST 1V AP TECHNIQUE: Chest radiograph single view. HISTORY: follow up respiratory failure COMPARISONS: 12/16/2018 . FINDINGS: Heart: The heart is mildly enlarged.. Mediastinum/Vessels: The lungs appear less congested.. Lungs/Pleural space: There is still interstitial prominence in both lungs.. Bony thorax: No acute osseous abnormality. Life support devices: The ET tube and NG tube appear in good position.. IMPRESSION: Resolving congestive heart failure pattern with residual interstitial prominence noted.. This document is electronically signed by Yonas Gates MD., December 17 2018 02:54:15 AM ET
[2018-12-17 05:48] LABS: Creatine Kinase MB 6.5 ng/mL (0.0-4.0)
[2018-12-17 05:57] LABS: Chol/HDL Ratio 2.52 %
[2018-12-17] MEDS ORDERED: LOVENOX SUB-Q SCH ×2 (10:00)
--- NOTE | 2018-12-17 11:17 | Progress Note ---
Subjective Date of service: 12/17/18 Interval history: see the dictation on the patient spoke to family suspect CP arrest likely P.E. based on prior hx of surgeries etc. and being in rehab center Objective - Vital Sign Vital Signs - 12hr 12/16/18 12/16/18 12/16/18 23:28 23:30 23:58 Temperature Pulse Rate 66 62 67 Respiratory 11 L Rate Blood Pressure O2 Sat by Pulse 100 100 100 Oximetry 12/17/18 12/17/18 12/17/18 00:01 00:31 01:01 Temperature Pulse Rate 59 L 53 L 56 L Respiratory 15 15 15 Rate Blood Pressure 160/70 133/59 O2 Sat by Pulse 100 100 100 Oximetry 12/17/18 12/17/18 12/17/18 01:31 02:01 02:31 Temperature Pulse Rate 54 L 53 L 58 L Respiratory 15 15 15 Rate Blood Pressure 137/62 139/63 118/58 O2 Sat by Pulse 100 100 100 Oximetry 12/17/18 12/17/18 12/17/18 03:01 03:16 03:31 Temperature 98.7 F Pulse Rate 53 L 54 L Respiratory 13 15 Rate Blood Pressure 153/66 159/71 O2 Sat by Pulse 100 100 Oximetry 12/17/18 12/17/18 12/17/18 04:01 04:11 04:24 Temperature Pulse Rate 53 L 53 L 54 L Respiratory 15 Rate Blood Pressure 162/70 O2 Sat by Pulse 100 100 Oximetry 12/17/18 12/17/18 12/17/18 04:31 05:01 05:31 Temperature Pulse Rate 52 L 52 L 56 L Respiratory 15 15 15 Rate Blood Pressure 160/66 161/71 O2 Sat by Pulse 100 100 100 Oximetry 12/17/18 12/17/18 12/17/18 06:01 06:02 06:31 Temperature Pulse Rate 54 L 52 L Respiratory 15 15 Rate Blood Pressure 156/69 156/69 O2 Sat by Pulse 100 100 100 Oximetry 12/17/18 12/17/18 12/17/18 07:01 07:31 08:00 Temperature Pulse Rate 54 L 53 L 48 L Respiratory 15 15 Rate Blood Pressure 145/64 141/63 128/60 O2 Sat by Pulse 100 100 98 Oximetry 12/17/18 08:01 Temperature Pulse Rate 51 L Respiratory 15 Rate Blood Pressure 141/66 O2 Sat by Pulse 98 Oximetry - Laboratory Findings CBC and BMP: 12/16/18 15:19 12/16/18 15:19 Abnormal Lab Findings: Abnormal Labs 12/16/18 12/16/18 12/16/18 00:00 15:19 15:19 RDW 16.7 H Young % (Auto) 9.8 H Lymph # 1.1 L Seg Neutrophils % 71.2 H POC ABG pO2 Sodium 136 L Carbon Dioxide 21 L Creatinine 0.5 L Glucose 109 H POC Glucose Total Creatine Kinase 138 H CK-MB (CK-2) 5.4 H CK-MB (CK-2) Rel Index 4.3 H Troponin T 0.075 H NT-Pro-B Natriuret Pep HDL Cholesterol 12/16/18 12/16/18 12/17/18 15:19 17:53 00:02 RDW Young % (Auto) Lymph # Seg Neutrophils % POC ABG pO2 402 H Sodium Carbon Dioxide Creatinine Glucose POC Glucose 238 H Total Creatine Kinase CK-MB (CK-2) CK-MB (CK-2) Rel Index Troponin T NT-Pro-B Natriuret Pep 1574 H HDL Cholesterol 12/17/18 12/17/18 12/17/18 03:56 03:56 05:38 RDW Young % (Auto) Lymph # Seg Neutrophils % POC ABG pO2 Sodium Carbon Dioxide Creatinine Glucose POC Glucose 218 H Total Creatine Kinase CK-MB (CK-2) 6.5 H CK-MB (CK-2) Rel Index 5.3 H Troponin T 0.062 H D NT-Pro-B Natriuret Pep HDL Cholesterol 63 H 12/17/18 05:53 RDW Young % (Auto) Lymph # Seg Neutrophils % POC ABG pO2 134 H Sodium Carbon Dioxide Creatinine Glucose POC Glucose Total Creatine Kinase CK-MB (CK-2) CK-MB (CK-2) Rel Index Troponin T NT-Pro-B Natriuret Pep HDL Cholesterol
[2018-12-17] MEDS ORDERED: NACL 0.9% 1000 ML 1,000 ML IV ONE (11:20)
--- NOTE | 2018-12-17 11:38 | Event Note ---
Date: 12/17/18 Patient was brought in for slurred speech, left sided weakness, had seizures. I have seen and examined her. MRI Brain ordered, EEG ordered. Discussed with Dr. Carrero.
[2018-12-17] MEDS ORDERED: APRESOLINE IV PRN (11:39)
[2018-12-17] MEDS: ASPIRIN PO SCH (12:03)
[2018-12-17] MEDS ORDERED: KEPPRA 1,000 MG/NS 0.75% 100ML 1,000 MG/100 ML BAG IV SCH (13:00)
--- NOTE | 2018-12-17 13:20 | Consultation ---
History of Present Illness Consult date: 12/17/18 Requesting physician: JOCELYN PAVON Reason for consult: other (Acute respiratory failure) History of present illness: 78 y/o female, originally found down at home, brought in by EMS, awake and alert per family and charting, who had witnessed jerking/convulsions. There was concern that this was seizure activity and she was treated as such with Versed and Ativan. Per documentation, jerking improved and then patient became agitated so ketamine was given for sedation. She became more agitated and then ketamine was given again for induction of intubation. The patient was intubate for airway protection as they felt she would be a danger to herself. She was then placed on Fentanyl and Ativan drips, both of which were turned off overnight. Currently the patient is not breathing over the vent. She is not re sponsive to painful stimuli. Niece at bedside. Spoke with sister in law over the phone. She was not able to provide much history outside of the fact that she does have some form of retinal implant. Past History Past Medical History: diabetes, hypertension, other (Cataracts, peripheral vascular disease, asthma) Past Surgical History: Other (vascular surgery at [facility]) Social history: other (no children, one brother) Family history: other (unable to obtain) Medications and Allergies Allergies Allergy/AdvReac Type Severity Reaction Status Date / Time avocado Allergy Unknown Verified 11/07/17 16:55 peanut Allergy Itching Verified 11/07/17 16:55 soybean Allergy Unknown Verified 11/07/17 16:55 KETCHUP Allergy Itching Uncoded 05/11/17 16:05 Home Medications Medication Instructions Recorded Confirmed Last Taken Type Clopidogrel [Plavix] 75 mg PO QDAY #30 tablet 02/22/16 12/16/18 10/20/17 Rx Fluticasone/Vilanterol [Breo 1 puff PO QDAY 06/10/17 10/21/17 Unknown History Ellipta 100-25 Mcg INH] Insulin NPH/Regular [NovoLIN 70/30] 10 units SC QPM 06/10/17 10/21/17 10/20/17 History Insulin NPH/Regular [NovoLIN 70/30] 15 units SC QAM 06/10/17 10/21/17 10/20/17 History prednisoLONE 1% SOD PHOSP(NF) 1 drop OS BID 06/10/17 12/16/18 10/20/17 History [Prednisol (Nf)] traZODone [Desyrel] 50 mg PO QHS 06/10/17 12/16/18 10/19/17 History ALBUTEROL Inhaler (OR & NICU) 2 puff IH QID PRN 10/21/17 12/16/18 Unknown History [ProAir HFA Inhaler] Fluticasone/Vilanterol [Breo 1 each IH Q4HR PRN 10/21/17 10/21/17 Unknown History Ellipta 200-25 Mcg INH] Atorvastatin [Lipitor] 40 mg 12/17/18 Unknown History Brimonidine Tartrate 0.2% 1 drop TID 12/17/18 12/17/18 Unknown History Carvedilol [Coreg] 3.125 mg 12/17/18 Unknown History Clopidogrel [Plavix] 75 mg 12/17/18 Unknown History Dorzolamide 2% Eye Drop 1 drop TID 12/17/18 12/17/18 Unknown History Famotidine [Acid Controller] 20 mg 12/17/18 Unknown History Fosamax 70 mg 12/17/18 Unknown History Gabapentin [Neurontin] 300 mg 12/17/18 Unknown History Montelukast 10 mg 12/17/18 Unknown History Ondansetron HCl 4 mg 12/17/18 Unknown History Oxybutynin Chloride [Oxybutynin 5 mg 12/17/18 Unknown History Chloride ER] Tramadol HCl 50 mg PO Q12HR 12/17/18 12/17/18 Unknown History Valsartan [Diovan] 160 mg 12/17/18 Unknown History Active Meds: Active Medications Acetaminophen (Tylenol) 650 mg PO Q4H PRN PRN Reason: Pain, Mild (1-3) Aspirin (Aspirin) 325 mg PO QDAY [facility] Last Admin: 12/17/18 12:03 Dose: Not Given Documented by: Dextrose (D50w (25gm) Syringe) 50 ml IV PRN PRN PRN Reason: Hypoglycemia Enoxaparin Sodium (Lovenox) 40 mg SUB-Q QDAY@1000 [facility] Last Admin: 12/17/18 12:02 Dose: 40 mg Documented by: Hydralazine HCl (Apresoline) 10 mg IV Q4H PRN PRN Reason: SBP>170 or DBP>110 Hydrophilic Ointment (Vaseline Lip Therapy) 1 applic TP Q2HR PRN PRN Reason: Dry Lips Levetiracetam (Keppra 1,000 Mg/Ns 0.75% 100ml) 1,000 mg in 100 mls @ 400 mls/hr IV Q12HR RYANN Insulin Human Lispro (Humalog) 0 unit SUB-Q Q6HR RYANN; Protocol Last Admin: 12/17/18 12:16 Dose: 2 unit Documented by: Multi-Ingred Cream/Lotion/Oil/Oint (Artificial Tears Ophth Oint) 1 applic OU Q4HR PRN PRN Reason: Dry Eye(s) Ondansetron HCl (Zofran) 4 mg IV Q4H PRN PRN Reason: Nausea And Vomiting Sodium Chloride (Sodium Chloride Flush Syringe 10 Ml) 10 ml IV PRN PRN PRN Reason: LINE FLUSH Review of Systems ROS unobtainable: due to endotracheal tube, due to mental status Physical Examination Vital signs: Vital Signs BP 177/76 12/16/18 14:59 General appearance: comatose Eyes: injected ENT: other (orally intubated not on sedation) Neck: supple Ascultation: Bilateral: clear Percussion: Bilateral: not dull Cardiovascular: regular rate and rhythm Gastrointestinal: soft unable to assess Results - Laboratory Findings CBC and BMP: 12/16/18 15:19 12/16/18 15:19 ABG POC ABG pH 7.426 (7.35-7.45) 12/17/18 05:53 POC ABG pCO2 35.4 (35-45) 12/17/18 05:53 POC ABG pO2 134 (80-105) H 12/17/18 05:53 POC ABG HCO3 23.3 12/17/18 05:53 POC ABG Total CO2 24 12/17/18 05:53 POC ABG O2 Sat 99 12/17/18 05:53 PT/INR, D-dimer PT 14.8 Sec. (12.2-14.9) 12/16/18 15:19 INR 1.09 (0.87-1.13) 12/16/18 15:19 Abnormal lab findings: Abnormal Labs 12/16/18 12/16/18 12/16/18 00:00 15:19 15:19 RDW 16.7 H Owen % (Auto) 9.8 H Lymph # 1.1 L Seg Neutrophils % 71.2 H POC ABG pO2 Sodium 136 L Carbon Dioxide 21 L Creatinine 0.5 L Glucose 109 H POC Glucose Total Creatine Kinase 138 H CK-MB (CK-2) 5.4 H CK-MB (CK-2) Rel Index 4.3 H Troponin T 0.075 H NT-Pro-B Natriuret Pep HDL Cholesterol 12/16/18 12/16/18 12/17/18 15:19 17:53 00:02 RDW Owen % (Auto) Lymph # Seg Neutrophils % POC ABG pO2 402 H Sodium Carbon Dioxide Creatinine Glucose POC Glucose 238 H Total Creatine Kinase CK-MB (CK-2) CK-MB (CK-2) Rel Index Troponin T NT-Pro-B Natriuret Pep 1574 H HDL Cholesterol 12/17/18 12/17/18 12/17/18 03:56 03:56 05:38 RDW Owen % (Auto) Lymph # Seg Neutrophils % POC ABG pO2 Sodium Carbon Dioxide Creatinine Glucose POC Glucose 218 H Total Creatine Kinase CK-MB (CK-2) 6.5 H CK-MB (CK-2) Rel Index 5.3 H Troponin T 0.062 H D NT-Pro-B Natriuret Pep HDL Cholesterol 63 H 12/17/18 12/17/18 05:53 12:07 RDW Owen % (Auto) Lymph # Seg Neutrophils % POC ABG pO2 134 H Sodium Carbon Dioxide Creatinine Glucose POC Glucose 203 H Total Creatine Kinase CK-MB (CK-2) CK-MB (CK-2) Rel Index Troponin T NT-Pro-B Natriuret Pep HDL Cholesterol - Diagnostic Findings Chest x-ray: image reviewed (mild congestive changes) Assessment and Plan 78 y/o female with seizure like activity, now intubated for airway protection, but has had a change in mental state and is comatose 1. Repeat Head CT 2. Discontinue all sedative medications 3. May need to consider holding keppra as well 4. Unable to obtain MRI 5. Check UDS tomorrow to see if opiates and benzo's still in system if not awake 6. Overall prognosis is guarded CCT 31 minutes.
[2018-12-17] MEDS ORDERED: NACL 0.9% 1000 ML 1,000 ML ONE (14:06)
[2018-12-17] MEDS ORDERED: LEVOPHED DRIP 4 MG/NS 250 ML 4 MG/250 ML BAG IV ONE (14:41)
--- NOTE | 2018-12-17 15:13 | Event Note ---
Date: 12/17/18 Called by nursing that BP was dropping and patient hypothermic. Attempted to place central line. Looked in both IJ's and right femoral. Patient has multiple scars on her legs from prior vascular surgeries and procedures. Unable to place central line secondary to significant scarring in skin and vein. Explained this to family and they request that she remain full code. Will run pressor through peripheral IV but as I told them, this will not work and is not ideal care. They accept the understanding of the consequences of this.
--- NOTE | 2018-12-17 15:18 | Event Note ---
Date: 12/17/18 Called by Nurse, that patient hypotensive, given bolus with no improvement. Lapeler attempted central line placement, unable to. Levophed will be run on peripheral line for now. I had discussion with family. I discussed her poor prognosis. She has been comatose, unresponsive, hypothermic. Brother states patient called that she fell and could not get up after she fell , it took about 90mins to get m[place]racken and go in to her place. She was having seizures when they met her, then paramedics brought her to hospital. family wants full code for now.
--- NOTE | 2018-12-17 22:58 | Consultation ---
HISTORY OF PRESENT ILLNESS: This is a 78-year-old black female, who presents to [facility] after apparently being found in her home alone, unresponsive, for which she was brought into the hospital. She was brought in an unresponsive state. Apparently was found face down by family members and not responding at all. She has been previously discharged in care center at [facility] after being there for 21 days following vein surgery and peripheral vascular surgery. It is unknown as to whether she was placed on any anticoagulants. This is being currently looked into. PAST MEDICAL HISTORY: Entirely unclear other than she was in the rehab center at [facility]. She has not previously had any episodes of unresponsiveness, seizure or stroke. ALLERGIES: None. SOCIAL HISTORY: Denies drinking, denies smoking. PHYSICAL EXAMINATION: VITAL SIGNS: On my examination, the patient is in an unresponsive state. She is on a ventilator. NEUROLOGIC: Cranial nerves are intact, but she does not respond to pain or withdrawal of the extremities. She will, however, have a positive gag reflex. Pupils are 4 mm. No spontaneous movements are present. No seizure activity is noted. She is not currently on Diprivan drip. IMPRESSION: Coma following cardiopulmonary arrest. Etiology is unclear, although presumably she likely had a pulmonary embolus given the overall situation of being in a rehab center after extensive vascular surgery, do not rule out acute stroke at present time, plan to further assess the patient. Orders are written. We will speak to the attending physician, Dr. Isaacs. I spoke at the bedside with the family members, advised them about the seriousness of the condition. At present, the only reflex I am getting is a brainstem reflex with cough but prognosis is otherwise poor given the clinical situation. JOB# [id number] JUAN/NTS
[2018-12-17] MEDS: LEVOPHED DRIP 4 MG/NS 250 ML 4 MG/250 ML BAG IV SCH (23:07)
[2018-12-18] MEDS: HumaLOG SUB-Q SCH ×4 (00:49→19:19)
--- NOTE | 2018-12-18 03:10 | XRay Report ---
PROCEDURE: XR CHEST 1V AP TECHNIQUE: A portable upright view of the chest was obtained. HISTORY: follow up respiratory failure COMPARISONS: Comparison is made to the study of 12/17/2018 FINDINGS: The heart is mildly enlarged. The lungs are not overly congested. There is mild atelectasis in the ri ght lung base. The tip of the ET tube is at the jessica and needs be pulled back 2 cm for optimal posi tioning. The NG tube is in good position the stomach. The skeletal structures are well-maintained. IMPRESSION: Mild atelectasis in the right lung base. The ET tube is at the jessica. It should be pulled back 2 cm for optimal positioning.. This document is electronically signed by Yonas Gates MD., December 18 2018 03:07:32 AM ET
[2018-12-18 04:17] LABS: Hematocrit 34.2 % (30.3-42.9); Hemoglobin 11.8 gm/dl (10.1-14.3); Mean Corpuscular HGB Conc 35 % (30-34); Mean Corpuscular Volume 82 fl (79-97); Platelet Count 104 K/mm3 (140-440); Red Blood Count 4.15 M/mm3 (3.65-5.03); Red Cell Distribution Width 16.5 % (13.2-15.2)
[2018-12-18 04:24] LABS: Calcium 9.1 mg/dL (8.4-10.2)
[2018-12-18] MEDS: KEPPRA 1,000 MG in NACL 0.9% 100 ML IV SCH ×2 (04:25→17:00)
--- NOTE | 2018-12-18 08:24 | Progress Note ---
Subjective Date of service: 12/18/18 Interval history: to my need the CT is very difficult to review secondary to movement artefact will get EEG and another ct ON TUESDAY WILL FOLLOW AND DISCUSS WITH THE FAMILY SPOKE TO DR. Mauricio Objective - Vital Sign Vital Signs - 12hr 12/17/18 12/17/18 12/17/18 20:30 21:00 21:30 Temperature Pulse Rate 78 77 80 Respiratory 15 15 15 Rate Blood Pressure 113/58 111/61 90/52 O2 Sat by Pulse 96 96 97 Oximetry 12/17/18 12/17/18 12/17/18 22:00 22:30 23:00 Temperature Pulse Rate 77 80 81 Respiratory 15 15 15 Rate Blood Pressure 93/49 89/48 95/53 O2 Sat by Pulse 96 96 96 Oximetry 12/17/18 12/17/18 12/17/18 23:11 23:12 23:25 Temperature 98.7 F Pulse Rate 81 80 Respiratory 15 Rate Blood Pressure 95/53 91/49 O2 Sat by Pulse 100 99 Oximetry 12/17/18 12/18/18 12/18/18 23:30 00:01 00:30 Temperature Pulse Rate 81 83 83 Respiratory 15 15 15 Rate Blood Pressure 93/52 73/44 78/44 O2 Sat by Pulse 100 98 96 Oximetry 12/18/18 12/18/18 12/18/18 01:00 01:30 02:00 Temperature Pulse Rate 82 81 85 Respiratory 15 15 15 Rate Blood Pressure 95/53 165/86 92/57 O2 Sat by Pulse 98 96 95 Oximetry 12/18/18 12/18/18 12/18/18 02:30 02:43 03:00 Temperature Pulse Rate 83 86 86 Respiratory 15 15 Rate Blood Pressure 86/56 96/60 97/57 O2 Sat by Pulse 96 100 Oximetry 12/18/18 12/18/18 12/18/18 03:29 03:31 04:00 Temperature 98.3 F Pulse Rate 84 82 Respiratory 15 15 Rate Blood Pressure 101/56 83/56 O2 Sat by Pulse 100 98 Oximetry 12/18/18 12/18/18 12/18/18 04:31 05:00 05:30 Temperature Pulse Rate 82 83 82 Respiratory 15 15 15 Rate Blood Pressure 164/71 103/61 89/53 O2 Sat by Pulse 98 97 97 Oximetry 12/18/18 12/18/18 12/18/18 06:00 06:30 07:00 Temperature Pulse Rate 82 81 82 Respiratory 15 15 15 Rate Blood Pressure 90/51 83/36 79/46 O2 Sat by Pulse 96 98 96 Oximetry 12/18/18 07:36 Temperature Pulse Rate 82 Respiratory Rate Blood Pressure 77/44 O2 Sat by Pulse 100 Oximetry - Laboratory Findings CBC and BMP: 12/18/18 03:48 12/18/18 03:48 Abnormal Lab Findings: Abnormal Labs 12/16/18 12/16/18 12/16/18 00:00 15:19 15:19 MCHC RDW 16.7 H Plt Count [place] % (Auto) 9.8 H Lymph # 1.1 L Seg Neutrophils % 71.2 H D-Dimer POC ABG pH POC ABG pCO2 POC ABG pO2 Sodium 136 L Carbon Dioxide 21 L Creatinine 0.5 L Glucose 109 H POC Glucose Total Creatine Kinase 138 H CK-MB (CK-2) 5.4 H CK-MB (CK-2) Rel Index 4.3 H Troponin T 0.075 H NT-Pro-B Natriuret Pep HDL Cholesterol 12/16/18 12/16/18 12/17/18 15:19 17:53 00:02 MCHC RDW Plt Count [place] % (Auto) Lymph # Seg Neutrophils % D-Dimer POC ABG pH POC ABG pCO2 POC ABG pO2 402 H Sodium Carbon Dioxide Creatinine Glucose POC Glucose 238 H Total Creatine Kinase CK-MB (CK-2) CK-MB (CK-2) Rel Index Troponin T NT-Pro-B Natriuret Pep 1574 H HDL Cholesterol 12/17/18 12/17/18 12/17/18 03:56 03:56 05:38 MCHC RDW Plt Count [place] % (Auto) Lymph # Seg Neutrophils % D-Dimer POC ABG pH POC ABG pCO2 POC ABG pO2 Sodium Carbon Dioxide Creatinine Glucose POC Glucose 218 H Total Creatine Kinase CK-MB (CK-2) 6.5 H CK-MB (CK-2) Rel Index 5.3 H Troponin T 0.062 H D NT-Pro-B Natriuret Pep HDL Cholesterol 63 H 12/17/18 12/17/18 12/17/18 05:53 12:07 12:44 MCHC RDW Plt Count [place] % (Auto) Lymph # Seg Neutrophils % D-Dimer > 82084 H POC ABG pH POC ABG pCO2 POC ABG pO2 134 H Sodium Carbon Dioxide Creatinine Glucose POC Glucose 203 H Total Creatine Kinase CK-MB (CK-2) CK-MB (CK-2) Rel Index Troponin T NT-Pro-B Natriuret Pep HDL Cholesterol 12/17/18 12/17/18 12/17/18 13:38 18:05 23:34 MCHC RDW Plt Count [place] % (Auto) Lymph # Seg Neutrophils % D-Dimer POC ABG pH POC ABG pCO2 POC ABG pO2 Sodium Carbon Dioxide Creatinine Glucose POC Glucose 171 H 179 H Total Creatine Kinase CK-MB (CK-2) CK-MB (CK-2) Rel Index Troponin T 0.051 H NT-Pro-B Natriuret Pep HDL Cholesterol 12/18/18 12/18/18 12/18/18 03:48 03:48 04:25 MCHC 35 H RDW 16.5 H Plt Count 104 L [place] % (Auto) Lymph # Seg Neutrophils % D-Dimer POC ABG pH 7.472 H POC ABG pCO2 30.7 L POC ABG pO2 75 L Sodium Carbon Dioxide 21 L Creatinine 1.7 H D Glucose 172 H POC Glucose Total Creatine Kinase CK-MB (CK-2) CK-MB (CK-2) Rel Index Troponin T NT-Pro-B Natriuret Pep HDL Cholesterol 12/18/18 05:05 MCHC RDW Plt Count [place] % (Auto) Lymph # Seg Neutrophils % D-Dimer POC ABG pH POC ABG pCO2 POC ABG pO2 Sodium Carbon Dioxide Creatinine Glucose POC Glucose 194 H Total Creatine Kinase CK-MB (CK-2) CK-MB (CK-2) Rel Index Troponin T NT-Pro-B Natriuret Pep HDL Cholesterol
[2018-12-18] MEDS: LEVOPHED DRIP 4 MG/NS 250 ML 4 MG/250 ML BAG IV SCH ×3 (08:38→23:01)
[2018-12-18] MEDS: LOVENOX SUB-Q SCH (09:12)
[2018-12-18] MEDS: ASPIRIN PO SCH (09:12)
[2018-12-18] MEDS ORDERED: PEPCID IV SCH (10:00)
--- NOTE | 2018-12-18 11:15 | Progress Note ---
Assessment and Plan 78 y/o female with seizure like activity, now intubated for airway protection, but has had a change in mental state and is comatose 1. Repeat Head CT when stable if possible. Patient cannot have MRI as she has metal in her body. 2. Discontinue all sedative medications 3. May need to consider holding keppra as well. Neurology evaluated today and did not make mention of this. They have ordered an EEG 4. Patient is now oliguric so unable to send UDS. Will give a fluid bolus and see if she makes any urine. Renal function is worsening. 5. Overall prognosis is guarded to poor 6. Nursing ordered picc line, hopeful they will have success. CCT 31 minutes. Subjective Date of service: 12/18/18 Interval history: Patient remains pressor dependent. Infusing through peripheral line as I could not place a central yesterday secondary to significant PVD and scarring from multiple prior procedures. No family currently at bedside. Objective Vital Signs - 12hr 12/17/18 12/17/18 12/18/18 23:25 23:30 00:01 Temperature Pulse Rate 80 81 83 Pulse Rate [ From Monitor] Respiratory 15 15 15 Rate Blood Pressure 91/49 93/52 73/44 O2 Sat by Pulse 99 100 98 Oximetry 12/18/18 12/18/18 12/18/18 00:30 01:00 01:30 Temperature Pulse Rate 83 82 81 Pulse Rate [ From Monitor] Respiratory 15 15 15 Rate Blood Pressure 78/44 95/53 165/86 O2 Sat by Pulse 96 98 96 Oximetry 12/18/18 12/18/18 12/18/18 02:00 02:30 02:43 Temperature Pulse Rate 85 83 86 Pulse Rate [ From Monitor] Respiratory 15 15 Rate Blood Pressure 92/57 86/56 96/60 O2 Sat by Pulse 95 96 100 Oximetry 12/18/18 12/18/18 12/18/18 03:00 03:29 03:31 Temperature 98.3 F Pulse Rate 86 84 Pulse Rate [ From Monitor] Respiratory 15 15 Rate Blood Pressure 97/57 101/56 O2 Sat by Pulse 100 Oximetry 12/18/18 12/18/18 12/18/18 04:00 04:31 05:00 Temperature Pulse Rate 82 82 83 Pulse Rate [ From Monitor] Respiratory 15 15 15 Rate Blood Pressure 83/56 164/71 103/61 O2 Sat by Pulse 98 98 97 Oximetry 12/18/18 12/18/18 12/18/18 05:30 06:00 06:30 Temperature Pulse Rate 82 82 81 Pulse Rate [ From Monitor] Respiratory 15 15 15 Rate Blood Pressure 89/53 90/51 83/36 O2 Sat by Pulse 97 96 98 Oximetry 12/18/18 12/18/18 12/18/18 07:00 07:30 07:36 Temperature Pulse Rate 82 81 82 Pulse Rate [ From Monitor] Respiratory 15 15 Rate Blood Pressure 79/46 77/44 77/44 O2 Sat by Pulse 96 97 100 Oximetry 12/18/18 12/18/18 12/18/18 08:00 08:31 09:00 Temperature 98.7 F Pulse Rate 82 82 83 Pulse Rate [ 82 From Monitor] Respiratory 15 15 15 Rate Blood Pressure 81/47 77/50 91/64 O2 Sat by Pulse 97 98 97 Oximetry 12/18/18 12/18/18 12/18/18 09:30 10:00 10:30 Temperature Pulse Rate 85 85 85 Pulse Rate [ From Monitor] Respiratory 15 15 15 Rate Blood Pressure 88/44 90/52 110/56 O2 Sat by Pulse 97 96 Oximetry Constitutional: comatose Eyes: injected ENT: other (orally intubated not on sedation) Neck: supple Ascultation: Bilateral: clear Percussion: Bilateral: not dull Cardiovascular: regular rate and rhythm Gastrointestinal: soft Neurologic: unable to assess CBC and BMP: 12/18/18 03:48 12/18/18 03:48 ABG, PT/INR, D-dimer: ABG POC ABG pH 7.472 (7.35-7.45) H 12/18/18 04:25 POC ABG pCO2 30.7 (35-45) L 12/18/18 04:25 POC ABG pO2 75 (80-105) L 12/18/18 04:25 POC ABG HCO3 22.4 12/18/18 04:25 POC ABG Total CO2 23 12/18/18 04:25 POC ABG O2 Sat 96 12/18/18 04:25 PT/INR, D-dimer PT 14.8 Sec. (12.2-14.9) 12/16/18 15:19 INR 1.09 (0.87-1.13) 12/16/18 15:19 D-Dimer > 10112 ng/mlDDU (0-234) H 12/17/18 12:44 Abnormal lab findings: Abnormal Labs 12/16/18 12/16/18 12/16/18 00:00 15:19 15:19 MCHC RDW 16.7 H Plt Count [place] % (Auto) 9.8 H Lymph # 1.1 L Seg Neutrophils % 71.2 H D-Dimer POC ABG pH POC ABG pCO2 POC ABG pO2 Sodium 136 L Carbon Dioxide 21 L Creatinine 0.5 L Glucose 109 H POC Glucose Total Creatine Kinase 138 H CK-MB (CK-2) 5.4 H CK-MB (CK-2) Rel Index 4.3 H Troponin T 0.075 H NT-Pro-B Natriuret Pep HDL Cholesterol 12/16/18 12/16/18 12/17/18 15:19 17:53 00:02 MCHC RDW Plt Count [place] % (Auto) Lymph # Seg Neutrophils % D-Dimer POC ABG pH POC ABG pCO2 POC ABG pO2 402 H Sodium Carbon Dioxide Creatinine Glucose POC Glucose 238 H Total Creatine Kinase CK-MB (CK-2) CK-MB (CK-2) Rel Index Troponin T NT-Pro-B Natriuret Pep 1574 H HDL Cholesterol 12/17/18 12/17/18 12/17/18 03:56 03:56 05:38 MCHC RDW Plt Count [place] % (Auto) Lymph # Seg Neutrophils % D-Dimer POC ABG pH POC ABG pCO2 POC ABG pO2 Sodium Carbon Dioxide Creatinine Glucose POC Glucose 218 H Total Creatine Kinase CK-MB (CK-2) 6.5 H CK-MB (CK-2) Rel Index 5.3 H Troponin T 0.062 H D NT-Pro-B Natriuret Pep HDL Cholesterol 63 H 12/17/18 12/17/18 12/17/18 05:53 12:07 12:44 MCHC RDW Plt Count [place] % (Auto) Lymph # Seg Neutrophils % D-Dimer > 14832 H POC ABG pH POC ABG pCO2 POC ABG pO2 134 H Sodium Carbon Dioxide Creatinine Glucose POC Glucose 203 H Total Creatine Kinase CK-MB (CK-2) CK-MB (CK-2) Rel Index Troponin T NT-Pro-B Natriuret Pep HDL Cholesterol 12/17/18 12/17/18 12/17/18 13:38 18:05 23:34 MCHC RDW Plt Count [place] % (Auto) Lymph # Seg Neutrophils % D-Dimer POC ABG pH POC ABG pCO2 POC ABG pO2 Sodium Carbon Dioxide Creatinine Glucose POC Glucose 171 H 179 H Total Creatine Kinase CK-MB (CK-2) CK-MB (CK-2) Rel Index Troponin T 0.051 H NT-Pro-B Natriuret Pep HDL Cholesterol 12/18/18 12/18/18 12/18/18 03:48 03:48 04:25 MCHC 35 H RDW 16.5 H Plt Count 104 L [place] % (Auto) Lymph # Seg Neutrophils % D-Dimer POC ABG pH 7.472 H POC ABG pCO2 30.7 L POC ABG pO2 75 L Sodium Carbon Dioxide 21 L Creatinine 1.7 H D Glucose 172 H POC Glucose Total Creatine Kinase CK-MB (CK-2) CK-MB (CK-2) Rel Index Troponin T NT-Pro-B Natriuret Pep HDL Cholesterol 12/18/18 05:05 MCHC RDW Plt Count [place] % (Auto) Lymph # Seg Neutrophils % D-Dimer POC ABG pH POC ABG pCO2 POC ABG pO2 Sodium Carbon Dioxide Creatinine Glucose POC Glucose 194 H Total Creatine Kinase CK-MB (CK-2) CK-MB (CK-2) Rel Index Troponin T NT-Pro-B Natriuret Pep HDL Cholesterol
--- NOTE | 2018-12-18 11:25 | Event Note ---
Date: 12/18/18 Cardiology Full note dictated. Dr. Steiner.
[2018-12-18] MEDS ORDERED: NACL 0.9% 1000 ML 1,000 ML IV SCH ×2 (12:00→16:00)
[2018-12-18 13:09] LABS: Creatine Kinase MB 5.2 ng/mL (0.0-4.0)
--- NOTE | 2018-12-18 14:18 | Consultation ---
The patient is in CCU 259. REASON FOR CONSULTATION: Consult requested for elevated troponin level. HISTORY OF PRESENT ILLNESS: History is mainly obtained by going through all the medical records and Emergency Room notes. The patient is intubated and comatose. This 78-year-old female brought in by EMS, found on the floor at home. When she arrived in the Emergency Room, she was awake, alert and she had jerking convulsions. The patient was given Versed and Ativan for possible seizure activity. The patient was agitated and given sedation. Subsequently, she was intubated. Because of her moribund condition IV was started by putting 18-gauge IV into right external jugular vein by ER doctor. Noncontrast CT was done in the Emergency Room of the brain, which revealed motion artifact and a small bleed could not be excluded. Her troponin level was noted to be 0.051 ng/mL. Normal being of 2.029. Her creatinine is 1.7. HOME MEDICATIONS: Include the following: Clopidogrel taken still 10/20/2017. Ellipta 100/25 mcg, INH 1 puff per day, insulin as needed, Desyrel 50 mg p.o. at bedtime, Lipitor 40 mg once a day, Carvedilol 3.125 b.i.d., Fosamax 70 mg once a week, Gabapentin 300 mg once a day, tramadol 50 mg twice a day p.r.n., Valsartan 160 mg once a day. Active medications as per ICU records as follows: Aspirin 325 mg once a day, Lovenox 40 mg subcu once a day, hydralazine 10 mg IV p.r.n. for blood pressure more than 170, Keppra 500 mg IV q.12 hours, Humalog as needed, Zofran 4 mg p.r.n. PHYSICAL EXAMINATION: GENERAL: The patient is intubated and not responding. VITAL SIGNS: Blood pressure 102/63, mean blood pressure is 76, respirations 15 per minute, pulse rate 86 per minute. HEENT: The patient's pupils are dilated, not reactive. NECK: No JVD elevation, no bruits noted. HEART: PMI is not palpable. Heart sounds heard well. No significant murmur OR rubs heard. LUNGS: Reveal diminished breath sounds at the right base. ABDOMEN: Soft, nontender. Liver is not palpable. EXTREMITIES: No edema. Pedal pulses +1. LABORATORY DATA: EKG sinus rhythm within normal limits. Chest x-ray revealed possible right lower lobe atelectasis. Endotracheal tube above jessica. Blood gases pH is 7.472, pCO2 of 30, pO2 of 75 on FiO2 of 40% while on the respirator. Electrolytes are normal. BUN is 17, creatinine 1.7. Glucose 172. Random sample. Troponin is 0.051 mg per mL. D-dimer above 10,000. ASSESSMENT AND PLAN: 1. Acute respiratory failure. 2. She is a new onset. 3. History of hypertension. 4. Diabetes mellitus, on insulin. 5. Peripheral vascular disease. 6. Mild elevation of troponin. DISCUSSION: Troponin elevation is probably reflecting her acute illness. NSTEMI, type 2. The patient will have echocardiogram to see her left ventricular function and any valve disease. Rest of the plan as per ICU protocol. JOB# [id number] ELIAS/JHONNY VALLADARES
--- NOTE | 2018-12-18 14:40 | Progress Note ---
Assessment and Plan Assessment and plan: Patient is 78-year-old with a history of hypertension, asthma, diabetes, peripheral vascular disease, legally blind, GERD was brought to the emergency room for evaluation. Brother told me she fell at home and it took them about 90 mins to get mccracken ang open her door and she was having seizures when they found her on floor and she was brought to ED. She was intubated, placed on vent and admitted to ICU. She is comatose, completely unresponsive, hypotensive, started on Lopressor. She was also hypothermic, placed on warming blanket. Myself and Dr. Manuel, spoke to family yesterday, discussing poor prognosis and code status and family wants full code. Acute respiratory failure. Intubated Followed by pulmonology Encephalopathy, Unresponsive likely anoxic encephalopathy Neurochecks Dr. Carrero following For EEG Hypotension Started on levophed Difficult to get central line yesterday, PICC line placed Diabetes Mellitus Type II. Accu-Chek Peripheral vascular disease status post multiple vascular procedures lower extremities History of hypertension. BP low currently Full code status. Discussed with family yesterday. They want everything done to keep her alive. Very poor prognosis History Interval history: Still unresponsive Hospitalist Physical - Physical exam Narrative exam: GEN: Not in acute distress, intubated, obese HEENT: Normocephalic, atraumatic, Neck: supple, No JVD Lungs: Clear to auscultation, no wheeze Heart:S1 and S2 regular, no murmurs, rubs or gallop, Abd:soft, non tender, non distended,normal bowel sounds, Ext: No edema, no clubbing or cyanosis Neuro: [place], unresponsive, does not follow commands - Constitutional Vitals: Temp Pulse Resp BP Pulse Ox 99.3 F 86 15 102/63 96 12/18/18 12:00 12/18/18 11:59 12/18/18 11:00 12/18/18 11:59 12/18/18 11:59 Results - Labs CBC & Chem 7: 12/18/18 03:48 12/18/18 03:48 Labs: Laboratory Last Values WBC 8.9 K/mm3 (4.5-11.0) 12/18/18 03:48 RBC 4.15 M/mm3 (3.65-5.03) 12/18/18 03:48 Hgb 11.8 gm/dl (10.1-14.3) 12/18/18 03:48 Hct 34.2 % (30.3-42.9) D 12/18/18 03:48 MCV 82 fl (79-97) 12/18/18 03:48 MCH 29 pg (28-32) 12/18/18 03:48 MCHC 35 % (30-34) H 12/18/18 03:48 RDW 16.5 % (13.2-15.2) H 12/18/18 03:48 Plt Count 104 K/mm3 (140-440) L 12/18/18 03:48 Lymph % (Auto) 16.8 % (13.4-35.0) 12/16/18 15:19 [place] % (Auto) 9.8 % (0.0-7.3) H 12/16/18 15:19 Eos % (Auto) 1.7 % (0.0-4.3) 12/16/18 15:19 Baso % (Auto) 0.5 % (0.0-1.8) 12/16/18 15:19 Lymph # 1.1 K/mm3 (1.2-5.4) L 12/16/18 15:19 [place] # 0.6 K/mm3 (0.0-0.8) 12/16/18 15:19 Eos # 0.1 K/mm3 (0.0-0.4) 12/16/18 15:19 Baso # 0.0 K/mm3 (0.0-0.1) 12/16/18 15:19 Seg Neutrophils % 71.2 % (40.0-70.0) H 12/16/18 15:19 Seg Neutrophils # 4.5 K/mm3 (1.8-7.7) 12/16/18 15:19 PT 14.8 Sec. (12.2-14.9) 12/16/18 15:19 INR 1.09 (0.87-1.13) 12/16/18 15:19 APTT 24.3 Sec. (24.2-36.6) 12/16/18 15:19 Thrombin Time 15.2 Sec. (15.1-19.6) 12/16/18 15:19 D-Dimer > 72446 ng/mlDDU (0-234) H 12/17/18 12:44 POC ABG pH 7.472 (7.35-7.45) H 12/18/18 04:25 POC ABG pCO2 30.7 (35-45) L 12/18/18 04:25 POC ABG pO2 75 (80-105) L 12/18/18 04:25 POC ABG HCO3 22.4 12/18/18 04:25 POC ABG Total CO2 23 12/18/18 04:25 POC ABG O2 Sat 96 12/18/18 04:25 POC ABG Base Excess -1 12/18/18 04:25 FiO2 30 % 12/18/18 04:25 Sodium 142 mmol/L (137-145) 12/18/18 03:48 Potassium 3.8 mmol/L (3.6-5.0) 12/18/18 03:48 Chloride 105.4 mmol/L (98-107) 12/18/18 03:48 Carbon Dioxide 21 mmol/L (22-30) L 12/18/18 03:48 Anion Gap 19 mmol/L 12/18/18 03:48 BUN 17 mg/dL (7-17) 12/18/18 03:48 Creatinine 1.7 mg/dL (0.7-1.2) H D 12/18/18 03:48 Estimated GFR 35 ml/min 12/18/18 03:48 BUN/Creatinine Ratio 10 % 12/18/18 03:48 Glucose 172 mg/dL (65-100) H 12/18/18 03:48 POC Glucose 174 (70-105) H 12/18/18 12:22 Lactic Acid 1.10 mmol/L (0.7-2.0) 12/16/18 16:42 Calcium 9.1 mg/dL (8.4-10.2) 12/18/18 03:48 Total Bilirubin 0.70 mg/dL (0.1-1.2) 12/16/18 15:19 Direct Bilirubin < 0.2 mg/dL (0-0.2) 12/16/18 15:19 Indirect Bilirubin 0.5 mg/dL 12/16/18 15:19 AST 28 units/L (5-40) 12/16/18 15:19 ALT 14 units/L (7-56) 12/16/18 15:19 Alkaline Phosphatase 85 units/L (35-129) 12/16/18 15:19 Total Creatine Kinase 388 units/L (30-135) H 12/18/18 12:44 CK-MB (CK-2) 5.2 ng/mL (0.0-4.0) H 12/18/18 12:44 CK-MB (CK-2) Rel Index 1.3 (0-4) 12/18/18 12:44 Troponin T 0.205 ng/mL (0.00-0.029) H* D 12/18/18 12:44 NT-Pro-B Natriuret Pep 1574 pg/mL (0-900) H 12/16/18 15:19 Total Protein 7.8 g/dL (6.3-8.2) 12/16/18 15:19 Albumin 4.4 g/dL (3.9-5) 12/16/18 15:19 Albumin/Globulin Ratio 1.3 % 12/16/18 15:19 Triglycerides 64 mg/dL (2-149) 12/17/18 03:56 Cholesterol 159 mg/dL (50-199) 12/17/18 03:56 LDL Cholesterol Direct 89 mg/dL (50-130) 12/17/18 03:56 HDL Cholesterol 63 mg/dL (40-59) H 12/17/18 03:56 Cholesterol/HDL Ratio 2.52 % 12/17/18 03:56 Urine Color Straw (Yellow) 12/16/18 Unknown Urine Turbidity Clear (Clear) 12/16/18 Unknown Urine pH 7.0 (5.0-7.0) 12/16/18 Unknown Ur Specific [place] 1.010 (1.003-1.030) 12/16/18 Unknown Urine Protein >500 mg/dL (Negative) 12/16/18 Unknown Urine Glucose (UA) Neg mg/dL (Negative) 12/16/18 Unknown Urine Ketones Neg mg/dL (Negative) 12/16/18 Unknown Urine Blood Neg (Negative) 12/16/18 Unknown Urine Nitrite Neg (Negative) 12/16/18 Unknown Urine Bilirubin Neg (Negative) 12/16/18 Unknown Urine Urobilinogen < 2.0 mg/dL (<2.0) 12/16/18 Unknown Ur Leukocyte Esterase Neg (Negative) 12/16/18 Unknown Urine WBC (Auto) 1.0 /HPF (0.0-6.0) 12/16/18 Unknown Urine RBC (Auto) 2.0 /HPF (0.0-6.0) 12/16/18 Unknown U Epithel Cells (Auto) < 1.0 /HPF (0-13.0) 12/16/18 Unknown Urine Bacteria (Auto) 1+ /HPF (Negative) 12/16/18 Unknown Nutrition/Malnutrition Assess - Dietary Evaluation Nutrition/Malnutrition Findings: Nutrition Notes Start: 12/18/18 12:06 Freq: Status: Active Protocol: Document 12/18/18 12:06 LP (Rec: 12/18/18 12:11 LP [id number]) Nutrition Notes Need for Assessment generated from: MD Order Initial or Follow up Assessment Current Diagnosis COPD Diabetes Hypertension Heart Failure Respiratory Failure Stroke Current Diet NPO Labs/Tests BG 172 Cr 1.7 Pertinent Medications Reviewed Height 5 ft 6 in Weight 95 kg Enderlin Body Weight (kg) 59.09 BMI 33.7 Subjective/Other Information Consult for evaluate nutrition intake. Pt on vent. Waiting for TF consult. Burn Absent Trauma Absent #1 Nutrition Diagnosis Inadequate oral intake Etiology vent As Evidenced by Signs and Symptoms Pt NPO and unable to consume PO Is patient on ventilator? Yes Is Patient Ambulatory and/or Out of Bed No REE-([facility]-confined to bed) 9616.448 Calculation Used for Recommendations [facility] Additional Notes Protein needs are 118g (2g/kg) Fluid needs are 1ml/kcal Nutrition Intervention Change Diet Order: TF once consulted Nutrition Support: Vital 1.2 at 60ml/hr Flush with 100ml q4h Kcal 1,728 Protein (gm) 108 Fluid (mL) 1,168 Goal #1 Consult for TF Anticipated Discharge Needs: Unable to determine at this time Follow-Up By: 12/20/18 Additional Comments Follow for TF consult for extubation
--- NOTE | 2018-12-18 15:32 | XRay Report ---
AP CHEST: HISTORY: Right arm PICC placement A right arm PICC has been inserted which terminates in the lower SVC. The remainder of the examination is unchanged since earlier today at 0230 hours. IMPRESSION: Right arm PICC placement as described.
[2018-12-18] MEDS ORDERED: VANCOMYCIN PHARMACY TO DOSE IV SCH (17:00)
[2018-12-18] MEDS ORDERED: VANCOMYCIN 1,500 MG in NACL 0.9% 500 ML 500 ML IV SCH (18:00)
[2018-12-18] MEDS: MAXIPIME/NS 1 GM/100 ML 1 GM/100 ML BAG IV SCH (19:18)
[2018-12-18] MEDS ORDERED: MAXIPIME/NS 2 GM/100 ML 2 GM/100 ML BAG IV SCH (22:00)
[2018-12-19] MEDS: HumaLOG SUB-Q SCH ×2 (00:11→05:17)
--- NOTE | 2018-12-19 03:12 | XRay Report ---
PROCEDURE: XR CHEST 1V AP TECHNIQUE: A portable upright view of the chest was obtained. HISTORY: follow up respiratory failure COMPARISONS: 12/18/2018 FINDINGS: The heart size is normal. There is bibasilar atelectasis. There are no acute infiltrates, effusions o r pneumothoraces. Tip of the endotracheal tube is 2.8 cm above the jessica. NG tube is in the stomach. There is a right- sided PICC line. The tip is in the superior vena cava. IMPRESSION: There is bibasilar atelectasis. There are no acute infiltrates, effusions or pneumothoraces. Tip of the endotracheal tube is 2.8 cm above the jessica. NG tube is in the stomach. There is a right- sided PICC line. The tip is in the superior vena cava. This document is electronically signed by Luis Ybarra MD., December 19 2018 03:10:07 AM ET
[2018-12-19] MEDS: LEVOPHED DRIP 4 MG/NS 250 ML 4 MG/250 ML BAG IV SCH ×2 (04:51→12:53)
[2018-12-19] MEDS: KEPPRA 1,000 MG in NACL 0.9% 100 ML IV SCH (05:09)
[2018-12-19] MEDS: MAXIPIME/NS 1 GM/100 ML 1 GM/100 ML BAG IV SCH (06:21)
--- NOTE | 2018-12-19 08:56 | Progress Note ---
Assessment and Plan Acute respiratory failure on ventilatory support Shock. Poorly responsive does far to volume expansion, on pressors Seizure like activity, intubated for airway protection AMS, comatose. Unable to perform MRI Recommendations I am repeating another 500 mL normal saline If not response will add vasopressin f/u hospital ventilator bundle, Mechanical ventilation support, currently adequate oximetry at the bedside Set tidal Volume set initially at 6-8 cm PBW for SCAR protection Keep PIP < 30 Neurology follow-up and monitor neurologic changes. Suspect metabolic encephalopathy at this point, head CT scan ankles inclusive for additional changes DVT prophylaxis PPI prophylaxis Follow neurologically recommendations Monitor seizures, EEG, Keppra Critical care time was 31 minutes of [id number] evaluation and coordination of care Subjective Date of service: 12/19/18 Principal diagnosis: AMS, seizure, acute respiratory failure Interval history: Intubated and nonresponsive Objective Vital Signs - 12hr 12/18/18 12/18/18 12/18/18 21:00 21:30 22:00 Temperature Pulse Rate 84 84 85 Pulse Rate [ From Monitor] Respiratory 15 15 15 Rate Blood Pressure 103/55 93/58 108/54 O2 Sat by Pulse 97 97 97 Oximetry 12/18/18 12/18/18 12/18/18 22:30 23:00 23:30 Temperature Pulse Rate 82 80 83 Pulse Rate [ From Monitor] Respiratory 15 15 15 Rate Blood Pressure 102/52 76/50 92/59 O2 Sat by Pulse 98 96 Oximetry 12/18/18 12/18/18 12/18/18 23:32 23:36 23:47 Temperature 98.9 F Pulse Rate 82 82 Pulse Rate [ From Monitor] Respiratory 15 Rate Blood Pressure 92/59 101/54 O2 Sat by Pulse 99 99 Oximetry 12/19/18 12/19/18 12/19/18 00:00 00:30 01:00 Temperature Pulse Rate 83 84 86 Pulse Rate [ 83 From Monitor] Respiratory 15 15 15 Rate Blood Pressure 93/58 98/57 87/49 O2 Sat by Pulse 99 99 97 Oximetry 12/19/18 12/19/18 12/19/18 01:30 02:00 02:30 Temperature Pulse Rate 84 86 85 Pulse Rate [ From Monitor] Respiratory 15 15 15 Rate Blood Pressure 83/56 101/63 94/52 O2 Sat by Pulse 97 98 98 Oximetry 12/19/18 12/19/18 12/19/18 03:00 03:25 03:30 Temperature Pulse Rate 83 82 82 Pulse Rate [ From Monitor] Respiratory 15 15 Rate Blood Pressure 89/46 87/51 91/52 O2 Sat by Pulse 97 99 Oximetry 12/19/18 12/19/18 12/19/18 03:33 04:00 04:30 Temperature 99.1 F Pulse Rate 82 78 Pulse Rate [ 81 From Monitor] Respiratory 15 15 Rate Blood Pressure 82/52 75/37 O2 Sat by Pulse 98 93 Oximetry 12/19/18 12/19/18 12/19/18 05:00 05:30 06:00 Temperature Pulse Rate 84 83 84 Pulse Rate [ From Monitor] Respiratory 15 15 15 Rate Blood Pressure 90/51 78/48 90/46 O2 Sat by Pulse 96 96 Oximetry 12/19/18 12/19/18 07:31 08:08 Temperature 98.3 F Pulse Rate 94 H Pulse Rate [ From Monitor] Respiratory Rate Blood Pressure 73/46 O2 Sat by Pulse 94 Oximetry Constitutional: no acute distress, comatose Eyes: injected ENT: other (orally intubated not on sedation) Neck: supple, no JVD Ascultation: Bilateral: clear Percussion: Bilateral: not dull Cardiovascular: regular rate and rhythm Gastrointestinal: soft Extremities: no cyanosis, no edema Neurologic: unable to assess, other (GCS~3-4) CBC and BMP: 12/18/18 03:48 12/18/18 03:48 ABG, PT/INR, D-dimer: ABG POC ABG pH 7.360 (7.35-7.45) 12/19/18 06:11 POC ABG pCO2 33.2 (35-45) L 12/19/18 06:11 POC ABG pO2 76 (80-105) L 12/19/18 06:11 POC ABG HCO3 18.8 12/19/18 06:11 POC ABG Total CO2 20 12/19/18 06:11 POC ABG O2 Sat 95 12/19/18 06:11 PT/INR, D-dimer PT 14.8 Sec. (12.2-14.9) 12/16/18 15:19 INR 1.09 (0.87-1.13) 12/16/18 15:19 D-Dimer > 05487 ng/mlDDU (0-234) H 12/17/18 12:44 Abnormal lab findings: Abnormal Labs 12/16/18 12/16/18 12/16/18 00:00 15:19 15:19 MCHC RDW 16.7 H Plt Count [place] % (Auto) 9.8 H Lymph # 1.1 L Seg Neutrophils % 71.2 H D-Dimer POC ABG pH POC ABG pCO2 POC ABG pO2 Sodium 136 L Carbon Dioxide 21 L Creatinine 0.5 L Glucose 109 H POC Glucose Total Creatine Kinase 138 H CK-MB (CK-2) 5.4 H CK-MB (CK-2) Rel Index 4.3 H Troponin T 0.075 H NT-Pro-B Natriuret Pep HDL Cholesterol 12/16/18 12/16/18 12/17/18 15:19 17:53 00:02 MCHC RDW Plt Count [place] % (Auto) Lymph # Seg Neutrophils % D-Dimer POC ABG pH POC ABG pCO2 POC ABG pO2 402 H Sodium Carbon Dioxide Creatinine Glucose POC Glucose 238 H Total Creatine Kinase CK-MB (CK-2) CK-MB (CK-2) Rel Index Troponin T NT-Pro-B Natriuret Pep 1574 H HDL Cholesterol 12/17/18 12/17/18 12/17/18 03:56 03:56 05:38 MCHC RDW Plt Count [place] % (Auto) Lymph # Seg Neutrophils % D-Dimer POC ABG pH POC ABG pCO2 POC ABG pO2 Sodium Carbon Dioxide Creatinine Glucose POC Glucose 218 H Total Creatine Kinase CK-MB (CK-2) 6.5 H CK-MB (CK-2) Rel Index 5.3 H Troponin T 0.062 H D NT-Pro-B Natriuret Pep HDL Cholesterol 63 H 12/17/18 12/17/18 12/17/18 05:53 12:07 12:44 MCHC RDW Plt Count [place] % (Auto) Lymph # Seg Neutrophils % D-Dimer > 58913 H POC ABG pH POC ABG pCO2 POC ABG pO2 134 H Sodium Carbon Dioxide Creatinine Glucose POC Glucose 203 H Total Creatine Kinase CK-MB (CK-2) CK-MB (CK-2) Rel Index Troponin T NT-Pro-B Natriuret Pep HDL Cholesterol 12/17/18 12/17/18 12/17/18 13:38 18:05 23:34 MCHC RDW Plt Count [place] % (Auto) Lymph # Seg Neutrophils % D-Dimer POC ABG pH POC ABG pCO2 POC ABG pO2 Sodium Carbon Dioxide Creatinine Glucose POC Glucose 171 H 179 H Total Creatine Kinase CK-MB (CK-2) CK-MB (CK-2) Rel Index Troponin T 0.051 H NT-Pro-B Natriuret Pep HDL Cholesterol 12/18/18 12/18/18 12/18/18 03:48 03:48 04:25 MCHC 35 H RDW 16.5 H Plt Count 104 L [place] % (Auto) Lymph # Seg Neutrophils % D-Dimer POC ABG pH 7.472 H POC ABG pCO2 30.7 L POC ABG pO2 75 L Sodium Carbon Dioxide 21 L Creatinine 1.7 H D Glucose 172 H POC Glucose Total Creatine Kinase CK-MB (CK-2) CK-MB (CK-2) Rel Index Troponin T NT-Pro-B Natriuret Pep HDL Cholesterol 12/18/18 12/18/18 12/18/18 05:05 12:22 12:44 MCHC RDW Plt Count [place] % (Auto) Lymph # Seg Neutrophils % D-Dimer POC ABG pH POC ABG pCO2 POC ABG pO2 Sodium Carbon Dioxide Creatinine Glucose POC Glucose 194 H 174 H Total Creatine Kinase 388 H CK-MB (CK-2) 5.2 H CK-MB (CK-2) Rel Index Troponin T 0.205 H* D NT-Pro-B Natriuret Pep HDL Cholesterol 12/18/18 12/19/18 12/19/18 18:12 00:04 05:12 MCHC RDW Plt Count [place] % (Auto) Lymph # Seg Neutrophils % D-Dimer POC ABG pH POC ABG pCO2 POC ABG pO2 Sodium Carbon Dioxide Creatinine Glucose POC Glucose 200 H 200 H 178 H Total Creatine Kinase CK-MB (CK-2) CK-MB (CK-2) Rel Index Troponin T NT-Pro-B Natriuret Pep HDL Cholesterol 12/19/18 06:11 MCHC RDW Plt Count [place] % (Auto) Lymph # Seg Neutrophils % D-Dimer POC ABG pH POC ABG pCO2 33.2 L POC ABG pO2 76 L Sodium Carbon Dioxide Creatinine Glucose POC Glucose Total Creatine Kinase CK-MB (CK-2) CK-MB (CK-2) Rel Index Troponin T NT-Pro-B Natriuret Pep HDL Cholesterol
[2018-12-19] MEDS ORDERED: ADRENALIN 8 MG in NACL 0.9% 250ML 242 ML IV SCH (09:00)
[2018-12-19] MEDS ORDERED: NACL 0.9% 500 ML 500 ML IV ONE (10:00)
[2018-12-19] MEDS ORDERED: Vasostrict 20 UNIT in NACL 0.9% 100 ML IV SCH (10:00)
[2018-12-19] MEDS ORDERED: NACL 0.9% 500 ML 500 ML IV SCH (10:00)
[2018-12-19] MEDS: LOVENOX SUB-Q SCH (10:49)
[2018-12-19 11:20] VITALS: BP 54/32
--- NOTE | 2018-12-19 13:48 | Progress Note ---
Assessment and Plan Echo reviewed - EF 45-50%, mod LVH, abnormal diastolic function, mild to mod TR, small pericardial effusion. Cont supportive measures. Overall poor prognosis. Assessment and plan reviewed with pt's brother at bedside. He wishes to convert pt's code status to DNR. The patient has been seen in conjunction with Dr. Cano who agrees with the assessment and plan of care. - Patient Problems (1) Seizures Current Visit: Yes Status: Acute (2) Acute respiratory failure Current Visit: Yes Status: Acute (3) Altered mental status Current Visit: Yes Status: Acute (4) Elevated troponin Current Visit: Yes Status: Acute (5) Hypotension Current Visit: Yes Status: Acute (6) Type II diabetes mellitus Current Visit: Yes Status: Chronic Qualifiers: Diabetes mellitus terminal system operator insulin use: with terminal system operator use Diabetes mellitus complication status: with ophthalmic complications Diabetes mellitus complication detail: with cataract Qualified Code(s): E11.36 - Type 2 diabetes mellitus with diabetic cataract; Z79.4 - [facility] (current) use of insulin (7) PAD (peripheral artery disease) Current Visit: Yes Status: Chronic Subjective Date of service: 12/19/18 Principal diagnosis: AMS, seizure, acute respiratory failure Interval history: pt remains intubated, nonresponsive off sedation. hypotensive requiring levophed gtt. brother at bedside. Objective Last Vital Signs Temp 97.5 F L 12/19/18 11:37 Pulse 89 12/19/18 11:16 Resp 15 12/19/18 08:00 BP 54/32 12/19/18 11:16 Pulse Ox 94 12/19/18 11:16 - Physical Examination General: Other (intubated, nonresponsive) HEENT: Positive: Other (pupils fixed and dilated) Cardiac: Positive: Reg Rate and Rhythm, S1/S2 Lungs: Positive: Decreased Breath Sounds, Ventilated Respirations Neuro: Positive: Other (intubated, nonresponsive) Extremities: Absent: edema - Imaging and Cardiology EKG: report reviewed, image reviewed - Telemetry EKG Rhythm: Sinus Rhythm
--- NOTE | 2018-12-19 14:06 | Event Note ---
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
--- NOTE | 2018-12-19 16:26 | Death Summary ---
Summary - Providers Date of service: 12/19/18 Consults: 12/16/18 Consult to Physician [CONS] Routine Comment: Consulting Provider: ARDEN CARRERO Physician Instructions: Reason For Exam: cva 12/16/18 14:58 Consult to Physician [CONS] Urgent Comment: Consulting Provider: MAXIMO MOLINA Physician Instructions: Reason For Exam: cva 12/16/18 17:13 Consult to Dietitian/Nutrition [CONS] Routine Physician Instructions: Reason For Exam: Reason for Consult: Evaluate nutritional intake Consult to Physician [CONS] Stat Comment: Dr. Manuel notified @ 17:26- [facility] Consulting Provider: HOWARD MANUEL Physician Instructions: Reason For Exam: ett placement 12/17/18 14:44 Consult to Physician [CONS] Routine Comment: Consulting Provider: SANAZ MCKEON Physician Instructions: Reason For Exam: Elevated troponin 12/18/18 08:43 PICC Line Insertion [Consult to PICC Line RN] [CONS] Stat Reason For Exam: Pt on pressors Type Line:: PICC Attending: KITTY BURK - summary Date of admission: 12/16/18 21:54 Date of : 12/19/18 Significant findings: Patient is 78-year-old with a history of hypertension, asthma, diabetes, peripheral vascular disease, legally blind, GERD was brought to the emergency room for evaluation. Brother told me she fell at home and it took them about 90 mins to get mccracken ang open her door and she was having seizures when they found her on floor and she was brought to ED. She was intubated, placed on vent and admitted to ICU. She was comatose, completely unresponsive, hypotensive, started on pressors. She was also hypothermic, placed on warming blanket. Family was discussed about poor prognosis and code status but they wanted full code. But today after discussing with cardiology brother changed her code status to DNR. Today patient noted to be asystole on monitor at 13:47, family called by RN, patient pronounced at 13:50. 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 s/p Intubation, Followed by pulmonology /Encephalopathy, Unresponsive likely anoxic encephalopathy Dr. Carrero was following, EEG showed minimal to no brain activity /Hypotension placed on levophed Difficult to get central line, PICC line placed /Diabetes Mellitus Type II. managed with Accu-Chek, SSI /Peripheral vascular disease status post multiple vascular procedures to lower extremities /History of hypertension. BP was low currently
--- NOTE | 2018-12-19 17:05 | Progress Note ---
Subjective Date of service: 12/19/18 Principal diagnosis: AMS, seizure, acute respiratory failure Interval history: made note of the EEG which showed minimal to no brain activity given severity of the anoxic injury the from asystole was totally anticipated given the severiity of anoxic injury... at no time did I anticipate a recovery to agonal event Objective - Vital Sign Vital Signs - 12hr 12/19/18 12/19/18 12/19/18 05:30 06:00 07:31 Temperature 98.3 F Pulse Rate 83 84 Pulse Rate [ From Monitor] Respiratory 15 15 Rate Blood Pressure 78/48 90/46 O2 Sat by Pulse 96 96 Oximetry 12/19/18 12/19/18 12/19/18 08:00 08:08 09:46 Temperature Pulse Rate 94 H 89 Pulse Rate [ 82 From Monitor] Respiratory 15 Rate Blood Pressure 73/46 O2 Sat by Pulse 98 94 Oximetry 12/19/18 12/19/18 11:16 11:37 Temperature 97.5 F L Pulse Rate 89 Pulse Rate [ From Monitor] Respiratory Rate Blood Pressure 54/32 O2 Sat by Pulse 94 Oximetry - Laboratory Findings CBC and BMP: 12/18/18 03:48 12/18/18 03:48 Abnormal Lab Findings: Abnormal Labs 12/16/18 12/16/18 12/16/18 00:00 15:19 15:19 MCHC RDW 16.7 H Plt Count [place] % (Auto) 9.8 H Lymph # 1.1 L Seg Neutrophils % 71.2 H D-Dimer POC ABG pH POC ABG pCO2 POC ABG pO2 Sodium 136 L Carbon Dioxide 21 L Creatinine 0.5 L Glucose 109 H POC Glucose Total Creatine Kinase 138 H CK-MB (CK-2) 5.4 H CK-MB (CK-2) Rel Index 4.3 H Troponin T 0.075 H NT-Pro-B Natriuret Pep HDL Cholesterol 12/16/18 12/16/18 12/17/18 15:19 17:53 00:02 MCHC RDW Plt Count [place] % (Auto) Lymph # Seg Neutrophils % D-Dimer POC ABG pH POC ABG pCO2 POC ABG pO2 402 H Sodium Carbon Dioxide Creatinine Glucose POC Glucose 238 H Total Creatine Kinase CK-MB (CK-2) CK-MB (CK-2) Rel Index Troponin T NT-Pro-B Natriuret Pep 1574 H HDL Cholesterol 12/17/18 12/17/18 12/17/18 03:56 03:56 05:38 MCHC RDW Plt Count [place] % (Auto) Lymph # Seg Neutrophils % D-Dimer POC ABG pH POC ABG pCO2 POC ABG pO2 Sodium Carbon Dioxide Creatinine Glucose POC Glucose 218 H Total Creatine Kinase CK-MB (CK-2) 6.5 H CK-MB (CK-2) Rel Index 5.3 H Troponin T 0.062 H D NT-Pro-B Natriuret Pep HDL Cholesterol 63 H 12/17/18 12/17/18 12/17/18 05:53 12:07 12:44 MCHC RDW Plt Count [place] % (Auto) Lymph # Seg Neutrophils % D-Dimer > 64732 H POC ABG pH POC ABG pCO2 POC ABG pO2 134 H Sodium Carbon Dioxide Creatinine Glucose POC Glucose 203 H Total Creatine Kinase CK-MB (CK-2) CK-MB (CK-2) Rel Index Troponin T NT-Pro-B Natriuret Pep HDL Cholesterol 12/17/18 12/17/18 12/17/18 13:38 18:05 23:34 MCHC RDW Plt Count [place] % (Auto) Lymph # Seg Neutrophils % D-Dimer POC ABG pH POC ABG pCO2 POC ABG pO2 Sodium Carbon Dioxide Creatinine Glucose POC Glucose 171 H 179 H Total Creatine Kinase CK-MB (CK-2) CK-MB (CK-2) Rel Index Troponin T 0.051 H NT-Pro-B Natriuret Pep HDL Cholesterol 12/18/18 12/18/18 12/18/18 03:48 03:48 04:25 MCHC 35 H RDW 16.5 H Plt Count 104 L [place] % (Auto) Lymph # Seg Neutrophils % D-Dimer POC ABG pH 7.472 H POC ABG pCO2 30.7 L POC ABG pO2 75 L Sodium Carbon Dioxide 21 L Creatinine 1.7 H D Glucose 172 H POC Glucose Total Creatine Kinase CK-MB (CK-2) CK-MB (CK-2) Rel Index Troponin T NT-Pro-B Natriuret Pep HDL Cholesterol 12/18/18 12/18/18 12/18/18 05:05 12:22 12:44 MCHC RDW Plt Count [place] % (Auto) Lymph # Seg Neutrophils % D-Dimer POC ABG pH POC ABG pCO2 POC ABG pO2 Sodium Carbon Dioxide Creatinine Glucose POC Glucose 194 H 174 H Total Creatine Kinase 388 H CK-MB (CK-2) 5.2 H CK-MB (CK-2) Rel Index Troponin T 0.205 H* D NT-Pro-B Natriuret Pep HDL Cholesterol 12/18/18 12/19/18 12/19/18 18:12 00:04 05:12 MCHC RDW Plt Count [place] % (Auto) Lymph # Seg Neutrophils % D-Dimer POC ABG pH POC ABG pCO2 POC ABG pO2 Sodium Carbon Dioxide Creatinine Glucose POC Glucose 200 H 200 H 178 H Total Creatine Kinase CK-MB (CK-2) CK-MB (CK-2) Rel Index Troponin T NT-Pro-B Natriuret Pep HDL Cholesterol 12/19/18 12/19/18 06:11 11:01 MCHC RDW Plt Count [place] % (Auto) Lymph # Seg Neutrophils % D-Dimer POC ABG pH POC ABG pCO2 33.2 L POC ABG pO2 76 L Sodium Carbon Dioxide Creatinine Glucose POC Glucose 167 H Total Creatine Kinase CK-MB (CK-2) CK-MB (CK-2) Rel Index Troponin T NT-Pro-B Natriuret Pep HDL Cholesterol
--- NOTE | 2018-12-19 19:34 | Consultation ---
HISTORY OF PRESENT ILLNESS: This EEG shows background rhythm, which is minimal activity. No evidence of any spike wave foci are present. The EEG is diffusely slow and low in amplitude. The majority of this EEG consists of EKG artifact with some muscle twitch artifact as well. Background cerebral rhythm is almost impossible to differentiate in this situation is minimal at best. I would not characterize this EEG as being diagnostic of being isoelectric, but is profoundly abnormal because of low amplitude and little evidence of cerebral activity. JOB# [id number] JUAN/JHONNY
[2018-12-20] MEDS ORDERED: MAXIPIME/NS 1 GM/100 ML 1 GM/100 ML BAG IV SCH (10:00)
== END 2018-12-19 18:20 | DRG 208 ==
LOC: ED 14:50 → CC1 21:54
PROVIDERS: ADMIT Internal Medicine; ATTEND Internal Medicine
PROC: 5A1945Z Respiratory Ventilation, 24-96 Consecutive Hours (ICD-10-PCS; principal; 2018-12-16)
PROC: 0BH17EZ Insertion of Endotracheal Airway into Trachea, Via Natural or Artificial Opening (ICD-10-PCS; 2018-12-16)
PROC: 4A033R1 Measurement of Arterial Saturation, Peripheral, Percutaneous Approach (ICD-10-PCS; 2018-12-16)
PROC: 02HV33Z Insertion of Infusion Device into Superior Vena Cava, Percutaneous Approach (ICD-10-PCS; 2018-12-18)
DX: J96.00 Acute respiratory failure, unspecified whether with hypoxia or hypercapnia (principal); I63.9 Cerebral infarction, unspecified; I21.A1 Myocardial infarction type 2; I31.3 Pericardial effusion (noninflammatory); G93.1 Anoxic brain damage, not elsewhere classified; I25.10 Atherosclerotic heart disease of native coronary artery without angina pectoris; I46.9 Cardiac arrest, cause unspecified; J45.909 Unspecified asthma, uncomplicated; E11.51 Type 2 diabetes mellitus with diabetic peripheral angiopathy without gangrene; I50.9 Heart failure, unspecified; I11.0 Hypertensive heart disease with heart failure; R29.707 NIHSS score 7; Z66 Do not resuscitate; H54.8 Legal blindness, as defined in USA; K21.9 Gastro-esophageal reflux disease without esophagitis; Z90.710 Acquired absence of both cervix and uterus; Z82.49 Family history of ischemic heart disease and other diseases of the circulatory system; Z91.010 Allergy to peanuts; Z88.8 Allergy status to other drugs, medicaments and biological substances; Z79.899 Other long term (current) drug therapy; Z79.4 Long term (current) use of insulin; Z79.51 Long term (current) use of inhaled steroids; Z68.33 Body mass index [BMI] 33.0-33.9, adult; Z86.718 Personal history of other venous thrombosis and embolism; Z79.01 Long term (current) use of anticoagulants; Z86.711 Personal history of pulmonary embolism; Z87.442 Personal history of urinary calculi
CPT/HCPCS: 36415; 36600; 70450; 70496; 70498; 71045; 80048; 80061; 80076; 81001; 82140; 82550; 82553; 82803; 82962; 83880; 84484; 85025; 85027; 85379; 85610; 85670; 85730; 87040; 87070; 87205; 93005; 93010; 93306; 94002; 94003; 95819; G0378; J0360; J0692; J1650; J1815; J1953; J2060; J2250; J2543; J3010; J3370; J7030; J7040; J7050; Q9967